=== PATIENT | male | born 1950 | race Caucasian/White ===

== ENCOUNTER 2020-10-07 13:13 | Inpatient (IN) | payer MEDICARE, OTHER ==
[2020-10-07] MEDS ORDERED: Sodium Chloride 0.9% 1,000 ML IV ONE ×2 (13:51→18:30)
--- NOTE | 2020-10-07 13:56 | EDM.PDOC ---
ED HPI GENERAL MEDICAL PROBLEM - General Chief Complaint: General Stated Complaint: NO APPETTIE/WEAKNESS/FALL Time Seen by Provider: 10/07/20 13:16 Source of Information: Reports: Patient History Limitations: Reports: No Limitations - History of Present Illness INITIAL COMMENTS - FREE TEXT/NARRATIVE: Patient is a 69-year-old male who presents today for weakness. Patient states for the past few days been more weak and tired you have difficulty getting himself dressed. He has a friend at the side of the bed who states the patient also has not been eating or drinking as much yesterday brought in food and made him eat a meal. Friend also reports that he came by today and patient was very shaky and cannot hold a glass of water he also notes that his house is very unkempt was not his baseline. Patient has had no fevers chills cough or other complaints. Patient did suffer a fall few days ago and has some bruising to his right hip patient is unsure if he hit his head or not. Bilat Hips Pain Score (Numeric/FACES): 5 - Related Data Allergies Allergy/AdvReac Type Severity Reaction Status Date / Time ammonia Allergy Anaphylactic Verified 03/13/16 10:51 Shock Antihistamines - Alkylamine Allergy Anaphylactic Verified 03/13/16 10:51 Shock Antihistamines - Ethanolamine Allergy Anaphylactic Verified 03/13/16 10:51 Shock Antihistamines - Allergy Anaphylactic Verified 03/13/16 10:51 Ethylenediamine Shock Antihistamines - Piperazine Allergy Anaphylactic Verified 03/13/16 10:51 Shock aspirin Allergy Bleeding Verified 03/13/16 10:51 caffeine Allergy Other Verified 03/13/16 10:51 clindamycin Allergy Redness Verified 03/13/16 10:51 cortisone Allergy Other Verified 03/13/16 10:51 diphenhydramine HCl Allergy Itching Verified 03/13/16 10:51 [From Benadryl] garlic Allergy Anaphylactic Verified 03/13/16 10:51 Shock latex Allergy Itching Verified 03/13/16 10:51 metoprolol Allergy Tachycardia Verified 03/13/16 10:51 NSAIDS (Non-Steroidal Allergy Bleeding Verified 03/13/16 10:51 Anti-Inflamma Penicillins Allergy Hives Verified 03/13/16 10:51 Home Meds: Home Meds Clindamycin HCl 150 mg PO TID 12/06/15 [History] Levothyroxine 25 mcg PO BEDTIME 12/06/15 [History] Montelukast [Singulair] 10 mg PO BEDTIME 12/06/15 [History] Simvastatin 20 mg PO BEDTIME 12/06/15 [History] Warfarin [Coumadin] 2.5 mg PO ASDIRECTED 12/06/15 [History] Warfarin [Coumadin] 5 mg PO ASDIRECTED 12/06/15 [History] Metoprolol Succinate [Toprol XL] 50 mg PO DAILY 30 Days tab.sr.24h 12/07/15 [Rx] Past Medical History HEENT History: Reports: Impaired Vision Other HEENT History: wears glasses Cardiovascular History: Reports: Afib, Hypertension, Other (See Below) Other Cardiovascular History: atrial flutter Respiratory History: Reports: Other (See Below) Other Respiratory History: allergy induced asthma Gastrointestinal History: Reports: GERD Musculoskeletal History: Reports: Back Pain, Chronic, Other (See Below) Other Musculoskeletal History: back pain/injury Psychiatric History: Reports: Dementia, Depression Endocrine/Metabolic History: Reports: Hypothyroidism Dermatologic History: Reports: Eczema, Other (See Below) Other Dermatologic History: hypersensitivity - Infectious Disease History Infectious Disease History: Reports: Influenza, Mumps - Past Surgical History Cardiovascular Surgical History: Reports: Cardiac Ablation GI Surgical History: Reports: None Musculoskeletal Surgical History: Reports: Other (See Below) Other Musculoskeletal Surgeries/Procedures:: cyst removal on his tail bone Social & Family History - Family History Family Medical History: No Pertinent Family History Cardiac: Reports: Bypass, Hypertension, Other (See Below) Other Cardiac Family History: heart attack OBGYN: Reports: Musculoskeletal: Reports: Osteoporosis Neurological: Reports: CVA, TIA Endocrine/Metabolic: Reports: Diabetes, type II Dermatologic: Reports: Eczema Oncologic: Reports: Lung - Caffeine Use Caffeine Use: Reports: None - Recreational Drug Use Recreational Drug Use: No ED ROS GENERAL - Review of Systems Review Of Systems: See Below Constitutional: Reports: No Symptoms HEENT: Reports: No Symptoms Respiratory: Reports: No Symptoms Cardiovascular: Reports: No Symptoms Endocrine: Reports: No Symptoms GI/Abdominal: Reports: No Symptoms : Reports: No Symptoms Musculoskeletal: Reports: No Symptoms Skin: Reports: No Symptoms Neurological: Reports: No Symptoms Psychiatric: Reports: No Symptoms Hematologic/Lymphatic: Reports: No Symptoms Immunologic: Reports: No Symptoms ED EXAM, GENERAL - Physical Exam Exam: See Below Exam Limited By: No Limitations General Appearance: Alert, Lethargic Eye Exam: Bilateral Eye: EOMI, PERRL Respiratory/Chest: No Respiratory Distress, Lungs Clear Cardiovascular: Normal Peripheral Pulses, Regular Rate, Rhythm GI/Abdominal: Normal Bowel Sounds, Soft, Non-Tender Extremities: Normal Inspection, Normal Range of Motion. No: Non-Tender Neurological: Alert, Oriented, CN II-XII Intact, Normal Cognition Course - Vital Signs Last Recorded V/S: Last Vital Signs Temp 98.6 F 10/07/20 13:23 Pulse 100 10/07/20 14:51 Resp 18 10/07/20 14:51 BP 130/80 10/07/20 14:51 Pulse Ox 93 L 10/07/20 14:51 - Orders/Labs/Meds Orders: Active Orders 24 hr Category Date Time Status Patient Status [ADT] Routine ADT 10/07/20 16:19 Ordered Labs: Laboratory Tests 10/07/20 10/07/20 10/07/20 Range/Units 14:08 14:13 14:13 WBC 3.94 L (4.0-11.0) K/uL RBC 3.17 L (4.50-5.90) M/uL Hgb 11.5 L (13.0-17.0) g/dL Hct 32.8 L (38.0-50.0) % MCV 103.5 H (80.0-98.0) fL MCH 36.3 H (27.0-32.0) pg MCHC 35.1 (31.0-37.0) g/dL RDW Std Deviation 51.1 (28.0-62.0) fl RDW Coeff of Dano 14 (11.0-15.0) % Plt Count 137 L (150-400) K/uL MPV 9.70 (7.40-12.00) fL Neut % (Auto) 88.1 H (48.0-80.0) % Lymph % (Auto) 10.9 L (16.0-40.0) % [place] % (Auto) 1.0 (0.0-15.0) % Eos % (Auto) 0.0 (0.0-7.0) % Baso % (Auto) 0.0 (0.0-1.5) % Neut # (Auto) 3.5 (1.4-5.7) K/uL Lymph # (Auto) 0.4 L (0.6-2.4) K/uL [place] # (Auto) 0.0 (0.0-0.8) K/uL Eos # (Auto) 0.0 (0.0-0.7) K/uL Baso # (Auto) 0.0 (0.0-0.1) K/uL Nucleated RBC % 0.0 /100WBC Nucleated RBCs # 0 K/uL INR 1.21 APTT 29.0 (18.6-31.3) SEC Lactate (0.20-2.00) mmol/L Sodium (136-148) mmol/L Potassium (3.5-5.1) mmol/L Chloride (98-107) mmol/L Carbon Dioxide (21.0-32.0) mmol/L BUN (7.0-18.0) mg/dL Creatinine (0.8-1.3) mg/dL Est Cr Clr Drug Dosing mL/min Estimated GFR (MDRD) ml/min Glucose (74-106) mg/dL Calcium (8.5-10.1) mg/dL Magnesium (1.8-2.4) mg/dL Total Bilirubin (0.2-1.0) mg/dL AST (15-37) IU/L ALT (14-63) IU/L Alkaline Phosphatase (46-116) U/L Creatine Kinase (26-308) U/L Total Protein (6.4-8.2) g/dL Albumin (3.4-5.0) g/dL Globulin (2.6-4.0) g/dL Albumin/Globulin Ratio (0.9-1.6) Lipase (73-393) U/L Urine Color DARK YELLOW Urine Appearance CLEAR Urine pH 6.0 (5.0-8.0) Ur Specific [place] 1.025 (1.001-1.035) Urine Protein 100 H (NEGATIVE) mg/dL Urine Glucose (UA) NEGATIVE (NEGATIVE) mg/dL Urine Ketones TRACE H (NEGATIVE) mg/dL Urine Occult Blood NEGATIVE (NEGATIVE) Urine Nitrite NEGATIVE (NEGATIVE) Urine Bilirubin SMALL H (NEGATIVE) Urine Urobilinogen 1.0 (<2.0) EU/dL Ur Leukocyte Esterase NEGATIVE (NEGATIVE) Urine RBC 0-2 (0-2/HPF) Urine WBC 1-3 (0-5/HPF) Ur Epithelial Cells FEW (NONE-FEW) Urine Bacteria FEW (NEGATIVE) Urine Mucus MODERATE (NONE-MOD) Influenza Type A RNA (NEGATIVE) Influenza Type B RNA (NEGATIVE) SARS-CoV-2 RNA (MARIO) (NEGATIVE) 10/07/20 10/07/20 10/07/20 Range/Units 14:13 14:13 15:10 WBC (4.0-11.0) K/uL RBC (4.50-5.90) M/uL Hgb (13.0-17.0) g/dL Hct (38.0-50.0) % MCV (80.0-98.0) fL MCH (27.0-32.0) pg MCHC (31.0-37.0) g/dL RDW Std Deviation (28.0-62.0) fl RDW Coeff of [place]ano (11.0-15.0) % Plt Count (150-400) K/uL MPV (7.40-12.00) fL Neut % (Auto) (48.0-80.0) % Lymph % (Auto) (16.0-40.0) % [place] % (Auto) (0.0-15.0) % Eos % (Auto) (0.0-7.0) % Baso % (Auto) (0.0-1.5) % Neut # (Auto) (1.4-5.7) K/uL Lymph # (Auto) (0.6-2.4) K/uL [place] # (Auto) (0.0-0.8) K/uL Eos # (Auto) (0.0-0.7) K/uL Baso # (Auto) (0.0-0.1) K/uL Nucleated RBC % /100WBC Nucleated RBCs # K/uL INR APTT (18.6-31.3) SEC Lactate 1.4 (0.20-2.00) mmol/L Sodium 134 L (136-148) mmol/L Potassium 4.2 (3.5-5.1) mmol/L Chloride 98 (98-107) mmol/L Carbon Dioxide 25.1 (21.0-32.0) mmol/L BUN 31 H (7.0-18.0) mg/dL Creatinine 1.7 H (0.8-1.3) mg/dL Est Cr Clr Drug Dosing 47.65 mL/min Estimated GFR (MDRD) 40.4 ml/min Glucose 124 H (74-106) mg/dL Calcium 9.0 (8.5-10.1) mg/dL Magnesium 2.0 (1.8-2.4) mg/dL Total Bilirubin 1.2 H (0.2-1.0) mg/dL AST 38 H (15-37) IU/L ALT 33 (14-63) IU/L Alkaline Phosphatase 53 (46-116) U/L Creatine Kinase 140 (26-308) U/L Total Protein 7.6 (6.4-8.2) g/dL Albumin 3.3 L (3.4-5.0) g/dL Globulin 4.3 H (2.6-4.0) g/dL Albumin/Globulin Ratio 0.8 L (0.9-1.6) Lipase 139 (73-393) U/L Urine Color Urine Appearance Urine pH (5.0-8.0) Ur Specific [place] (1.001-1.035) Urine Protein (NEGATIVE) mg/dL Urine Glucose (UA) (NEGATIVE) mg/dL Urine Ketones (NEGATIVE) mg/dL Urine Occult Blood (NEGATIVE) Urine Nitrite (NEGATIVE) Urine Bilirubin (NEGATIVE) Urine Urobilinogen (<2.0) EU/dL Ur Leukocyte Esterase (NEGATIVE) Urine RBC (0-2/HPF) Urine WBC (0-5/HPF) Ur Epithelial Cells (NONE-FEW) Urine Bacteria (NEGATIVE) Urine Mucus (NONE-MOD) Influenza Type A RNA NEGATIVE (NEGATIVE) Influenza Type B RNA NEGATIVE (NEGATIVE) SARS-CoV-2 RNA (MARIO) POSITIVE H (NEGATIVE) Meds: Medications Discontinued Medications Generic Name Dose Route Start Last Admin Trade Name Freq PRN Reason Stop Dose Admin Sodium Chloride 1,000 mls @ 999 mls/hr 10/07/20 13:51 10/07/20 14:12 Normal Saline IV 10/07/20 14:51 999 mls/hr .BOLUS ONE Administration Ondansetron HCl 4 mg 10/07/20 14:22 10/07/20 14:50 Zofran IVPUSH 10/07/20 14:23 4 mg ONETIME ONE Administration - Re-Assessments/Exams Free Text/Narrative Re-Assessment/Exam: 10/07/20 16:20 Patient is Covid positive. Patient still reports weakness and fatigue will be admitted for observation. Departure - Departure Time of Disposition: 16:20 Disposition: Admitted As Inpatient 68 Condition: Good Clinical Impression: COVID-19 - Discharge Information *PRESCRIPTION DRUG MONITORING PROGRAM REVIEWED*: Not Applicable *COPY OF PRESCRIPTION DRUG MONITORING REPORT IN PATIENT ERIKA: Not Applicable Referrals: Godwin Reyes MD [Primary Care Provider] - Forms: ED Department Discharge Sepsis Event Note (ED) - Evaluation Sepsis Screening Result: No Definite Risk - Focused Exam Vital Signs: Vital Signs Temp Pulse Resp BP Pulse Ox 10/07/20 14:51 100 18 130/80 93 L 10/07/20 13:23 98.6 F 101 H 18 99/60 95 - My Orders Last 24 Hours: My Active Orders 10/07/20 16:19 Patient Status [ADT] Routine - Assessment/Plan Last 24 Hours: My Active Orders 10/07/20 16:19 Patient Status [ADT] Routine Assessment:: Patient is a 69-year-old male presents today for weakness. Rule out any signs of infection and also any intracranial injuries. Will obtain labs UA and CT scan of head.
[2020-10-07] MEDS ORDERED: Ondansetron 4 MG/2 ML SDV IVPUSH ONE (14:22)
[2020-10-07 14:49] LABS: CARBON DIOXIDE,CO2 25.1 mmol/L (21.0-32.0); POTASSIUM,K 4.2 mmol/L (3.5-5.1)
--- NOTE | 2020-10-07 14:53 | CT ---
INDICATION: Trauma. Patient fell. COMPARISON: none TECHNIQUE: A CT volumetric acquisition was performed of the brain without IV contrast. FINDINGS: There is no evidence of a subdural or epidural hematoma. There is no evidence of subarachnoid hemorrhage or intraparenchymal bleeding. The CT images reveal a normal appearance of the cerebral ventricles and basal cisterns. There is no evidence of localized tissue infarction or mass effect. There is normal armando white matter differentiation. The mastoid air cells and middle ear cavities are clear. The calvarium appears intact. There is mild inflammation within the paranasal sinuses. IMPRESSION: No evidence of intracranial hemorrhage, infarct or mass effect. Please note that all CT scans at this facility use dose modulation, iterative reconstruction, and/or weight-based dosing when appropriate to reduce radiation dose to as low as reasonably achievable. Dictated by Andrei Escobar MD @ Oct 07 2020 2:45PM Signed by Dr. Andrei Escobar @ Oct 07 2020 2:52PM
--- NOTE | 2020-10-07 15:12 | CR ---
INDICATION: Weakness COMPARISON: none TECHNIQUE: Two view chest. FINDINGS: The lungs are clear. The heart, mediastinum and pulmonary vessels are of normal size. There is no evidence of pleural fluid. IMPRESSION: Negative chest. Dictated by Andrei Escobar MD @ Oct 07 2020 3:08PM Signed by Dr. Andrei Escobar @ Oct 07 2020 3:10PM
--- NOTE | 2020-10-07 15:14 | CR ---
INDICATION: Trauma. Patient fell COMPARISON: none TECHNIQUE: AP pelvis and two-view right hip. FINDINGS: The hips and SI joints are anatomically aligned. There is no evidence of fracture, erosion or intrinsic bone lesion. The soft tissues appear normal. IMPRESSION: No fracture identified. Dictated by Andrei Escobar MD @ Oct 07 2020 3:08PM Signed by Dr. Andrei Escobar @ Oct 07 2020 3:12PM
[2020-10-07 16:05] LABS: CORONAVIRUS COVID-19 NAA POSITIVE (NEGATIVE); INFLUENZA A NAA NEGATIVE (NEGATIVE); INFLUENZA B NAA NEGATIVE (NEGATIVE)
[2020-10-07] MEDS ORDERED: Ondansetron 4 MG Tab.DIS PO PRN (17:53)
[2020-10-07] MEDS ORDERED: Sodium Chloride 0.9% 1,000 ML IV SCH (18:00)
--- NOTE | 2020-10-07 18:23 | PCM.HP.2 ---
H&P History of Present Illness - General Date of Service: 10/07/20 Admit Problem/Dx: Admission Diagnosis/Problem Admission Diagnosis/Problem Weakness Source of Information: Patient, Family History Limitations: Reports: Other (Fatigued) - History of Present Illness Initial Comments - Free Text/Narative: Patient is a 69-year-old gentleman who comes in with weakness and difficulty with his ADLs such as getting dressed, eating, drinking. Was brought in by his nephew who is also his POA's. States that this is not patient's baseline. Patient was last seen October 03, 2020 to be his usual self. Nephew states that on October 05, 2020 they noted that he seemed more unkept and shaky and had not been eating very much. Patient states he has just been feeling weak with chills, with decreased appetite, noted some nausea today. Otherwise denies any fever, cough, shortness of breath, chest pain, sick contacts, recent travel, GI or symptoms. Does share that a few days ago he was feeling increased weakness and fell and bruised his hip. Does not recall any loss of con sciousness or hitting his head. ER course: CBC, CMP, INR, UA, CT head, chest x-ray, hip x-ray, IV bolus 1 L and Zofran for nausea. Bilat Hips Pain Score (Numeric/FACES): 5 - Related Data Allergies/Adverse Reactions: Allergies Allergy/AdvReac Type Severity Reaction Status Date / Time ammonia Allergy Anaphylactic Verified 10/07/20 17:44 Shock Antihistamines - Alkylamine Allergy Anaphylactic Verified 10/07/20 17:44 Shock Antihistamines - Ethanolamine Allergy Anaphylactic Verified 10/07/20 17:44 Shock Antihistamines - Allergy Anaphylactic Verified 10/07/20 17:44 Ethylenediamine Shock Antihistamines - Piperazine Allergy Anaphylactic Verified 10/07/20 17:44 Shock aspirin Allergy Bleeding Verified 10/07/20 17:44 caffeine Allergy Other Verified 10/07/20 17:44 clindamycin Allergy Redness Verified 10/07/20 17:44 cortisone Allergy Other Verified 10/07/20 17:44 diphenhydramine HCl Allergy Itching Verified 10/07/20 17:44 [From Benadryl] garlic Allergy Anaphylactic Verified 10/07/20 17:44 Shock latex Allergy Itching Verified 10/07/20 17:44 metoprolol Allergy Tachycardia Verified 10/07/20 17:44 NSAIDS (Non-Steroidal Allergy Bleeding Verified 10/07/20 17:44 Anti-Inflamma Penicillins Allergy Hives Verified 10/07/20 17:44 Home Medications: Home Meds Clindamycin HCl 150 mg PO TID 12/06/15 [History] Levothyroxine 25 mcg PO BEDTIME 12/06/15 [History] Montelukast [Singulair] 10 mg PO BEDTIME 12/06/15 [History] Simvastatin 20 mg PO BEDTIME 12/06/15 [History] Warfarin [Coumadin] 2.5 mg PO ASDIRECTED 12/06/15 [History] Warfarin [Coumadin] 5 mg PO ASDIRECTED 12/06/15 [History] Metoprolol Succinate [Toprol XL] 50 mg PO DAILY 30 Days tab.sr.24h 12/07/15 [Rx] Past Medical History HEENT History: Reports: Impaired Vision Other HEENT History: wears glasses Cardiovascular History: Reports: Afib, Hypertension, Other (See Below) Other Cardiovascular History: atrial flutter Respiratory History: Reports: Other (See Below) Other Respiratory History: allergy induced asthma Gastrointestinal History: Reports: GERD Musculoskeletal History: Reports: Back Pain, Chronic, Other (See Below) Other Musculoskeletal History: back pain/injury Psychiatric History: Reports: Dementia, Depression Endocrine/Metabolic History: Reports: Hypothyroidism Dermatologic History: Reports: Eczema, Other (See Below) Other Dermatologic History: hypersensitivity - Infectious Disease History Infectious Disease History: Reports: Influenza, Mumps - Past Surgical History Cardiovascular Surgical History: Reports: Cardiac Ablation GI Surgical History: Reports: None Musculoskeletal Surgical History: Reports: Other (See Below) Other Musculoskeletal Surgeries/Procedures:: cyst removal on his tail bone Social & Family History - Family History Family Medical History: No Pertinent Family History Cardiac: Reports: Bypass, Hypertension, Other (See Below) Other Cardiac Family History: heart attack OBGYN: Reports: Musculoskeletal: Reports: Osteoporosis Neurological: Reports: CVA, TIA Endocrine/Metabolic: Reports: Diabetes, type II Dermatologic: Reports: Eczema Oncologic: Reports: Lung - Tobacco Use Tobacco Use Status *Q: Never Tobacco User Second Hand Smoke Exposure: No - Caffeine Use Caffeine Use: Reports: None - Recreational Drug Use Recreational Drug Use: No H&P Review of Systems - Review of Systems: Review Of Systems: Comprehensive ROS is negative, except as noted in HPI. Exam - Exam Exam: See Below - Vital Signs Vital Signs: Last Vital Signs Temp 97.6 F 10/07/20 17:38 Pulse 92 10/07/20 17:38 Resp 16 10/07/20 17:38 BP 116/66 10/07/20 17:38 Pulse Ox 96 10/07/20 17:38 Weight: 176 lb 11.2 oz - Exam Quality Assessment: DVT Prophylaxis (On home dose of warfarin) General: Alert, Oriented (Oriented x3, confused about which hospital he was at), Cooperative HEENT: Conjunctiva Clear, EOMI, PERRLA Neck: Supple, Trachea Midline, +2 Carotid Pulse wo Bruit, Lymphadenopathy, JVD Lungs: Clear to Auscultation, Normal Respiratory Effort Cardiovascular: Regular Rate, Regular Rhythm GI/Abdominal Exam: Normal Bowel Sounds, Soft, Non-Tender, No Distention, No Mass Back Exam: Normal Inspection, Full Range of Motion Extremities: Normal Inspection, Normal Range of Motion, Non-Tender, No Pedal Edema, Normal Capillary Refill Peripheral Pulses: 2+: Radial (L), Radial (R), Dorsalis Pedis (L), Dorsalis Pedis (R) Skin: Warm, Dry, Intact Neurological: Cranial Nerves Intact, Reflexes Equal Bilateral Neuro Extensive - Mental Status: Alert, Disorientation to Place, Inattentive Neuro Extensive - Motor, Sensory, Reflexes: CN II-XII Intact, Normal Reflexes Psychiatric: Alert - Patient Data Lab Results Last 24 hrs: Laboratory Results - last 24 hr 10/07/20 10/07/20 10/07/20 Range/Units 14:08 14:13 14:13 WBC 3.94 L (4.0-11.0) K/uL RBC 3.17 L (4.50-5.90) M/uL Hgb 11.5 L (13.0-17.0) g/dL Hct 32.8 L (38.0-50.0) % MCV 103.5 H (80.0-98.0) fL MCH 36.3 H (27.0-32.0) pg MCHC 35.1 (31.0-37.0) g/dL RDW Std Deviation 51.1 (28.0-62.0) fl RDW Coeff of Dano 14 (11.0-15.0) % Plt Count 137 L (150-400) K/uL MPV 9.70 (7.40-12.00) fL Neut % (Auto) 88.1 H (48.0-80.0) % Lymph % (Auto) 10.9 L (16.0-40.0) % Graves % (Auto) 1.0 (0.0-15.0) % Eos % (Auto) 0.0 (0.0-7.0) % Baso % (Auto) 0.0 (0.0-1.5) % Neut # (Auto) 3.5 (1.4-5.7) K/uL Lymph # (Auto) 0.4 L (0.6-2.4) K/uL Graves # (Auto) 0.0 (0.0-0.8) K/uL Eos # (Auto) 0.0 (0.0-0.7) K/uL Baso # (Auto) 0.0 (0.0-0.1) K/uL Nucleated RBC % 0.0 /100WBC Nucleated RBCs # 0 K/uL INR 1.21 APTT 29.0 (18.6-31.3) SEC Lactate (0.20-2.00) mmol/L Sodium (136-148) mmol/L Potassium (3.5-5.1) mmol/L Chloride (98-107) mmol/L Carbon Dioxide (21.0-32.0) mmol/L BUN (7.0-18.0) mg/dL Creatinine (0.8-1.3) mg/dL Est Cr Clr Drug Dosing mL/min Estimated GFR (MDRD) ml/min Glucose (74-106) mg/dL Calcium (8.5-10.1) mg/dL Magnesium (1.8-2.4) mg/dL Total Bilirubin (0.2-1.0) mg/dL AST (15-37) IU/L ALT (14-63) IU/L Alkaline Phosphatase (46-116) U/L Creatine Kinase (26-308) U/L Total Protein (6.4-8.2) g/dL Albumin (3.4-5.0) g/dL Globulin (2.6-4.0) g/dL Albumin/Globulin Ratio (0.9-1.6) Lipase (73-393) U/L Urine Color DARK YELLOW Urine Appearance CLEAR Urine pH 6.0 (5.0-8.0) Ur Specific Deville 1.025 (1.001-1.035) Urine Protein 100 H (NEGATIVE) mg/dL Urine Glucose (UA) NEGATIVE (NEGATIVE) mg/dL Urine Ketones TRACE H (NEGATIVE) mg/dL Urine Occult Blood NEGATIVE (NEGATIVE) Urine Nitrite NEGATIVE (NEGATIVE) Urine Bilirubin SMALL H (NEGATIVE) Urine Urobilinogen 1.0 (<2.0) EU/dL Ur Leukocyte Esterase NEGATIVE (NEGATIVE) Urine RBC 0-2 (0-2/HPF) Urine WBC 1-3 (0-5/HPF) Ur Epithelial Cells FEW (NONE-FEW) Urine Bacteria FEW (NEGATIVE) Urine Mucus MODERATE (NONE-MOD) Influenza Type A RNA (NEGATIVE) Influenza Type B RNA (NEGATIVE) SARS-CoV-2 RNA (MARIO) (NEGATIVE) 10/07/20 10/07/20 10/07/20 Range/Units 14:13 14:13 15:10 WBC (4.0-11.0) K/uL RBC (4.50-5.90) M/uL Hgb (13.0-17.0) g/dL Hct (38.0-50.0) % MCV (80.0-98.0) fL MCH (27.0-32.0) pg MCHC (31.0-37.0) g/dL RDW Std Deviation (28.0-62.0) fl RDW Coeff of Dano (11.0-15.0) % Plt Count (150-400) K/uL MPV (7.40-12.00) fL Neut % (Auto) (48.0-80.0) % Lymph % (Auto) (16.0-40.0) % Graves % (Auto) (0.0-15.0) % Eos % (Auto) (0.0-7.0) % Baso % (Auto) (0.0-1.5) % Neut # (Auto) (1.4-5.7) K/uL Lymph # (Auto) (0.6-2.4) K/uL Graves # (Auto) (0.0-0.8) K/uL Eos # (Auto) (0.0-0.7) K/uL Baso # (Auto) (0.0-0.1) K/uL Nucleated RBC % /100WBC Nucleated RBCs # K/uL INR APTT (18.6-31.3) SEC Lactate 1.4 (0.20-2.00) mmol/L Sodium 134 L (136-148) mmol/L Potassium 4.2 (3.5-5.1) mmol/L Chloride 98 (98-107) mmol/L Carbon Dioxide 25.1 (21.0-32.0) mmol/L BUN 31 H (7.0-18.0) mg/dL Creatinine 1.7 H (0.8-1.3) mg/dL Est Cr Clr Drug Dosing 47.65 mL/min Estimated GFR (MDRD) 40.4 ml/min Glucose 124 H (74-106) mg/dL Calcium 9.0 (8.5-10.1) mg/dL Magnesium 2.0 (1.8-2.4) mg/dL Total Bilirubin 1.2 H (0.2-1.0) mg/dL AST 38 H (15-37) IU/L ALT 33 (14-63) IU/L Alkaline Phosphatase 53 (46-116) U/L Creatine Kinase 140 (26-308) U/L Total Protein 7.6 (6.4-8.2) g/dL Albumin 3.3 L (3.4-5.0) g/dL Globulin 4.3 H (2.6-4.0) g/dL Albumin/Globulin Ratio 0.8 L (0.9-1.6) Lipase 139 (73-393) U/L Urine Color Urine Appearance Urine pH (5.0-8.0) Ur Specific Deville (1.001-1.035) Urine Protein (NEGATIVE) mg/dL Urine Glucose (UA) (NEGATIVE) mg/dL Urine Ketones (NEGATIVE) mg/dL Urine Occult Blood (NEGATIVE) Urine Nitrite (NEGATIVE) Urine Bilirubin (NEGATIVE) Urine Urobilinogen (<2.0) EU/dL Ur Leukocyte Esterase (NEGATIVE) Urine RBC (0-2/HPF) Urine WBC (0-5/HPF) Ur Epithelial Cells (NONE-FEW) Urine Bacteria (NEGATIVE) Urine Mucus (NONE-MOD) Influenza Type A RNA NEGATIVE (NEGATIVE) Influenza Type B RNA NEGATIVE (NEGATIVE) SARS-CoV-2 RNA (MARIO) POSITIVE H (NEGATIVE) Result Diagrams: 10/07/20 14:13 10/07/20 14:13 Sepsis Event Note - Evaluation Sepsis Screening Result: No Definite Risk - Focused Exam Vital Signs: Vital Signs Temp Pulse Resp BP Pulse Ox 10/07/20 17:38 97.6 F 92 16 116/66 96 10/07/20 17:00 94 18 114/78 93 L 10/07/20 16:30 98 16 126/71 92 L 10/07/20 16:00 97 18 128/71 93 L 10/07/20 14:51 100 18 130/80 93 L 10/07/20 13:23 98.6 F 101 H 18 99/60 95 - Problem List (1) COVID-19 SNOMED Code(s): 171855375 ICD Code: U07.1 - COVID-19 Status: Acute Current Visit: Yes (2) Atrial fibrillation with RVR SNOMED Code(s): 834436374449170 ICD Code: I48.91 - UNSPECIFIED ATRIAL FIBRILLATION Status: Acute Priority: High Current Visit: No Problem List Initiated/Reviewed/Updated: Yes Orders Last 24hrs: Active Orders 24 hr Category Date Time Status Patient Status [ADT] Routine ADT 10/07/20 16:40 Active Antiembolic Devices [RC] PER UNIT ROUTINE Care 10/07/20 17:54 Active Oxygen Therapy [RC] PRN Care 10/07/20 17:53 Active Telemetry Monitoring [Cardiac Monitoring] [RC] . Care 10/07/20 18:10 Active DIRECTED Up With Assistance [RC] ASDIRECTED Care 10/07/20 17:53 Active VTE/DVT Education [RC] PER UNIT ROUTINE Care 10/07/20 17:53 Active Vital Signs [RC] Q4H Care 10/07/20 17:53 Active PT Evaluation and Treatment [CONS] Routine Cons 10/07/20 17:53 Active Heart Healthy Diet [DIET] Diet 10/07/20 Dinner Active CBC WITH AUTO DIFF [HEME] AM Lab 10/08/20 05:11 Ordered CBC WITH AUTO DIFF [HEME] AM Lab 10/09/20 05:11 Ordered CBC WITH AUTO DIFF [HEME] AM Lab 10/10/20 05:11 Ordered CBC WITH AUTO DIFF [HEME] AM Lab 10/11/20 05:11 Ordered CBC WITH AUTO DIFF [HEME] AM Lab 10/12/20 05:11 Ordered COMPREHENSIVE METABOLIC PN,CMP [CHEM] AM Lab 10/08/20 05:11 Ordered COMPREHENSIVE METABOLIC PN,CMP [CHEM] AM Lab 10/09/20 05:11 Ordered COMPREHENSIVE METABOLIC PN,CMP [CHEM] AM Lab 10/10/20 05:11 Ordered COMPREHENSIVE METABOLIC PN,CMP [CHEM] AM Lab 10/11/20 05:11 Ordered COMPREHENSIVE METABOLIC PN,CMP [CHEM] AM Lab 10/12/20 05:11 Ordered INR,PT,PROTHROMBIN TIME [COAG] AM Lab 10/08/20 05:11 Ordered INR,PT,PROTHROMBIN TIME [COAG] AM Lab 10/09/20 05:11 Ordered INR,PT,PROTHROMBIN TIME [COAG] AM Lab 10/10/20 05:11 Ordered INR,PT,PROTHROMBIN TIME [COAG] AM Lab 10/11/20 05:11 Ordered INR,PT,PROTHROMBIN TIME [COAG] AM Lab 10/12/20 05:11 Ordered Levothyroxine Med 10/07/20 21:00 Pending 25 mcg PO BEDTIME Metoprolol Succinate [Toprol XL] Med 10/08/20 09:00 Pending 50 mg PO DAILY Montelukast [Singulair] Med 10/07/20 21:00 Pending 10 mg PO BEDTIME Ondansetron [Zofran ODT] Med 10/07/20 17:53 Active 4 mg PO Q4H PRN Pantoprazole [ProTONIX IV] 40 mg Med 10/08/20 09:00 Active Sodium Chloride 0.9% [Normal Saline] 10 ml IV DAILY Simvastatin [Zocor] Med 10/07/20 21:00 Pending 20 mg PO BEDTIME Sodium Chloride 0.9% [Normal Saline] 1,000 ml Med 10/07/20 18:30 Active IV ASDIRECTED Warfarin Dosing [Coumadin Ask] Med 10/07/20 18:03 Pending 1 each PO DAILY ONE Warfarin [Coumadin] Med 10/07/20 18:15 Pending 2.5 mg PO ASDIRECTED Warfarin [Coumadin] Med 10/07/20 18:15 Pending 5 mg PO ASDIRECTED Sequential Compression Device [OM.PC] Per Unit Routine Oth 10/07/20 17:54 Ordered Resuscitation Status Routine Resus Stat 10/07/20 17:53 Ordered Medication Orders Sodium Chloride (Normal Saline) 1,000 mls @ 125 mls/hr IV ASDIRECTED ONE Stop: 10/08/20 02:29 Pantoprazole Sodium 40 mg/ (Sodium Chloride) 10 mls @ 300 mls/hr IV DAILY GINGER Levothyroxine Sodium (Levothyroxine) 25 mcg PO BEDTIME GINGER Metoprolol Succinate (Toprol Xl) 50 mg PO DAILY GINGER Montelukast Sodium (Singulair) 10 mg PO BEDTIME GINGER Ondansetron HCl (Zofran Odt) 4 mg PO Q4H PRN PRN Reason: nausea, able to take PO Simvastatin (Zocor) 20 mg PO BEDTIME GINGER Warfarin Sodium (Coumadin Ask) 1 each PO DAILY ONE Stop: 10/07/20 18:04 Warfarin Sodium (Coumadin) 2.5 mg PO ASDIRECTED GINGER Warfarin Sodium (Coumadin) 5 mg PO ASDIRECTED GINGER Assessment/Plan Comment:: 69-year-old gentleman with for newfound weakness and difficulty performing ADLs with history of Lewy body dementia. Covid positive without respiratory symptoms. 1. Malnutrition/weakness: Urine with protein and ketones, decreased appetite, some nausea treat with Zofran 4 mg as needed, was given 1 L bolus in the ED, provide normal saline 1 L at 125 cc/h. Heart healthy diet, CT scan was negative, consider advanced dementia possible outpatient follow-up with Dr. Thakkar and will likely need SNF referral. 2. Covid positive: No respiratory or GI symptoms, airborne precautions, continue to monitor closely, DVT prophylaxis mentioned below, will to use SCDs 3. A. fib history: Ask pharmacy to dose, daily PT/INR, goal of therapeutic range 2-3, currently patient is subtherapeutic 1.0, as patient may have missed doses in the last 2 days. In the interim to also use SCDs. We will continue to monitor on telemetry 4. Possible macrocytic anemia: Hemoglobin 11.5, hematocrit 32.8, MCV 104, monitor daily CBC, consider iron studies, no source of bleed noted. GI prophylaxis 40 IV pantoprazole daily, SCDs and Coumadin for DVT prophylaxis, Zofran for nausea, heart healthy diet
[2020-10-07] MEDS: Montelukast 10 MG Tab PO SCH (20:39)
[2020-10-07] MEDS: Simvastatin 20 MG Tab PO SCH (20:39)
[2020-10-07] MEDS ORDERED: Diltiazem 25 MG/5 ML SDV IVPUSH ONE ×2 (21:31→22:50)
[2020-10-07] MEDS: Levothyroxine 25 MCG Tab PO SCH (22:11)
[2020-10-07] MEDS ORDERED: Diltiazem 25 MG/5 ML SDV IVPUSH PRN (22:23)
[2020-10-07] MEDS ORDERED: Digoxin 500 MCG/2 ML Amp IVPUSH ONE (22:50)
[2020-10-07] MEDS ORDERED: LORazepam 2 MG/ML SDV IVPUSH ONE (23:19)
[2020-10-07] MEDS: Acetaminophen 325 MG Tab PO PRN (23:39)
--- NOTE | 2020-10-08 02:32 | PN ---
KRISHAN Physician - Brief Progress EwnoYMBRMLEJH37/05/2021 01:38[facility] Charli Em, [place] - [facility] MWN ICUALLEN MONSE RamirezAbby, COVID+Date of Service 10/08/2020 01:38HPI/ Events of Note Case discussed with RN. 69 year old M admitted with covid, transferred to ICU for cande b RVR. Now on cardizem IVP/digoxin per primary service. 100-110s 106/64 92% 102.3Recs include: hemodynamic monitoring, cardizem/dig per primary service, on coumadin AC, consider cardio eval and e cho when available, supplemental O2 PRN, GI and DVT prophylaxis, low threshold for abx, check culture s, trend LA, COVID treatment protocol per primary service, increase fluids to 150/hr, replace lytes a s needed, trend Cr, glycemic monitoring, pain control, neuro checks.Interventions Minor-Communication with other healthcare providers and/or familyElectronically Signed by: ALEKSANDAR BAPTISTE () on 10/08 02:31
[2020-10-08] MEDS ORDERED: LORazepam 2 MG/ML SDV IVPUSH ONE (03:22)
--- NOTE | 2020-10-08 04:32 | PN ---
KRISHAN Physician - Brief Progress [id number]/05/2021 03:23[facility] rhina Black, [place] [facility] [place] ([place]) - [place] [place] COVID+Date of Service 10/08/2020 03:23HPI/ Events of Note Discussed with RN: Akash quiros.Plan: trial of ativan.Interventions Minor-Communication with other healthcare providers and/or familyElectronically Signed by: ALEKSANDAR BAPTISTE () on 2020 03:24
[2020-10-08 05:53] LABS: CARBON DIOXIDE,CO2 25.6 mmol/L (21.0-32.0); POTASSIUM,K 3.9 mmol/L (3.5-5.1)
[2020-10-08] MEDS ORDERED: Warfarin 5 MG Tab PO SCH ×3 (09:00→14:00)
[2020-10-08] MEDS: Metoprolol Succinate 25 MG Tab.ER PO SCH (10:31)
[2020-10-08] MEDS: Pantoprazole 40 MG in Sodium Chloride 0.9% 10 ML IV SCH (10:31)
[2020-10-08] MEDS: Sodium Chloride 0.9% 1,000 ML IV SCH ×2 (10:36→19:49)
[2020-10-08] MEDS: Acetaminophen 325 MG Tab PO PRN ×2 (10:39→20:23)
[2020-10-08] MEDS: Levofloxacin/Dextrose 5%-Water 750 MG in Premix Bag 1 BAG IV SCH (10:41)
--- NOTE | 2020-10-08 15:20 | CT ---
Examination: CTA chest - pulmonary embolism protocol Indication: Tachycardia and hypoxia Technique: Contiguous axial CT images of the chest were acquired after the uneventful administration of IV contrast. Coronal and sagittal reformations generated and reviewed. 3D MIP images generated and reviewed. Comparison: Chest radiograph from 1 day prior Findings: No central pulmonary embolism. Evaluation of distal segmental and subsegmental vessels is limited in the lower lungs due to respiratory motion artifact. Normal caliber main pulmonary artery. Normal heart size. Coronary artery calcifications. No pericardial effusion. Normal course and caliber of thoracic aorta. No enlarged mediastinal, axillary, or supraclavicular lymphadenopathy by CT size criteria. Normal esophagus. Visualized portions of thyroid unremarkable. Extensive bilateral ground-glass and consolidative opacities. These are most significant in the dependent portions of the lower lobes bilaterally but are noted in bilateral upper lobes and in the right middle lobe as well. No pleural effusion or pneumothorax. Central airways are patent. No discrete pulmonary nodules though the pulmonary opacities and respiratory motion artifact slightly degrades evaluation. Limited arterial phase images of upper abdomen are unremarkable. No acute or aggressive appearing osseous lesions. Impression: 1. No pulmonary embolism. Evaluation of distal segmental and subsegmental vessels in lower lungs limited by respiratory motion artifact. 2. Bilateral ground-glass and consolidative opacities predominantly in the dependent portions of the lower lobes bilaterally. This could be due to multifocal pneumonia or aspiration. Please note that all CT scans at this facility use dose modulation, iterative reconstruction, and/or weight-based dosing when appropriate to reduce radiation dose to as low as reasonably achievable. Dictated by Hany Lizarraga MD @ Oct 08 2020 3:09PM Signed by Dr. Hany Lizarraga @ Oct 08 2020 3:18PM
[2020-10-08] MEDS ORDERED: Iopamidol 755 MG/ML 500 ML Multipack Bottle IVPUSH STA (15:32)
--- NOTE | 2020-10-08 16:53 | PCM.PN ---
- General Info Date of Service: 10/08/20 Subjective Update: 69-year-old male with history of Lewy body dementia recently was diagnosed with Covid respiratory symptoms but have not found to have significant decline with failure to thrive. Overnight became febrile requiring Tylenol and had episodes of A. fib with RVR therefore was given 2 times Cardizem IV push. She remains on room air resting comfortably this morning, was alert and oriented x2, unable to identify which month. However overnight patient was quite agitated getting undressed pulling his IV and telemetry. This morning patient was seen and examined at bedside appears afebrile but mildly tachycardic and tachypneic. Satting 92% on room air. Patient did not appear short of breath, in any acute distress or have any leg swelling or pain. Functional Status: Reports: Tolerating Diet - Review of Systems General: Reports: No Symptoms HEENT: Reports: No Symptoms Pulmonary: Reports: No Symptoms Cardiovascular: Reports: No Symptoms Gastrointestinal: Reports: No Symptoms Genitourinary: Reports: No Symptoms Musculoskeletal: Reports: No Symptoms Skin: Reports: No Symptoms Neurological: Reports: No Symptoms Psychiatric: Reports: Confusion (Unable to determine date or time of day) - Patient Data Vitals - Most Recent: Last Vital Signs Temp 98.3 F 10/08/20 16:00 Pulse 118 H 10/08/20 10:31 Resp 25 H 10/08/20 16:00 BP 110/60 10/08/20 16:00 Pulse Ox 97 10/08/20 16:00 Weight - Most Recent: 180 lb 9.466 oz I&O - Last 24 Hours: Intake & Output 10/08/20 10/08/20 10/08/20 06:59 14:59 22:59 Intake Total 350 160 Balance 350 160 Lab Results Last 24 Hours: Laboratory Results - last 24 hr 10/07/20 10/08/20 10/08/20 Range/Units 14:13 02:07 04:36 WBC 3.38 L (4.0-11.0) K/uL RBC 2.65 L (4.50-5.90) M/uL Hgb 10.0 L (13.0-17.0) g/dL Hct 28.1 L (38.0-50.0) % MCV 106.0 H (80.0-98.0) fL MCH 37.7 H (27.0-32.0) pg MCHC 35.6 (31.0-37.0) g/dL RDW Std Deviation 51.7 (28.0-62.0) fl RDW Coeff of Dano 14 (11.0-15.0) % Plt Count 119 L (150-400) K/uL MPV 10.00 (7.40-12.00) fL Neut % (Auto) 85.5 H (48.0-80.0) % Lymph % (Auto) 14.2 L (16.0-40.0) % Summers % (Auto) 0.3 (0.0-15.0) % Eos % (Auto) 0.0 (0.0-7.0) % Baso % (Auto) 0.0 (0.0-1.5) % Neut # (Auto) 2.9 (1.4-5.7) K/uL Lymph # (Auto) 0.5 L (0.6-2.4) K/uL Summers # (Auto) 0.0 (0.0-0.8) K/uL Eos # (Auto) 0.0 (0.0-0.7) K/uL Baso # (Auto) 0.0 (0.0-0.1) K/uL Nucleated RBC % 0.0 /100WBC Nucleated RBCs # 0 K/uL INR Lactate 0.9 (0.20-2.00) mmol/L Sodium (136-148) mmol/L Potassium (3.5-5.1) mmol/L Chloride (98-107) mmol/L Carbon Dioxide (21.0-32.0) mmol/L BUN (7.0-18.0) mg/dL Creatinine (0.8-1.3) mg/dL Est Cr Clr Drug Dosing mL/min Estimated GFR (MDRD) ml/min Glucose (74-106) mg/dL Calcium (8.5-10.1) mg/dL Total Bilirubin (0.2-1.0) mg/dL AST (15-37) IU/L ALT (14-63) IU/L Alkaline Phosphatase (46-116) U/L Total Protein (6.4-8.2) g/dL Albumin (3.4-5.0) g/dL Globulin (2.6-4.0) g/dL Albumin/Globulin Ratio (0.9-1.6) TSH 3rd Generation 1.63 (0.36-3.74) uIU/mL 10/08/20 10/08/20 Range/Units 04:36 04:36 WBC (4.0-11.0) K/uL RBC (4.50-5.90) M/uL Hgb (13.0-17.0) g/dL Hct (38.0-50.0) % MCV (80.0-98.0) fL MCH (27.0-32.0) pg MCHC (31.0-37.0) g/dL RDW Std Deviation (28.0-62.0) fl RDW Coeff of Dano (11.0-15.0) % Plt Count (150-400) K/uL MPV (7.40-12.00) fL Neut % (Auto) (48.0-80.0) % Lymph % (Auto) (16.0-40.0) % Summers % (Auto) (0.0-15.0) % Eos % (Auto) (0.0-7.0) % Baso % (Auto) (0.0-1.5) % Neut # (Auto) (1.4-5.7) K/uL Lymph # (Auto) (0.6-2.4) K/uL Summers # (Auto) (0.0-0.8) K/uL Eos # (Auto) (0.0-0.7) K/uL Baso # (Auto) (0.0-0.1) K/uL Nucleated RBC % /100WBC Nucleated RBCs # K/uL INR 1.30 Lactate (0.20-2.00) mmol/L Sodium 135 L (136-148) mmol/L Potassium 3.9 (3.5-5.1) mmol/L Chloride 100 (98-107) mmol/L Carbon Dioxide 25.6 (21.0-32.0) mmol/L BUN 25 H (7.0-18.0) mg/dL Creatinine 1.3 (0.8-1.3) mg/dL Est Cr Clr Drug Dosing 62.32 mL/min Estimated GFR (MDRD) 55.1 ml/min Glucose 108 H (74-106) mg/dL Calcium 8.4 L (8.5-10.1) mg/dL Total Bilirubin 1.2 H (0.2-1.0) mg/dL AST 34 (15-37) IU/L ALT 33 (14-63) IU/L Alkaline Phosphatase 43 L (46-116) U/L Total Protein 6.4 (6.4-8.2) g/dL Albumin 2.7 L (3.4-5.0) g/dL Globulin 3.7 (2.6-4.0) g/dL Albumin/Globulin Ratio 0.7 L (0.9-1.6) TSH 3rd Generation (0.36-3.74) uIU/mL Med Orders - Current: Current Medications Acetaminophen (Tylenol) 650 mg PO Q6H PRN PRN Reason: fever/pain Last Admin: 10/08/20 10:39 Dose: 650 mg Documented by: Diltiazem HCl (Diltiazem) 10 mg IVPUSH Q3H PRN PRN Reason: HR above 110 Pantoprazole Sodium 40 mg/ (Sodium Chloride) 10 mls @ 300 mls/hr IV DAILY [facility] Last Admin: 10/08/20 10:31 Dose: 300 mls/hr Documented by: Sodium Chloride (Normal Saline) 1,000 mls @ 150 mls/hr IV ASDIRECTED [facility] TO [facility] Last Admin: 10/08/20 10:36 Dose: 150 mls/hr Documented by: Levofloxacin/Dextrose 750 mg/ (Premix) 150 mls @ 100 mls/hr IV Q24H [facility] Last Admin: 10/08/20 10:41 Dose: 100 mls/hr Documented by: Levothyroxine Sodium (Levothyroxine) 25 mcg PO BEDTIME [facility] Last Admin: 10/07/20 22:11 Dose: 25 mcg Documented by: Metoprolol Succinate (Toprol Xl) 50 mg PO DAILY [facility] Last Admin: 10/08/20 10:31 Dose: 50 mg Documented by: Montelukast Sodium (Singulair) 10 mg PO BEDTIME [facility] Last Admin: 10/07/20 20:39 Dose: 10 mg Documented by: Ondansetron HCl (Zofran Odt) 4 mg PO Q4H PRN PRN Reason: nausea, able to take PO Simvastatin (Zocor) 20 mg PO BEDTIME [facility] Last Admin: 10/07/20 20:39 Dose: 20 mg Documented by: Warfarin Sodium (Coumadin Ask) 1 each PO DAILY@1400 [facility] Last Admin: 10/08/20 16:30 Dose: Not Given Documented by: Discontinued Medications Digoxin (Lanoxin) 250 mcg IVPUSH ONETIME ONE Stop: 10/07/20 22:51 Last Admin: 10/08/20 00:31 Dose: 250 mcg Documented by: Diltiazem HCl (Diltiazem) 10 mg IVPUSH ONETIME ONE Stop: 10/07/20 21:32 Last Admin: 10/07/20 22:10 Dose: 10 mg Documented by: Diltiazem HCl (Diltiazem) 10 mg IVPUSH ONETIME ONE Stop: 10/07/20 22:51 Last Admin: 10/07/20 23:12 Dose: 10 mg Documented by: Sodium Chloride (Normal Saline) 1,000 mls @ 999 mls/hr IV .BOLUS ONE Stop: 10/07/20 14:51 Last Admin: 10/07/20 14:12 Dose: 999 mls/hr Documented by: Sodium Chloride (Normal Saline) 1,000 mls @ 125 mls/hr IV ASDIRECTED [facility]ING[facility] Sodium Chloride (Normal Saline) 1,000 mls @ 150 mls/hr IV ASDIRECTED ONE Stop: 10/08/20 01:09 Last Admin: 10/07/20 18:43 Dose: 125 mls/hr Documented by: Iopamidol (Isovue Multipack-370 (76%)) 80 ml IVPUSH ONETIME STA Stop: 10/08/20 15:33 Last Admin: 10/08/20 15:33 Dose: 80 ml Documented by: Lorazepam (Ativan) 1 mg IVPUSH ONETIME ONE Stop: 10/07/20 23:20 Last Admin: 10/07/20 23:38 Dose: 1 mg Documented by: Lorazepam (Ativan) 0.5 mg IVPUSH ONETIME ONE Stop: 10/08/20 03:23 Last Admin: 10/08/20 16:27 Dose: Not Given Documented by: Ondansetron HCl (Zofran) 4 mg IVPUSH ONETIME ONE Stop: 10/07/20 14:23 Last Admin: 10/07/20 14:50 Dose: 4 mg Documented by: Warfarin Sodium (Coumadin) 5 mg PO [facility] Warfarin Sodium (Coumadin) 5 mg PO 10/08/20@0930 [facility] Stop: 10/08/20 09:31 Last Admin: 10/08/20 10:40 Dose: 5 mg Documented by: - Exam Quality Assessment: DVT Prophylaxis (Home dose of warfarin ) General: Alert, No Acute Distress HEENT: Pupils Equal, Pupils Reactive, EOMI, Mucous Membr. Moist/[place] Neck: Supple. No: Lymphadenopathy Lungs: Clear to Auscultation, Normal Respiratory Effort Cardiovascular: Irregular Rhythm (Remains in A. fib), Tachycardia GI/Abdominal Exam: Normal Bowel Sounds, Soft, Non-Tender, No Distention, Pelvis Stable Extremities: Normal Inspection, Normal Range of Motion, Non-Tender, No Pedal Edema, Normal Capillary Refill Peripheral Pulses: 2+: Radial (L), Radial (R), Dorsalis Pedis (L), Dorsalis Pedis (R) Skin: Warm, Dry, Intact Neurological: No New Focal Deficit Psy/Mental Status: Alert, Other (Per POA not his baseline) Sepsis Event Note - Evaluation Sepsis Screening Result: Sepsis Risk - Focused Exam Vital Signs: Vital Signs Temp Temp Pulse Pulse Resp BP BP 10/08/20 16:00 98.3 F 25 H 110/60 10/08/20 15:00 23 H 113/62 10/08/20 14:00 15 123/62 10/08/20 13:00 19 114/54 L 10/08/20 12:00 99.3 F 22 H 107/50 L 10/08/20 11:00 26 H 140/56 L 10/08/20 10:39 104.6 F H 10/08/20 10:31 118 H 108/57 L 10/08/20 10:00 104.6 F H 37 H 108/57 L 10/08/20 09:00 29 H 116/70 10/08/20 08:00 98.6 F 33 H 111/74 10/08/20 07:00 98.6 F 103 H 29 H 111/74 10/08/20 06:00 98.6 F 111 H 25 H 112/50 L 10/08/20 05:00 98.8 F 99 28 H 111/65 Pulse Ox 10/08/20 16:00 97 10/08/20 15:00 98 10/08/20 14:00 96 10/08/20 13:00 94 L 10/08/20 12:00 88 L 10/08/20 11:00 92 L 10/08/20 10:39 10/08/20 10:31 10/08/20 10:00 90 L 10/08/20 09:00 10/08/20 08:00 92 L 10/08/20 07:00 92 L 10/08/20 06:00 98 10/08/20 05:00 94 L - Problem List & Annotations (1) COVID-19 SNOMED Code(s): 914563437 Code(s): U07.1 - COVID-19 Status: Acute Current Visit: Yes (2) Atrial fibrillation with RVR SNOMED Code(s): 642924212460632 Code(s): I48.91 - UNSPECIFIED ATRIAL FIBRILLATION Status: Acute Priority: High Current Visit: No - Problem List Review Problem List Initiated/Reviewed/Updated: Yes - My Orders Last 24 Hours: My Active Orders 10/07/20 Dinner Heart Healthy Diet [DIET] 10/07/20 17:53 Oxygen Therapy [RC] PRN Up With Assistance [RC] ASDIRECTED VTE/DVT Education [RC] PER UNIT ROUTINE Vital Signs [RC] Q1H PT Evaluation and Treatment [CONS] Routine Ondansetron [Zofran ODT] 4 mg PO Q4H PRN Resuscitation Status Routine 10/07/20 17:54 Antiembolic Devices [RC] Q12H Sequential Compression Device [OM.PC] Per Unit Routine 10/07/20 18:10 Telemetry Monitoring [Cardiac Monitoring] [RC] Q8H 10/07/20 21:00 Levothyroxine 25 mcg PO BEDTIME Montelukast [Singulair] 10 mg PO BEDTIME Simvastatin [Zocor] 20 mg PO BEDTIME 10/08/20 09:00 Metoprolol Succinate [Toprol XL] 50 mg PO DAILY Pantoprazole [ProTONIX IV] 40 mg Sodium Chloride 0.9% [Normal Saline] 10 ml IV DAILY 10/08/20 14:00 Warfarin Dosing [Coumadin Ask] 1 each PO DAILY@1400 10/09/20 05:11 CBC WITH AUTO DIFF [HEME] AM COMPREHENSIVE METABOLIC PN,CMP [CHEM] AM INR,PT,PROTHROMBIN TIME [COAG] AM 10/10/20 05:11 CBC WITH AUTO DIFF [HEME] AM COMPREHENSIVE METABOLIC PN,CMP [CHEM] AM INR,PT,PROTHROMBIN TIME [COAG] AM 10/11/20 05:11 CBC WITH AUTO DIFF [HEME] AM COMPREHENSIVE METABOLIC PN,CMP [CHEM] AM INR,PT,PROTHROMBIN TIME [COAG] AM 10/12/20 05:11 CBC WITH AUTO DIFF [HEME] AM COMPREHENSIVE METABOLIC PN,CMP [CHEM] AM INR,PT,PROTHROMBIN TIME [COAG] AM - Plan Plan:: 69-year-old gentleman Covid positive without respiratory symptoms was admitted with pneumonia body dementia with significant decline and failure to thrive over the last 5 days. 1. A. fib with RVR: Resolved Was given two IV pushes of Cardizem, converted to A. fib, patient appears stable and asymptomatic, continue to monitor on telemetry, Cardizem as needed, remains on anticoagulation.. Tachypneic and tachycardic, rule out PE, obtain CTA, Continue daily INRs, pharmacy asked for Coumadin dosing, INR today was subtherapeutic 1.3, pharmacy will continue to increase dose with a goal of 2-3. 2. Failure to thrive: Restlessness, anxious, eICU recommendation to try Ativan, neurochecks every 4 hours, social work consult for possible dispo planning to SNF 3. Covid positive: Denies shortness of breath, increased respiratory rate 29, continue to monitor, setting 92% on room air. Low threshold antibiotics therefore started on Levaquin. Will provide supplemental O2 as needed if saturations less than 88%, Tylenol for fevers. CTA pending 4. GABBY: Improved BUN 25 creatinine 1.3, avoid nephrotoxic agents, renally dose antibiotics, continue to hydrate p.o. GI prophylaxis 40 IV pantoprazole daily, SCDs and Coumadin for DVT prophylaxis, Zofran for nausea, heart healthy diet
[2020-10-08] MEDS ORDERED: REMDESIVIR 200 MG in Sodium Chloride 0.9% 250 ML IV ONE (18:29)
[2020-10-08] MEDS: Dexamethasone 4 MG Tab PO SCH (19:00)
[2020-10-08] MEDS: Simvastatin 20 MG Tab PO SCH (20:23)
[2020-10-08] MEDS: Montelukast 10 MG Tab PO SCH (20:23)
[2020-10-08] MEDS: Levothyroxine 25 MCG Tab PO SCH (20:23)
[2020-10-09] MEDS: Sodium Chloride 0.9% 1,000 ML IV SCH ×3 (04:00→17:30)
[2020-10-09 06:05] LABS: BLOOD UREA NITROGEN,BUN 19 mg/dL (7.0-18.0); CARBON DIOXIDE,CO2 23.7 mmol/L (21.0-32.0); CHLORIDE,CL 101 mmol/L (98-107); GLUCOSE RANDOM 127 mg/dL (74-106); POTASSIUM,K 3.9 mmol/L (3.5-5.1); SODIUM,NA 136 mmol/L (136-148)
[2020-10-09] MEDS: Dexamethasone 4 MG Tab PO SCH (10:38)
[2020-10-09] MEDS: Pantoprazole 40 MG in Sodium Chloride 0.9% 10 ML IV SCH (10:38)
[2020-10-09] MEDS: Metoprolol Succinate 25 MG Tab.ER PO SCH (10:39)
[2020-10-09] MEDS: Levofloxacin/Dextrose 5%-Water 750 MG in Premix Bag 1 BAG IV SCH (10:41)
[2020-10-09] MEDS: Acetaminophen 325 MG Tab PO PRN (12:37)
[2020-10-09] MEDS ORDERED: Warfarin 2.5 MG Tab PO SCH (14:00)
--- NOTE | 2020-10-09 14:00 | PN ---
[facility] Physician - Brief Progress [id number]/06/2021 13:42[facility] Charli lantigua, SERJIO - EVESN (CYNDEE) - MONSE DELGADO, MAUREEN+Date of Service 10/09/2020 13:42HPI/ Events of Note Brief eICU NoteEMR reviewed.Patient seen on camera: older male sitting up in bed on RA in NAD36.3 101 109/64 20 92%Chest CTA neg for PE. Bilateral GG opacities more so in dependent areas .Recommend:Consider aspiration, bedside swallow eval if not already done.Consider IS.Please contact u s if we may be of assistance.Interventions Major-Other: COVID
--- NOTE | 2020-10-09 14:49 | PCM.PN ---
- General Info Date of Service: 10/09/20 Admission Dx/Problem (Free Text): Admission Diagnosis/Problem Admission Diagnosis/Problem Weakness Subjective Update: 69-year-old male with history of Lewy body dementia recently was diagnosed with Covid respiratory symptoms but have not found to have significant decline with failure to thrive. He remains on room air resting comfortably this morning, was alert and oriented x2, unable to identify which month. Patient did not appear short of breath, in any acute distress or have any leg swelling or pain. Patient is lucid, expressed his desire to be DNR/DNI which i discussed with the nephew as well who is in agreement. Not keen on going to [place]. - Review of Systems General: Reports: Weakness, Fatigue. Denies: Fever Pulmonary: Denies: Shortness of Breath Cardiovascular: Denies: Chest Pain, Palpitations Gastrointestinal: Denies: Abdominal Pain, Constipation, Decreased Appetite Genitourinary: Denies: Dysuria, Frequency, Burning Musculoskeletal: Denies: Neck Pain, Shoulder Pain, Arm Pain Skin: Denies: Cyanosis, Jaundice, Mottled - Patient Data Vitals - Most Recent: Last Vital Signs Temp 36.3 C 10/09/20 09:00 Pulse 91 10/09/20 10:39 Resp 20 10/09/20 09:00 BP 109/64 10/09/20 10:39 Pulse Ox 92 L 10/09/20 09:00 Weight - Most Recent: 80.018 kg I&O - Last 24 Hours: Intake & Output 10/08/20 10/09/20 10/09/20 22:59 06:59 14:59 Intake Total 2384 420 Balance 2384 420 Lab Results Last 24 Hours: Laboratory Results - last 24 hr 10/09/20 10/09/20 10/09/20 Range/Units 05:32 05:32 05:32 WBC 2.46 L (4.0-11.0) K/uL RBC 2.74 L (4.50-5.90) M/uL Hgb 9.8 L (13.0-17.0) g/dL Hct 28.2 L (38.0-50.0) % MCV 102.9 H (80.0-98.0) fL MCH 35.8 H (27.0-32.0) pg MCHC 34.8 (31.0-37.0) g/dL RDW Std Deviation 49.5 (28.0-62.0) fl RDW Coeff of Dano 13 (11.0-15.0) % Plt Count 128 L (150-400) K/uL MPV 9.70 (7.40-12.00) fL Add Manual Diff YES Neutrophils % (Manual) 69 (48.0-80.0) % Band Neutrophils % 22 % Lymphocytes % (Manual) 8 L (16.0-40.0) % Monocytes % (Manual) 1 (0.0-15.0) % Nucleated RBC % 0.0 /100WBC Absolute Seg Neuts 1.7 (1.4-5.7) Band Neutrophils # 0.5 Lymphocytes # (Manual) 0.2 L (0.6-2.4) Monocytes # (Manual) 0.0 (0.0-0.8) Nucleated RBCs # 0 K/uL INR 2.29 Sodium 136 (136-148) mmol/L Potassium 3.9 (3.5-5.1) mmol/L Chloride 101 (98-107) mmol/L Carbon Dioxide 23.7 (21.0-32.0) mmol/L BUN 19 H (7.0-18.0) mg/dL Creatinine 1.1 (0.8-1.3) mg/dL Est Cr Clr Drug Dosing 73.65 mL/min Estimated GFR (MDRD) > 60.0 ml/min Glucose 127 H (74-106) mg/dL Calcium 8.3 L (8.5-10.1) mg/dL Total Bilirubin 0.9 (0.2-1.0) mg/dL AST 36 (15-37) IU/L ALT 28 (14-63) IU/L Alkaline Phosphatase 41 L (46-116) U/L Total Protein 6.1 L (6.4-8.2) g/dL Albumin 2.2 L (3.4-5.0) g/dL Globulin 3.9 (2.6-4.0) g/dL Albumin/Globulin Ratio 0.6 L (0.9-1.6) Yony Results Last 24 Hours: Microbiology 10/07/20 14:08 Urine Culture - Final Urine, Voided MIXED SIDDHARTHA 1,000-10,000 CFU/ML 10/08/20 02:12 Aerobic Blood Culture - Preliminary Blood - Venous - Lab Draw NO GROWTH AFTER 1 DAY Anaerobic Blood Culture - Preliminary NO GROWTH AFTER 1 DAY 10/08/20 02:07 Aerobic Blood Culture - Preliminary Blood - Venous NO GROWTH AFTER 1 DAY Anaerobic Blood Culture - Preliminary NO GROWTH AFTER 1 DAY Med Orders - Current: Current Medications Acetaminophen (Tylenol) 650 mg PO Q6H PRN PRN Reason: fever/pain Last Admin: 10/09/20 12:37 Dose: 650 mg Documented by: Atenolol (Tenormin) 50 mg PO DAILY [facility] Dexamethasone (Dexamethasone) 6 mg PO DAILY [facility] Stop: 10/18/20 18:31 Last Admin: 10/09/20 10:38 Dose: 6 mg Documented by: Diltiazem HCl (Diltiazem) 10 mg IVPUSH Q3H PRN PRN Reason: HR above 110 Last Admin: 10/08/20 20:33 Dose: 10 mg Documented by: Pantoprazole Sodium 40 mg/ (Sodium Chloride) 10 mls @ 300 mls/hr IV DAILY [facility] Last Admin: 10/09/20 10:38 Dose: 300 mls/hr Documented by: Sodium Chloride (Normal Saline) 1,000 mls @ 150 mls/hr IV ASDIRECTED [facility] Last Admin: 10/09/20 10:42 Dose: 150 mls/hr Documented by: Levofloxacin/Dextrose 750 mg/ (Premix) 150 mls @ 100 mls/hr IV Q24H [facility] Last Admin: 10/09/20 10:41 Dose: 100 mls/hr Documented by: Remdesivir 100 mg/ Sodium (Chloride) 100 mls @ 100 mls/hr IV Q24H [facility] Stop: 10/12/20 19:29 Levothyroxine Sodium (Levothyroxine) 25 mcg PO BEDTIME [facility] Last Admin: 10/08/20 20:23 Dose: 25 mcg Documented by: Metoprolol Succinate (Toprol Xl) 50 mg PO DAILY [facility] Last Admin: 10/09/20 10:39 Dose: 50 mg Documented by: Montelukast Sodium (Singulair) 10 mg PO BEDTIME [facility] Last Admin: 10/08/20 20:23 Dose: 10 mg Documented by: Ondansetron HCl (Zofran Odt) 4 mg PO Q4H PRN PRN Reason: nausea, able to take PO Rivastigmine 3 Mg 1 each PO BID [facility] Simvastatin (Zocor) 20 mg PO BEDTIME [facility] Last Admin: 10/08/20 20:23 Dose: 20 mg Documented by: Warfarin Sodium (Coumadin Ask) 1 each PO DAILY@1400 [facility] Last Admin: 10/08/20 16:30 Dose: Not Given Documented by: Warfarin Sodium (Coumadin) 1 mg PO 10/09/20@1400 [facility] Stop: 10/09/20 16:00 Discontinued Medications Digoxin (Lanoxin) 250 mcg IVPUSH ONETIME ONE Stop: 10/07/20 22:51 Last Admin: 10/08/20 00:31 Dose: 250 mcg Documented by: Diltiazem HCl (Diltiazem) 10 mg IVPUSH ONETIME ONE Stop: 10/07/20 21:32 Last Admin: 10/07/20 22:10 Dose: 10 mg Documented by: Diltiazem HCl (Diltiazem) 10 mg IVPUSH ONETIME ONE Stop: 10/07/20 22:51 Last Admin: 10/07/20 23:12 Dose: 10 mg Documented by: Sodium Chloride (Normal Saline) 1,000 mls @ 999 mls/hr IV .BOLUS ONE Stop: 10/07/20 14:51 Last Admin: 10/07/20 14:12 Dose: 999 mls/hr Documented by: Sodium Chloride (Normal Saline) 1,000 mls @ 125 mls/hr IV ASDIRECTED [facility] Sodium Chloride (Normal Saline) 1,000 mls @ 150 mls/hr IV ASDIRECTED ONE Stop: 10/08/20 01:09 Last Admin: 10/07/20 18:43 Dose: 125 mls/hr Documented by: Remdesivir 200 mg/ Sodium (Chloride) 250 mls @ 250 mls/hr IV ONETIME ONE Stop: 10/08/20 18:30 Last Admin: 10/08/20 20:50 Dose: 250 mls/hr Documented by: Iopamidol (Isovue Multipack-370 (76%)) 80 ml IVPUSH ONETIME STA Stop: 10/08/20 15:33 Last Admin: 10/08/20 15:33 Dose: 80 ml Documented by: Lorazepam (Ativan) 1 mg IVPUSH ONETIME ONE Stop: 10/07/20 23:20 Last Admin: 10/07/20 23:38 Dose: 1 mg Documented by: Lorazepam (Ativan) 0.5 mg IVPUSH ONETIME ONE Stop: 10/08/20 03:23 Last Admin: 10/08/20 16:27 Dose: Not Given Documented by: Ondansetron HCl (Zofran) 4 mg IVPUSH ONETIME ONE Stop: 10/07/20 14:23 Last Admin: 10/07/20 14:50 Dose: 4 mg Documented by: Warfarin Sodium (Coumadin) 5 mg PO 10/08/20@0930 [facility] Stop: 10/08/20 09:31 Last Admin: 10/08/20 10:40 Dose: 5 mg Documented by: - Exam Quality Assessment: Supplemental Oxygen General: Alert, Oriented Lungs: Clear to Auscultation, Normal Respiratory Effort Cardiovascular: Regular Rate, Regular Rhythm GI/Abdominal Exam: Normal Bowel Sounds, Soft, Non-Tender Back Exam: Normal Inspection, Full Range of Motion Extremities: Normal Inspection, Normal Range of Motion Sepsis Event Note - Evaluation Sepsis Screening Result: Sepsis Risk - Focused Exam Vital Signs: Vital Signs Temp Pulse Resp BP BP Pulse Ox 10/09/20 10:39 91 109/64 10/09/20 09:00 36.3 C 20 117/55 L 92 L 10/09/20 08:00 22 H 114/57 L 92 L 10/09/20 07:00 36.8 C 28 H 104/56 L 94 L 10/09/20 06:00 36.8 C 22 H 114/60 93 L 10/09/20 05:00 36.6 C 24 H 119/58 L 92 L 10/09/20 04:00 36.6 C 24 H 116/66 93 L 10/09/20 03:00 32 H 110/64 92 L - Problem List Review Problem List Initiated/Reviewed/Updated: Yes - My Orders Last 24 Hours: My Active Orders 10/09/20 13:48 Resuscitation Status Routine 10/09/20 13:49 atenoloL [Tenormin] 50 mg PO DAILY 10/09/20 14:00 Patient's Own Medication [Ptom] 1 each PO BID 10/09/20 14:40 Consult to Speech Language Pathology [[employer]ING [employer]ING [employer]ER Evaluation and Treatment] [CONS] Routine 10/09/20 14:43 IS (RT) [RT Incentive Spirometry] [RC] Q2HWA 10/10/20 05:11 MAGNESIUM [CHEM] AM PHOSPHORUS [CHEM] AM 10/11/20 05:11 MAGNESIUM [CHEM] AM PHOSPHORUS [CHEM] AM 10/12/20 05:11 MAGNESIUM [CHEM] AM PHOSPHORUS [CHEM] AM - Plan Plan:: 69-year-old gentleman Covid positive without respiratory symptoms was admitted with pneumonia body dementia with significant decline and failure to thrive over the last 5 days. 1. A. fib with RVR: Resolved Was given two IV pushes of Cardizem, converted to A. fib, patient appears stable and asymptomatic, continue to monitor on telemetry, Cardizem as needed, remains on anticoagulation.. CTA noted Continue daily INRs, pharmacy asked for Coumadin dosing, INR today was subtherapeutic 1.3, pharmacy will continue to increase dose with a goal of 2-3. 2. Failure to thrive: is eating better, PT consulted, will monitor for improvement, may need SNF although patient not keen 3. Covid positive: Denies shortness of breath, increased respiratory rate 29, continue to monitor, setting 92% on room air. cont Levaquin for PNA, cont remdesivir, cont dexamethasone. Will provide supplemental O2 as needed if saturations less than 88%, Tylenol for fevers. 4. GABBY: Improved BUN 25 creatinine 1.3, avoid nephrotoxic agents, renally dose antibiotics, continue to hydrate p.o. GI prophylaxis 40 IV pantoprazole daily, SCDs and Coumadin for DVT prophylaxis, Zofran for nausea, heart healthy diet
[2020-10-09] MEDS: Atenolol 50 MG Tab PO SCH (15:26)
[2020-10-09] MEDS: RIVASTIGMINE 3 MG PO SCH ×2 (15:46→20:45)
[2020-10-09] MEDS ORDERED: REMDESIVIR 100 MG in Sodium Chloride 0.9% 100 ML IV SCH (18:30)
[2020-10-09] MEDS: Simvastatin 20 MG Tab PO SCH (20:26)
[2020-10-09] MEDS: Levothyroxine 25 MCG Tab PO SCH (20:26)
[2020-10-09] MEDS: REMDESIVIR 100 MG in Sodium Chloride 0.9% 100 ML IV SCH (20:27)
[2020-10-09] MEDS: Montelukast 10 MG Tab PO SCH (20:27)
[2020-10-10] MEDS: Sodium Chloride 0.9% 1,000 ML IV SCH ×2 (01:21→21:02)
[2020-10-10 05:34] LABS: BLOOD UREA NITROGEN,BUN 24 mg/dL (7.0-18.0); CARBON DIOXIDE,CO2 21.8 mmol/L (21.0-32.0); CHLORIDE,CL 102 mmol/L (98-107); GLUCOSE RANDOM 131 mg/dL (74-106); POTASSIUM,K 3.5 mmol/L (3.5-5.1); SODIUM,NA 137 mmol/L (136-148)
--- NOTE | 2020-10-10 05:47 | PN ---
[facility] Physician - Brief Progress [id number]/07/2021 05:46[facility] Charli lantigua, SERJIO - [place] (CYNDEE) - MONSE DELGADO COVID+Date of Service 10/10/2020 05:46HPI/ Events of Note Phosphorous and magnesium replacement ordered IVInterventions Major-Hypoxemia - evalua tion and management, Respiratory failure - evaluation and managementIntermediate-Electrolyte abnormal ity - evaluation and management
[2020-10-10] MEDS ORDERED: Magnesium Sulfate/Water 2 GM/50 ML BAG IV ONE (06:02)
[2020-10-10] MEDS ORDERED: Potassium Phosphates 30 MMOLE in Sodium Chloride 0.9% 500 ML IV ONE ×2 (07:00→08:00)
[2020-10-10] MEDS: Dexamethasone 4 MG Tab PO SCH (08:24)
[2020-10-10] MEDS: Pantoprazole 40 MG in Sodium Chloride 0.9% 10 ML IV SCH (08:25)
[2020-10-10] MEDS: Atenolol 50 MG Tab PO SCH (08:25)
[2020-10-10] MEDS: RIVASTIGMINE 3 MG PO SCH ×2 (11:33→22:17)
[2020-10-10] MEDS: Levofloxacin/Dextrose 5%-Water 750 MG in Premix Bag 1 BAG IV SCH ×2 (12:47→12:57)
[2020-10-10] MEDS: Diltiazem 120 MG Cap.CD PO SCH (13:15)
[2020-10-10] MEDS: Acetaminophen 325 MG Tab PO PRN (13:16)
--- NOTE | 2020-10-10 13:28 | PCM.PN ---
- General Info Date of Service: 10/10/20 Admission Dx/Problem (Free Text): Admission Diagnosis/Problem Admission Diagnosis/Problem Weakness Subjective Update: 69-year-old male with history of Lewy body dementia recently was diagnosed with Covid respiratory symptoms but have not found to have significant decline with failure to thrive. He remains on room air resting comfortably this morning, was alert and oriented x2, unable to identify which month. Patient did not appear short of breath, in any acute distress or have any leg swelling or pain. - Review of Systems General: Reports: Weakness, Malaise. Denies: Fever, Fatigue Pulmonary: Denies: Shortness of Breath, Pleuritic Chest Pain Cardiovascular: Denies: Chest Pain, Palpitations Gastrointestinal: Denies: Abdominal Pain, Constipation, Decreased Appetite Genitourinary: Denies: Dysuria, Frequency, Burning Musculoskeletal: Denies: Neck Pain, Shoulder Pain, Arm Pain, Hand Pain Skin: Denies: Cyanosis, Jaundice, Mottled Neurological: Reports: Confusion, Tremors, Difficulty Walking. Denies: Dizziness, Headache, Numbness, Paresthesia - Patient Data Vitals - Most Recent: Last Vital Signs Temp 36.5 C 10/10/20 04:00 Pulse 95 10/10/20 08:25 Resp 22 H 10/10/20 04:00 BP 127/77 10/10/20 08:25 Pulse Ox 94 L 10/10/20 04:00 Weight - Most Recent: 79.787 kg I&O - Last 24 Hours: Intake & Output 10/09/20 10/10/20 10/10/20 22:59 06:59 14:59 Intake Total 2700 2840 Output Total 800 1400 Balance 1900 1440 Lab Results Last 24 Hours: Laboratory Results - last 24 hr 10/10/20 10/10/20 10/10/20 Range/Units 05:03 05:03 05:03 WBC 4.32 (4.0-11.0) K/uL RBC 3.02 L (4.50-5.90) M/uL Hgb 10.8 L (13.0-17.0) g/dL Hct 30.4 L (38.0-50.0) % MCV 100.7 H (80.0-98.0) fL MCH 35.8 H (27.0-32.0) pg MCHC 35.5 (31.0-37.0) g/dL RDW Std Deviation 48.9 (28.0-62.0) fl RDW Coeff of Dano 13 (11.0-15.0) % Plt Count 189 (150-400) K/uL MPV 10.00 (7.40-12.00) fL Add Manual Diff YES Neutrophils % (Manual) 74 (48.0-80.0) % Band Neutrophils % 18 % Lymphocytes % (Manual) 6 L (16.0-40.0) % Monocytes % (Manual) 2 (0.0-15.0) % Nucleated RBC % 0.0 /100WBC Absolute Seg Neuts 3.2 (1.4-5.7) Band Neutrophils # 0.8 Lymphocytes # (Manual) 0.3 L (0.6-2.4) Monocytes # (Manual) 0.1 (0.0-0.8) Nucleated RBCs # 0 K/uL INR 2.16 Sodium 137 (136-148) mmol/L Potassium 3.5 (3.5-5.1) mmol/L Chloride 102 (98-107) mmol/L Carbon Dioxide 21.8 (21.0-32.0) mmol/L BUN 24 H (7.0-18.0) mg/dL Creatinine 1.2 (0.8-1.3) mg/dL Est Cr Clr Drug Dosing 67.51 mL/min Estimated GFR (MDRD) > 60.0 ml/min Glucose 131 H (74-106) mg/dL Calcium 8.2 L (8.5-10.1) mg/dL Phosphorus 2.0 L (2.6-4.7) mg/dL Magnesium 1.7 L (1.8-2.4) mg/dL Total Bilirubin 0.6 (0.2-1.0) mg/dL AST 47 H (15-37) IU/L ALT 31 (14-63) IU/L Alkaline Phosphatase 44 L (46-116) U/L Total Protein 6.1 L (6.4-8.2) g/dL Albumin 2.1 L (3.4-5.0) g/dL Globulin 4.0 (2.6-4.0) g/dL Albumin/Globulin Ratio 0.5 L (0.9-1.6) Yony Results Last 24 Hours: Microbiology 10/08/20 02:12 Aerobic Blood Culture - Preliminary Blood - Venous - Lab Draw NO GROWTH AFTER 2 DAYS Anaerobic Blood Culture - Preliminary NO GROWTH AFTER 2 DAYS 10/08/20 02:07 Aerobic Blood Culture - Preliminary Blood - Venous NO GROWTH AFTER 2 DAYS Anaerobic Blood Culture - Preliminary NO GROWTH AFTER 2 DAYS 10/07/20 14:08 Urine Culture - Final Urine, Voided MIXED SIDDHARTHA 1,000-10,000 CFU/ML Med Orders - Current: Current Medications Acetaminophen (Tylenol) 650 mg PO Q6H PRN PRN Reason: fever/pain Last Admin: 10/09/20 12:37 Dose: 650 mg Documented by: Atenolol (Tenormin) 50 mg PO DAILY [facility] Last Admin: 10/10/20 08:25 Dose: 50 mg Documented by: Dexamethasone (Dexamethasone) 6 mg PO DAILY [facility] Stop: 10/18/20 18:31 Last Admin: 10/10/20 08:24 Dose: 6 mg Documented by: Diltiazem HCl (Diltiazem) 10 mg IVPUSH Q3H PRN PRN Reason: HR above 110 Last Admin: 10/08/20 20:33 Dose: 10 mg Documented by: Diltiazem HCl (Cardizem Cd) 120 mg PO DAILY [facility] Pantoprazole Sodium 40 mg/ (Sodium Chloride) 10 mls @ 300 mls/hr IV DAILY [facility] Last Admin: 10/10/20 08:25 Dose: 300 mls/hr Documented by: Sodium Chloride (Normal Saline) 1,000 mls @ 150 mls/hr IV ASDIRECTED [facility] Last Admin: 10/10/20 01:21 Dose: 150 mls/hr Documented by: Remdesivir 100 mg/ Sodium (Chloride) 100 mls @ 100 mls/hr IV Q24H [facility] Stop: 10/12/20 21:59 Last Admin: 10/09/20 20:27 Dose: 100 mls/hr Documented by: Levofloxacin/Dextrose 750 mg/ (Premix) 150 mls @ 100 mls/hr IV Q24H [facility] Last Admin: 10/10/20 12:47 Dose: 100 mls/hr Documented by: Levothyroxine Sodium (Levothyroxine) 25 mcg PO BEDTIME [facility] Last Admin: 10/09/20 20:26 Dose: 25 mcg Documented by: Montelukast Sodium (Singulair) 10 mg PO BEDTIME [facility] Last Admin: 10/09/20 20:27 Dose: 10 mg Documented by: Ondansetron HCl (Zofran Odt) 4 mg PO Q4H PRN PRN Reason: nausea, able to take PO Rivastigmine 3 Mg 1 each PO BID [facility] Last Admin: 10/10/20 11:33 Dose: 1 each Documented by: Simvastatin (Zocor) 20 mg PO BEDTIME [facility] Last Admin: 10/09/20 20:26 Dose: 20 mg Documented by: Warfarin Sodium (Coumadin Ask) 1 each PO DAILY@1400 [facility] Last Admin: 10/09/20 15:28 Dose: Not Given Documented by: Warfarin Sodium (Coumadin) 2.5 mg PO 10/10/20@1400 [facility] Stop: 10/10/20 15:00 Discontinued Medications Digoxin (Lanoxin) 250 mcg IVPUSH ONETIME ONE Stop: 10/07/20 22:51 Last Admin: 10/08/20 00:31 Dose: 250 mcg Documented by: Diltiazem HCl (Diltiazem) 10 mg IVPUSH ONETIME ONE Stop: 10/07/20 21:32 Last Admin: 10/07/20 22:10 Dose: 10 mg Documented by: Diltiazem HCl (Diltiazem) 10 mg IVPUSH ONETIME ONE Stop: 10/07/20 22:51 Last Admin: 10/07/20 23:12 Dose: 10 mg Documented by: Sodium Chloride (Normal Saline) 1,000 mls @ 999 mls/hr IV .BOLUS ONE Stop: 10/07/20 14:51 Last Admin: 10/07/20 14:12 Dose: 999 mls/hr Documented by: Sodium Chloride (Normal Saline) 1,000 mls @ 125 mls/hr IV ASDIRECTED [facility] Sodium Chloride (Normal Saline) 1,000 mls @ 150 mls/hr IV ASDIRECTED ONE Stop: 10/08/20 01:09 Last Admin: 10/07/20 18:43 Dose: 125 mls/hr Documented by: Levofloxacin/Dextrose 750 mg/ (Premix) 150 mls @ 100 mls/hr IV Q24H [facility] Last Admin: 10/10/20 12:57 Dose: Not Given Documented by: Remdesivir 200 mg/ Sodium (Chloride) 250 mls @ 250 mls/hr IV ONETIME ONE Stop: 10/08/20 18:30 Last Admin: 10/08/20 20:50 Dose: 250 mls/hr Documented by: Remdesivir 100 mg/ Sodium (Chloride) 100 mls @ 100 mls/hr IV Q24H [facility] Stop: 10/12/20 19:29 Magnesium Sulfate (Magnesium Sulfate In Water Premix) 2 gm in 50 mls @ 50 mls/hr IV ONETIME ONE Stop: 10/10/20 07:01 Last Admin: 10/10/20 06:37 Dose: 50 mls/hr Documented by: Potassium Phosphate 30 mmole/ (Sodium Chloride) 510 mls @ 127.5 mls/hr IV ONETIME ONE Stop: 10/10/20 11:59 Last Admin: 10/10/20 08:06 Dose: 127.5 mls/hr Documented by: Iopamidol (Isovue Multipack-370 (76%)) 80 ml IVPUSH ONETIME STA Stop: 10/08/20 15:33 Last Admin: 10/08/20 15:33 Dose: 80 ml Documented by: Lorazepam (Ativan) 1 mg IVPUSH ONETIME ONE Stop: 10/07/20 23:20 Last Admin: 10/07/20 23:38 Dose: 1 mg Documented by: Lorazepam (Ativan) 0.5 mg IVPUSH ONETIME ONE Stop: 10/08/20 03:23 Last Admin: 10/08/20 16:27 Dose: Not Given Documented by: Metoprolol Succinate (Toprol Xl) 50 mg PO DAILY [facility] Last Admin: 10/09/20 10:39 Dose: 50 mg Documented by: Ondansetron HCl (Zofran) 4 mg IVPUSH ONETIME ONE Stop: 10/07/20 14:23 Last Admin: 10/07/20 14:50 Dose: 4 mg Documented by: Warfarin Sodium (Coumadin) 5 mg PO 10/08/20@0930 [facility] Stop: 10/08/20 09:31 Last Admin: 10/08/20 10:40 Dose: 5 mg Documented by: Warfarin Sodium (Coumadin) 1 mg PO 10/09/20@1400 [facility] Stop: 10/09/20 16:00 Last Admin: 10/09/20 15:26 Dose: 1 mg Documented by: - Exam Quality Assessment: No: Supplemental Oxygen General: Alert, Oriented Lungs: Clear to Auscultation, Normal Respiratory Effort Cardiovascular: Regular Rate, Regular Rhythm, No Murmurs GI/Abdominal Exam: Normal Bowel Sounds, Soft, Non-Tender Back Exam: Normal Inspection Extremities: Normal Inspection Sepsis Event Note - Evaluation Sepsis Screening Result: Sepsis Risk - Focused Exam Vital Signs: Vital Signs Temp Pulse Resp BP BP Pulse Ox 10/10/20 08:25 95 127/77 10/10/20 04:00 36.5 C 22 H 119/75 94 L - Problem List & Annotations (1) Lewy body dementia SNOMED Code(s): 049884891 Code(s): G31.83 - DEMENTIA WITH LEWY BODIES; F02.80 - DEMENTIA IN OTH DISEASES CLASSD ELSWHR W/O BEHAVRL DISTURB Status: Acute Current Visit: Yes (2) COVID-19 SNOMED Code(s): 772925631 Code(s): U07.1 - COVID-19 Status: Acute Current Visit: Yes (3) Atrial fibrillation with RVR SNOMED Code(s): 286259707803806 Code(s): I48.91 - UNSPECIFIED ATRIAL FIBRILLATION Status: Acute Priority: High Current Visit: No (4) Anticoagulant long-term use SNOMED Code(s): 479484488 Code(s): Z79.01 - PRISON (CURRENT) USE OF ANTICOAGULANTS Status: Chronic Current Visit: No (5) Fibrillation, atrial SNOMED Code(s): 47863914 Code(s): I48.91 - UNSPECIFIED ATRIAL FIBRILLATION Status: Chronic Priority: High Current Visit: No Qualifiers: Atrial fibrillation type: chronic (6) Hypercholesteremia SNOMED Code(s): 70748885 Code(s): E78.0 - PURE HYPERCHOLESTEROLEMIA * DO NOT USE * Status: Chronic Current Visit: No (7) Hypothyroid SNOMED Code(s): 15132210 Code(s): E03.9 - HYPOTHYROIDISM, UNSPECIFIED Status: Chronic Current Visit: No Qualifiers: Hypothyroidism type: unspecified Qualified Code(s): E03.9 - Hypothyroidism, unspecified - Problem List Review Problem List Initiated/Reviewed/Updated: Yes - My Orders Last 24 Hours: My Active Orders 10/09/20 13:48 Resuscitation Status Routine 10/09/20 13:49 atenoloL [Tenormin] 50 mg PO DAILY 10/09/20 14:00 Patient's Own Medication [Ptom] 1 each PO BID 10/09/20 14:40 Consult to Speech Language Pathology [MANAGER FUND Evaluation and Treatment] [CONS] Routine 10/09/20 14:43 IS (RT) [RT Incentive Spirometry] [RC] Q2HWA 10/10/20 12:45 Diltiazem [Cardizem CD] 120 mg PO DAILY 10/11/20 05:11 MAGNESIUM [CHEM] AM PHOSPHORUS [CHEM] AM 10/12/20 05:11 MAGNESIUM [CHEM] AM PHOSPHORUS [CHEM] AM - Plan Plan:: 69-year-old gentleman Covid positive without respiratory symptoms was admitted with pneumonia body dementia with significant decline and failure to thrive over the last 5 days. 1. A. fib with RVR: Resolved patient appears stable and asymptomatic, continue to monitor on telemetry, Cardizem as needed, remains on anticoagulation., start PO Cardizem, stop metoprolol as patient is on atenolol CTA noted Continue daily INRs, pharmacy asked for Coumadin dosing, INR today was subtherapeutic 1.3, pharmacy will continue to increase dose with a goal of 2-3. 2. Failure to thrive: is eating better, PT consulted, will monitor for improvement, may need SNF 3. Covid positive: Denies shortness of breath, increased respiratory rate 29, continue to monitor, setting 92- 93% on room air. cont Levaquin for PNA, cont remdesivir, cont dexamethasone. oxygen as needed to keep o2>92 %, Tylenol for fevers. 4. GABBY: resolved, avoid nephrotoxic agents, renally dose antibiotics, continue to hydrate p.o. 5. Hypophosphatemia, Hypomagnesemia: repleted, recheck in AM GI prophylaxis 40 IV pantoprazole daily, SCDs and Coumadin for DVT prophylaxis, Zofran for nausea, heart healthy diet
[2020-10-10] MEDS ORDERED: Warfarin 2.5 MG Tab PO SCH (14:00)
[2020-10-10] MEDS: REMDESIVIR 100 MG in Sodium Chloride 0.9% 100 ML IV SCH (20:57)
[2020-10-10] MEDS: Simvastatin 20 MG Tab PO SCH (20:58)
[2020-10-10] MEDS: Montelukast 10 MG Tab PO SCH (20:58)
[2020-10-10] MEDS: LORazepam 2 MG/ML SDV IVPUSH PRN (20:58)
[2020-10-10] MEDS: Levothyroxine 25 MCG Tab PO SCH (20:58)
[2020-10-10] MEDS ORDERED: Haloperidol Lactate 5 MG/ML SDV IM ONE (21:43)
[2020-10-10] MEDS ORDERED: LORazepam 2 MG/ML SDV IVPUSH ONE (21:44)
[2020-10-11] MEDS: Sodium Chloride 0.9% 1,000 ML IV SCH ×3 (03:57→21:01)
[2020-10-11 06:15] LABS: BLOOD UREA NITROGEN,BUN 22 mg/dL (7.0-18.0); CARBON DIOXIDE,CO2 20.6 mmol/L (21.0-32.0); CHLORIDE,CL 106 mmol/L (98-107); GLUCOSE RANDOM 133 mg/dL (74-106); POTASSIUM,K 3.8 mmol/L (3.5-5.1); SODIUM,NA 138 mmol/L (136-148)
[2020-10-11] MEDS ORDERED: Magnesium Sulfate/Water 2 GM/50 ML BAG IV ONE (08:13)
[2020-10-11] MEDS: Pantoprazole 40 MG in Sodium Chloride 0.9% 10 ML IV SCH (09:18)
[2020-10-11] MEDS: Atenolol 50 MG Tab PO SCH (10:24)
[2020-10-11] MEDS: Diltiazem 120 MG Cap.CD PO SCH (10:24)
[2020-10-11] MEDS: Dexamethasone 4 MG Tab PO SCH (10:24)
[2020-10-11] MEDS: RIVASTIGMINE 3 MG PO SCH ×2 (10:31→21:18)
--- NOTE | 2020-10-11 11:53 | PCM.PN ---
- General Info Date of Service: 10/11/20 Admission Dx/Problem (Free Text): Admission Diagnosis/Problem Admission Diagnosis/Problem Weakness Subjective Update: 69-year-old male with history of Lewy body dementia recently was diagnosed with Covid respiratory symptoms but have not found to have significant decline with failure to thrive. This AM patient was in mild distress, looked tremulous, didnt answer many questions. sating 92% on RA. Overnight was anxious so had to give some Ativan and Haldol - Review of Systems General: Reports: Weakness, Fatigue. Denies: Fever Cardiovascular: Denies: Chest Pain, Palpitations Gastrointestinal: Denies: Abdominal Pain, Constipation Genitourinary: Denies: Dysuria, Frequency Musculoskeletal: Denies: Neck Pain, Shoulder Pain, Arm Pain Skin: Denies: Cyanosis Neurological: Reports: Confusion, Tremors, Trouble Speaking, Difficulty Walking, Weakness Psychiatric: Reports: Mood Lability, Anxiety - Patient Data Vitals - Most Recent: Last Vital Signs Temp 36.8 C 10/11/20 10:21 Pulse 100 10/11/20 10:24 Resp 20 10/11/20 10:21 BP 136/85 10/11/20 10:24 Pulse Ox 88 L 10/11/20 10:21 Weight - Most Recent: 79.787 kg I&O - Last 24 Hours: Intake & Output 10/10/20 10/11/20 10/11/20 22:59 06:59 14:59 Intake Total 3585 2525 Output Total 300 Balance 3285 2525 Lab Results Last 24 Hours: Laboratory Results - last 24 hr 10/11/20 10/11/20 10/11/20 Range/Units 05:45 05:45 05:45 WBC 4.92 (4.0-11.0) K/uL RBC 2.76 L (4.50-5.90) M/uL Hgb 10.0 L (13.0-17.0) g/dL Hct 27.9 L (38.0-50.0) % MCV 101.1 H (80.0-98.0) fL MCH 36.2 H (27.0-32.0) pg MCHC 35.8 (31.0-37.0) g/dL RDW Std Deviation 49.3 (28.0-62.0) fl RDW Coeff of Dano 14 (11.0-15.0) % Plt Count 212 (150-400) K/uL MPV 10.00 (7.40-12.00) fL Neut % (Auto) 93.3 H (48.0-80.0) % Lymph % (Auto) 6.3 L (16.0-40.0) % [place] % (Auto) 0.2 (0.0-15.0) % Eos % (Auto) 0.0 (0.0-7.0) % Baso % (Auto) 0.2 (0.0-1.5) % Neut # (Auto) 4.6 (1.4-5.7) K/uL Lymph # (Auto) 0.3 L (0.6-2.4) K/uL [place] # (Auto) 0.0 (0.0-0.8) K/uL Eos # (Auto) 0.0 (0.0-0.7) K/uL Baso # (Auto) 0.0 (0.0-0.1) K/uL Nucleated RBC % 0.0 /100WBC Nucleated RBCs # 0 K/uL INR 3.29 Sodium 138 (136-148) mmol/L Potassium 3.8 (3.5-5.1) mmol/L Chloride 106 (98-107) mmol/L Carbon Dioxide 20.6 L (21.0-32.0) mmol/L BUN 22 H (7.0-18.0) mg/dL Creatinine 1.0 (0.8-1.3) mg/dL Est Cr Clr Drug Dosing 80.90 mL/min Estimated GFR (MDRD) > 60.0 ml/min Glucose 133 H (74-106) mg/dL Calcium 8.0 L (8.5-10.1) mg/dL Phosphorus 2.3 L (2.6-4.7) mg/dL Magnesium 1.7 L (1.8-2.4) mg/dL Total Bilirubin 0.5 (0.2-1.0) mg/dL AST 58 H (15-37) IU/L ALT 39 (14-63) IU/L Alkaline Phosphatase 41 L (46-116) U/L Total Protein 5.9 L (6.4-8.2) g/dL Albumin 2.2 L (3.4-5.0) g/dL Globulin 3.7 (2.6-4.0) g/dL Albumin/Globulin Ratio 0.6 L (0.9-1.6) Yony Results Last 24 Hours: Microbiology 10/08/20 02:12 Aerobic Blood Culture - Preliminary Blood - Venous - Lab Draw NO GROWTH AFTER 3 DAYS Anaerobic Blood Culture - Preliminary NO GROWTH AFTER 3 DAYS 10/08/20 02:07 Aerobic Blood Culture - Preliminary Blood - Venous NO GROWTH AFTER 3 DAYS Anaerobic Blood Culture - Preliminary NO GROWTH AFTER 3 DAYS Med Orders - Current: Current Medications Acetaminophen (Tylenol) 650 mg PO Q6H PRN PRN Reason: fever/pain Last Admin: 10/10/20 13:16 Dose: 650 mg Documented by: Atenolol (Tenormin) 50 mg PO DAILY [facility] Last Admin: 10/11/20 10:24 Dose: 50 mg Documented by: Dexamethasone (Dexamethasone) 6 mg PO DAILY [facility] Stop: 10/18/20 18:31 Last Admin: 10/11/20 10:24 Dose: 6 mg Documented by: Diltiazem HCl (Diltiazem) 10 mg IVPUSH Q3H PRN PRN Reason: HR above 110 Last Admin: 10/08/20 20:33 Dose: 10 mg Documented by: Diltiazem HCl (Cardizem Cd) 120 mg PO DAILY [facility] Last Admin: 10/11/20 10:24 Dose: 120 mg Documented by: Pantoprazole Sodium 40 mg/ (Sodium Chloride) 10 mls @ 300 mls/hr IV DAILY [facility] Last Admin: 10/11/20 09:18 Dose: 300 mls/hr Documented by: Remdesivir 100 mg/ Sodium (Chloride) 100 mls @ 100 mls/hr IV Q24H [facility] Stop: 10/12/20 21:59 Last Admin: 10/10/20 20:57 Dose: 100 mls/hr Documented by: Levofloxacin/Dextrose 750 mg/ (Premix) 150 mls @ 100 mls/hr IV Q24H [facility] Last Admin: 10/10/20 12:47 Dose: 100 mls/hr Documented by: Sodium Chloride (Normal Saline) 1,000 mls @ 100 mls/hr IV Q10H [facility] Levothyroxine Sodium (Levothyroxine) 25 mcg PO BEDTIME [facility] Last Admin: 10/10/20 20:58 Dose: 25 mcg Documented by: Lorazepam (Ativan) 2 mg IVPUSH Q6H PRN PRN Reason: Agitation Last Admin: 10/10/20 20:58 Dose: 2 mg Documented by: Montelukast Sodium (Singulair) 10 mg PO BEDTIME [facility] Last Admin: 10/10/20 20:58 Dose: 10 mg Documented by: Ondansetron HCl (Zofran Odt) 4 mg PO Q4H PRN PRN Reason: nausea, able to take PO Rivastigmine 3 Mg 1 each PO BID [facility] Last Admin: 10/11/20 10:31 Dose: 1 each Documented by: Quetiapine Fumarate (Seroquel) 25 mg PO BEDTIME [facility] Simvastatin (Zocor) 20 mg PO BEDTIME [facility] Last Admin: 10/10/20 20:58 Dose: 20 mg Documented by: Sodium Phosphate (Neutra-Phos) 250 mg PO QID [facility] Warfarin Sodium (Coumadin Ask) 1 each PO DAILY@1400 [facility] Last Admin: 10/10/20 13:24 Dose: Not Given Documented by: Warfarin Sodium (Coumadin) 1 mg PO 10/11/20@1400 [facility] Stop: 10/11/20 16:00 Discontinued Medications Digoxin (Lanoxin) 250 mcg IVPUSH ONETIME ONE Stop: 10/07/20 22:51 Last Admin: 10/08/20 00:31 Dose: 250 mcg Documented by: Diltiazem HCl (Diltiazem) 10 mg IVPUSH ONETIME ONE Stop: 10/07/20 21:32 Last Admin: 10/07/20 22:10 Dose: 10 mg Documented by: Diltiazem HCl (Diltiazem) 10 mg IVPUSH ONETIME ONE Stop: 10/07/20 22:51 Last Admin: 10/07/20 23:12 Dose: 10 mg Documented by: Haloperidol Lactate (Haldol) 2 mg IM ONETIME ONE Stop: 10/10/20 21:44 Last Admin: 10/10/20 22:16 Dose: 2 mg Documented by: Sodium Chloride (Normal Saline) 1,000 mls @ 999 mls/hr IV .BOLUS ONE Stop: 10/07/20 14:51 Last Admin: 10/07/20 14:12 Dose: 999 mls/hr Documented by: Sodium Chloride (Normal Saline) 1,000 mls @ 125 mls/hr IV ASDIRECTED [facility] Sodium Chloride (Normal Saline) 1,000 mls @ 150 mls/hr IV ASDIRECTED ONE Stop: 10/08/20 01:09 Last Admin: 10/07/20 18:43 Dose: 125 mls/hr Documented by: Sodium Chloride (Normal Saline) 1,000 mls @ 150 mls/hr IV ASDIRECTED [facility] Last Admin: 10/11/20 03:57 Dose: 150 mls/hr Documented by: Levofloxacin/Dextrose 750 mg/ (Premix) 150 mls @ 100 mls/hr IV Q24H [facility] Last Admin: 10/10/20 12:57 Dose: Not Given Documented by: Remdesivir 200 mg/ Sodium (Chloride) 250 mls @ 250 mls/hr IV ONETIME ONE Stop: 10/08/20 18:30 Last Admin: 10/08/20 20:50 Dose: 250 mls/hr Documented by: Remdesivir 100 mg/ Sodium (Chloride) 100 mls @ 100 mls/hr IV Q24H [facility] Stop: 10/12/20 19:29 Magnesium Sulfate (Magnesium Sulfate In Water Premix) 2 gm in 50 mls @ 50 mls/hr IV ONETIME ONE Stop: 10/10/20 07:01 Last Admin: 10/10/20 06:37 Dose: 50 mls/hr Documented by: Potassium Phosphate 30 mmole/ (Sodium Chloride) 510 mls @ 127.5 mls/hr IV ONETIME ONE Stop: 10/10/20 11:59 Last Admin: 10/10/20 08:06 Dose: 127.5 mls/hr Documented by: Magnesium Sulfate (Magnesium Sulfate In Water Premix) 2 gm in 50 mls @ 50 mls/hr IV ONETIME ONE Stop: 10/11/20 09:12 Last Admin: 10/11/20 09:16 Dose: 50 mls/hr Documented by: Iopamidol (Isovue Multipack-370 (76%)) 80 ml IVPUSH ONETIME STA Stop: 10/08/20 15:33 Last Admin: 10/08/20 15:33 Dose: 80 ml Documented by: Lorazepam (Ativan) 1 mg IVPUSH ONETIME ONE Stop: 10/07/20 23:20 Last Admin: 10/07/20 23:38 Dose: 1 mg Documented by: Lorazepam (Ativan) 0.5 mg IVPUSH ONETIME ONE Stop: 10/08/20 03:23 Last Admin: 10/08/20 16:27 Dose: Not Given Documented by: Lorazepam (Ativan) 1 mg IVPUSH ONETIME ONE Stop: 10/10/20 21:45 Last Admin: 10/10/20 22:16 Dose: 1 mg Documented by: Metoprolol Succinate (Toprol Xl) 50 mg PO DAILY [facility] Last Admin: 10/09/20 10:39 Dose: 50 mg Documented by: Ondansetron HCl (Zofran) 4 mg IVPUSH ONETIME ONE Stop: 10/07/20 14:23 Last Admin: 10/07/20 14:50 Dose: 4 mg Documented by: Warfarin Sodium (Coumadin) 5 mg PO 10/08/20@0930 [facility] Stop: 10/08/20 09:31 Last Admin: 10/08/20 10:40 Dose: 5 mg Documented by: Warfarin Sodium (Coumadin) 1 mg PO 10/09/20@1400 [facility] Stop: 10/09/20 16:00 Last Admin: 10/09/20 15:26 Dose: 1 mg Documented by: Warfarin Sodium (Coumadin) 2.5 mg PO 10/10/20@1400 [facility] Stop: 10/10/20 15:00 Last Admin: 10/10/20 13:22 Dose: 2.5 mg Documented by: - Exam General: Mild Distress. No: Alert, Oriented, Sedated, Lethargic, Obtunded Neck: Supple Lungs: Clear to Auscultation. No: Crackles, Rales Cardiovascular: Regular Rate, Regular Rhythm GI/Abdominal Exam: Normal Bowel Sounds, Soft Extremities: Normal Range of Motion Neurological: Reflexes Equal Bilateral, Sensation Intact. No: Normal Gait, Normal Speech Psy/Mental Status: Anxious. No: Alert, Normal Affect, Normal Mood, Withdrawal Symptoms Sepsis Event Note - Evaluation Sepsis Screening Result: Sepsis Risk - Focused Exam Vital Signs: Vital Signs Temp Pulse Pulse Resp BP BP Pulse Ox 10/11/20 10:24 100 136/85 10/11/20 10:21 36.8 C 100 20 136/85 88 L 10/11/20 03:54 36.7 C 94 20 117/81 91 L 10/11/20 00:42 36.4 C 22 H 140/79 92 L - Problem List & Annotations (1) Lewy body dementia SNOMED Code(s): 764123750 Code(s): G31.83 - DEMENTIA WITH LEWY BODIES; F02.80 - DEMENTIA IN OTH DISEASES CLASSD ELSWHR W/O BEHAVRL DISTURB Status: Acute Current Visit: Yes (2) COVID-19 SNOMED Code(s): 240604195 Code(s): U07.1 - COVID-19 Status: Acute Current Visit: Yes (3) Atrial fibrillation with RVR SNOMED Code(s): 809236901286293 Code(s): I48.91 - UNSPECIFIED ATRIAL FIBRILLATION Status: Acute Priority: High Current Visit: No (4) Anticoagulant long-term use SNOMED Code(s): 278671204 Code(s): Z79.01 - JAIL (CURRENT) USE OF ANTICOAGULANTS Status: Chronic Current Visit: No (5) Fibrillation, atrial SNOMED Code(s): 00608154 Code(s): I48.91 - UNSPECIFIED ATRIAL FIBRILLATION Status: Chronic Priority: High Current Visit: No Qualifiers: Atrial fibrillation type: chronic (6) Hypercholesteremia SNOMED Code(s): 41421201 Code(s): E78.0 - PURE HYPERCHOLESTEROLEMIA * DO NOT USE * Status: Chronic Current Visit: No (7) Hypothyroid SNOMED Code(s): 06233508 Code(s): E03.9 - HYPOTHYROIDISM, UNSPECIFIED Status: Chronic Current Visit: No Qualifiers: Hypothyroidism type: unspecified Qualified Code(s): E03.9 - Hypothyroidism, unspecified - Problem List Review Problem List Initiated/Reviewed/Updated: Yes - My Orders Last 24 Hours: My Active Orders 10/10/20 12:45 Diltiazem [Cardizem CD] 120 mg PO DAILY 10/10/20 20:08 Discontinue Telemetry Monitoring [Cardiac Monitoring Discontinue] [RC] Click to Edit 10/10/20 20:09 LORazepam [Ativan] 2 mg IVPUSH Q6H PRN 10/11/20 14:00 Warfarin [Coumadin] 1 mg PO 10/11/20@1400 10/11/20 21:00 QUEtiapine [SEROqueL] 25 mg PO BEDTIME 10/12/20 05:11 MAGNESIUM [CHEM] AM PHOSPHORUS [CHEM] AM - Plan Plan:: 69-year-old gentleman Covid positive without respiratory symptoms was admitted with pneumonia body dementia with significant decline and failure to thrive over the last 5 days. 1. A. fib with RVR: Resolved patient appears stable and asymptomatic, continue to monitor on telemetry, Cardizem as needed, remains on anticoagulation., start PO Cardizem, stop metoprolol as patient is on atenolol CTA noted Continue daily INRs, pharmacy asked for Coumadin dosing, INR today was subtherapeutic 1.3, pharmacy will continue to increase dose with a goal of 2-3. 2. Failure to thrive: is eating better, PT consulted, will monitor for improvement, may need SNF 3. Covid positive: satting 92- 93% on room air. cont Levaquin for PNA, cont remdesivir, cont dexamethasone. oxygen as needed to keep o2>92 %, Tylenol for fevers. 4. GABBY: resolved, avoid nephrotoxic agents, renally dose antibiotics, continue to hydrate p.o cont fluids as PO intake has been limited 5. Hypophosphatemia, Hypomagnesemia: repleted, recheck in AM GI prophylaxis 40 IV pantoprazole daily, SCDs and Coumadin for DVT prophylaxis, Zofran for nausea, heart healthy diet
[2020-10-11] MEDS: Levofloxacin/Dextrose 5%-Water 750 MG in Premix Bag 1 BAG IV SCH (13:32)
[2020-10-11] MEDS: Phosphorus #1 250 MG Tab PO SCH ×4 (13:41→23:49)
[2020-10-11] MEDS ORDERED: Warfarin 5 MG Tab PO SCH (14:00)
[2020-10-11] MEDS: LORazepam 2 MG/ML SDV IVPUSH PRN (14:28)
[2020-10-11] MEDS ORDERED: Ketorolac 30 MG/ML SDV IVPUSH ONE (18:19)
[2020-10-11] MEDS: REMDESIVIR 100 MG in Sodium Chloride 0.9% 100 ML IV SCH (20:59)
[2020-10-11] MEDS ORDERED: QUEtiapine 25 MG Tab PO SCH (21:00)
[2020-10-11] MEDS: Simvastatin 20 MG Tab PO SCH (22:28)
[2020-10-11] MEDS: Melatonin 3 MG Tab PO SCH (22:28)
[2020-10-11] MEDS: Levothyroxine 25 MCG Tab PO SCH (22:28)
[2020-10-11] MEDS: Montelukast 10 MG Tab PO SCH (22:28)
[2020-10-11] MEDS: Carbidopa/Levodopa 25-100 MG Tab PO SCH (22:29)
[2020-10-12] MEDS: Carbidopa/Levodopa 25-100 MG Tab PO SCH ×3 (06:31→21:52)
[2020-10-12] MEDS: Phosphorus #1 250 MG Tab PO SCH ×3 (06:31→18:00)
[2020-10-12 07:00] LABS: BLOOD UREA NITROGEN,BUN 23 mg/dL (7.0-18.0); CARBON DIOXIDE,CO2 20.7 mmol/L (21.0-32.0); CHLORIDE,CL 108 mmol/L (98-107); GLUCOSE RANDOM 123 mg/dL (74-106); POTASSIUM,K 4.1 mmol/L (3.5-5.1); SODIUM,NA 141 mmol/L (136-148)
[2020-10-12] MEDS: Sodium Chloride 0.9% 1,000 ML IV SCH ×3 (07:16→19:04)
[2020-10-12] MEDS: Pantoprazole 40 MG in Sodium Chloride 0.9% 10 ML IV SCH (09:02)
[2020-10-12] MEDS: Dexamethasone 4 MG Tab PO SCH (09:13)
[2020-10-12] MEDS: Atenolol 50 MG Tab PO SCH (09:14)
[2020-10-12] MEDS: Diltiazem 120 MG Cap.CD PO SCH (09:14)
[2020-10-12] MEDS: RIVASTIGMINE 3 MG PO SCH ×3 (09:15→21:52)
[2020-10-12] MEDS: Levofloxacin/Dextrose 5%-Water 750 MG in Premix Bag 1 BAG IV SCH (11:18)
--- NOTE | 2020-10-12 13:37 | PCM.PN ---
- General Info Date of Service: 10/12/20 Admission Dx/Problem (Free Text): Admission Diagnosis/Problem Admission Diagnosis/Problem Weakness Subjective Update: 69-year-old male with history of Lewy body dementia recently was diagnosed with Covid respiratory symptoms but have not found to have significant decline with failure to thrive. This AM patient was sleeping, didnt answer many questions. on 2L NC nowl Functional Status: Reports: Urinating. Denies: Tolerating Diet, Ambulating - Review of Systems Systems Review Comment:: unable to obtain as patient is unwilling to answer, wants to sleep - Patient Data Vitals - Most Recent: Last Vital Signs Temp 36.2 C 10/12/20 11:18 Pulse 88 10/12/20 11:18 Resp 20 10/12/20 11:18 BP 131/74 10/12/20 11:18 Pulse Ox 96 10/12/20 11:18 Weight - Most Recent: 79.787 kg I&O - Last 24 Hours: Intake & Output 10/11/20 10/12/20 10/12/20 22:59 06:59 14:59 Intake Total 1576 1157 Output Total 670 340 Balance 906 817 Lab Results Last 24 Hours: Laboratory Results - last 24 hr 10/11/20 10/11/20 10/12/20 Range/Units 21:46 21:49 05:50 WBC 3.47 L (4.0-11.0) K/uL RBC 2.81 L (4.50-5.90) M/uL Hgb 9.8 L (13.0-17.0) g/dL Hct 28.0 L (38.0-50.0) % MCV 99.6 H (80.0-98.0) fL MCH 34.9 H (27.0-32.0) pg MCHC 35.0 (31.0-37.0) g/dL RDW Std Deviation 49.6 (28.0-62.0) fl RDW Coeff of Dano 14 (11.0-15.0) % Plt Count 226 (150-400) K/uL MPV 10.10 (7.40-12.00) fL Neut % (Auto) 91.6 H (48.0-80.0) % Lymph % (Auto) 8.1 L (16.0-40.0) % Redwood % (Auto) 0.3 (0.0-15.0) % Eos % (Auto) 0.0 (0.0-7.0) % Baso % (Auto) 0.0 (0.0-1.5) % Neut # (Auto) 3.2 (1.4-5.7) K/uL Lymph # (Auto) 0.3 L (0.6-2.4) K/uL Redwood # (Auto) 0.0 (0.0-0.8) K/uL Eos # (Auto) 0.0 (0.0-0.7) K/uL Baso # (Auto) 0.0 (0.0-0.1) K/uL Nucleated RBC % 0.0 /100WBC Nucleated RBCs # 0 K/uL INR ABG pH 7.472 H (7.35-7.45) ABG pCO2 28 L (35-45) mmHG ABG pO2 92 (75-100) mmHG ABG HCO3 21 L (22-26) mEq/L ABG Total CO2 18.9 ABG Base Excess -2.2 L (-2.0-2.0) Lactate 1.3 (0.20-2.00) mmol/L Sodium (136-148) mmol/L Potassium (3.5-5.1) mmol/L Chloride (98-107) mmol/L Carbon Dioxide (21.0-32.0) mmol/L BUN (7.0-18.0) mg/dL Creatinine (0.8-1.3) mg/dL Est Cr Clr Drug Dosing mL/min Estimated GFR (MDRD) ml/min Glucose (74-106) mg/dL Calcium (8.5-10.1) mg/dL Phosphorus (2.6-4.7) mg/dL Magnesium (1.8-2.4) mg/dL Total Bilirubin (0.2-1.0) mg/dL AST (15-37) IU/L ALT (14-63) IU/L Alkaline Phosphatase (46-116) U/L Total Protein (6.4-8.2) g/dL Albumin (3.4-5.0) g/dL Globulin (2.6-4.0) g/dL Albumin/Globulin Ratio (0.9-1.6) 10/12/20 10/12/20 Range/Units 05:50 05:50 WBC (4.0-11.0) K/uL RBC (4.50-5.90) M/uL Hgb (13.0-17.0) g/dL Hct (38.0-50.0) % MCV (80.0-98.0) fL MCH (27.0-32.0) pg MCHC (31.0-37.0) g/dL RDW Std Deviation (28.0-62.0) fl RDW Coeff of Dano (11.0-15.0) % Plt Count (150-400) K/uL MPV (7.40-12.00) fL Neut % (Auto) (48.0-80.0) % Lymph % (Auto) (16.0-40.0) % Redwood % (Auto) (0.0-15.0) % Eos % (Auto) (0.0-7.0) % Baso % (Auto) (0.0-1.5) % Neut # (Auto) (1.4-5.7) K/uL Lymph # (Auto) (0.6-2.4) K/uL Redwood # (Auto) (0.0-0.8) K/uL Eos # (Auto) (0.0-0.7) K/uL Baso # (Auto) (0.0-0.1) K/uL Nucleated RBC % /100WBC Nucleated RBCs # K/uL INR 6.42 ABG pH (7.35-7.45) ABG pCO2 (35-45) mmHG ABG pO2 (75-100) mmHG ABG HCO3 (22-26) mEq/L ABG Total CO2 ABG Base Excess (-2.0-2.0) Lactate (0.20-2.00) mmol/L Sodium 141 (136-148) mmol/L Potassium 4.1 (3.5-5.1) mmol/L Chloride 108 H (98-107) mmol/L Carbon Dioxide 20.7 L (21.0-32.0) mmol/L BUN 23 H (7.0-18.0) mg/dL Creatinine 1.0 (0.8-1.3) mg/dL Est Cr Clr Drug Dosing 80.90 mL/min Estimated GFR (MDRD) > 60.0 ml/min Glucose 123 H (74-106) mg/dL Calcium 8.2 L (8.5-10.1) mg/dL Phosphorus 3.1 (2.6-4.7) mg/dL Magnesium 2.0 (1.8-2.4) mg/dL Total Bilirubin 0.5 (0.2-1.0) mg/dL AST 43 H (15-37) IU/L ALT 35 (14-63) IU/L Alkaline Phosphatase 43 L (46-116) U/L Total Protein 5.7 L (6.4-8.2) g/dL Albumin 2.1 L (3.4-5.0) g/dL Globulin 3.6 (2.6-4.0) g/dL Albumin/Globulin Ratio 0.6 L (0.9-1.6) Yony Results Last 24 Hours: Microbiology 10/08/20 02:12 Aerobic Blood Culture - Preliminary Blood - Venous - Lab Draw NO GROWTH AFTER 4 DAYS Anaerobic Blood Culture - Preliminary NO GROWTH AFTER 4 DAYS 10/08/20 02:07 Aerobic Blood Culture - Preliminary Blood - Venous NO GROWTH AFTER 4 DAYS Anaerobic Blood Culture - Preliminary NO GROWTH AFTER 4 DAYS Med Orders - Current: Current Medications Acetaminophen (Tylenol) 650 mg PO Q6H PRN PRN Reason: fever/pain Last Admin: 10/10/20 13:16 Dose: 650 mg Documented by: Atenolol (Tenormin) 50 mg PO DAILY [facility] Last Admin: 10/12/20 09:14 Dose: Not Given Documented by: Carbidopa/Levodopa (Sinemet 25-100 Mg) 1 tab PO TID [facility] Last Admin: 10/12/20 06:31 Dose: Not Given Documented by: Dexamethasone (Decadron) 6 mg IVPUSH DAILY [facility] Stop: 10/19/20 23:55 Diltiazem HCl (Diltiazem) 10 mg IVPUSH Q3H PRN PRN Reason: HR above 110 Last Admin: 10/08/20 20:33 Dose: 10 mg Documented by: Diltiazem HCl (Cardizem Cd) 120 mg PO DAILY [facility] Last Admin: 10/12/20 09:14 Dose: Not Given Documented by: Pantoprazole Sodium 40 mg/ (Sodium Chloride) 10 mls @ 300 mls/hr IV DAILY [facility] Last Admin: 10/12/20 09:02 Dose: 300 mls/hr Documented by: Remdesivir 100 mg/ Sodium (Chloride) 100 mls @ 100 mls/hr IV Q24H [facility] Stop: 10/12/20 21:59 Last Admin: 10/11/20 20:59 Dose: 100 mls/hr Documented by: Levofloxacin/Dextrose 750 mg/ (Premix) 150 mls @ 100 mls/hr IV Q24H [facility] Last Admin: 10/12/20 11:18 Dose: 100 mls/hr Documented by: Sodium Chloride (Normal Saline) 1,000 mls @ 100 mls/hr IV Q10H [facility] Last Admin: 10/12/20 07:16 Dose: 100 mls/hr Documented by: Ketorolac Tromethamine (Toradol) 15 mg IVPUSH ONETIME ONE Stop: 10/12/20 15:01 Levothyroxine Sodium (Levothyroxine) 25 mcg PO BEDTIME [facility] Last Admin: 10/11/20 22:28 Dose: Not Given Documented by: Melatonin (Melatonin) 6 mg PO BEDTIME [facility] Last Admin: 10/11/20 22:28 Dose: Not Given Documented by: Montelukast Sodium (Singulair) 10 mg PO BEDTIME [facility] Last Admin: 10/11/20 22:28 Dose: Not Given Documented by: Ondansetron HCl (Zofran Odt) 4 mg PO Q4H PRN PRN Reason: nausea, able to take PO Rivastigmine 3 Mg 1 each PO BID [facility] Last Admin: 10/12/20 09:15 Dose: Not Given Documented by: Simvastatin (Zocor) 20 mg PO BEDTIME [facility] Last Admin: 10/11/20 22:28 Dose: Not Given Documented by: Sodium Phosphate (Neutra-Phos) 250 mg PO QID [facility] Last Admin: 10/12/20 11:50 Dose: Not Given Documented by: Warfarin Sodium (Coumadin Ask) 1 each PO DAILY@1400 [facility] Last Admin: 10/11/20 17:56 Dose: Not Given Documented by: Discontinued Medications Dexamethasone (Dexamethasone) 6 mg PO DAILY [facility] Stop: 10/18/20 18:31 Last Admin: 10/12/20 09:13 Dose: Not Given Documented by: Digoxin (Lanoxin) 250 mcg IVPUSH ONETIME ONE Stop: 10/07/20 22:51 Last Admin: 10/08/20 00:31 Dose: 250 mcg Documented by: Diltiazem HCl (Diltiazem) 10 mg IVPUSH ONETIME ONE Stop: 10/07/20 21:32 Last Admin: 10/07/20 22:10 Dose: 10 mg Documented by: Diltiazem HCl (Diltiazem) 10 mg IVPUSH ONETIME ONE Stop: 10/07/20 22:51 Last Admin: 10/07/20 23:12 Dose: 10 mg Documented by: Haloperidol Lactate (Haldol) 2 mg IM ONETIME ONE Stop: 10/10/20 21:44 Last Admin: 10/10/20 22:16 Dose: 2 mg Documented by: Sodium Chloride (Normal Saline) 1,000 mls @ 999 mls/hr IV .BOLUS ONE Stop: 10/07/20 14:51 Last Admin: 10/07/20 14:12 Dose: 999 mls/hr Documented by: Sodium Chloride (Normal Saline) 1,000 mls @ 125 mls/hr IV ASDIRECTED [facility] Sodium Chloride (Normal Saline) 1,000 mls @ 150 mls/hr IV ASDIRECTED ONE Stop: 10/08/20 01:09 Last Admin: 10/07/20 18:43 Dose: 125 mls/hr Documented by: Sodium Chloride (Normal Saline) 1,000 mls @ 150 mls/hr IV ASDIRECTED [facility] Last Admin: 10/11/20 03:57 Dose: 150 mls/hr Documented by: Levofloxacin/Dextrose 750 mg/ (Premix) 150 mls @ 100 mls/hr IV Q24H [facility] Last Admin: 10/10/20 12:57 Dose: Not Given Documented by: Remdesivir 200 mg/ Sodium (Chloride) 250 mls @ 250 mls/hr IV ONETIME ONE Stop: 10/08/20 18:30 Last Admin: 10/08/20 20:50 Dose: 250 mls/hr Documented by: Remdesivir 100 mg/ Sodium (Chloride) 100 mls @ 100 mls/hr IV Q24H [facility] Stop: 10/12/20 19:29 Magnesium Sulfate (Magnesium Sulfate In Water Premix) 2 gm in 50 mls @ 50 mls/hr IV ONETIME ONE Stop: 10/10/20 07:01 Last Admin: 10/10/20 06:37 Dose: 50 mls/hr Documented by: Potassium Phosphate 30 mmole/ (Sodium Chloride) 510 mls @ 127.5 mls/hr IV ONETIME ONE Stop: 10/10/20 11:59 Last Admin: 10/10/20 08:06 Dose: 127.5 mls/hr Documented by: Magnesium Sulfate (Magnesium Sulfate In Water Premix) 2 gm in 50 mls @ 50 mls/hr IV ONETIME ONE Stop: 10/11/20 09:12 Last Admin: 10/11/20 09:16 Dose: 50 mls/hr Documented by: Iopamidol (Isovue Multipack-370 (76%)) 80 ml IVPUSH ONETIME STA Stop: 10/08/20 15:33 Last Admin: 10/08/20 15:33 Dose: 80 ml Documented by: Ketorolac Tromethamine (Toradol) 30 mg IVPUSH ONETIME ONE Stop: 10/11/20 18:20 Last Admin: 10/11/20 18:47 Dose: 30 mg Documented by: Lorazepam (Ativan) 1 mg IVPUSH ONETIME ONE Stop: 10/07/20 23:20 Last Admin: 10/07/20 23:38 Dose: 1 mg Documented by: Lorazepam (Ativan) 0.5 mg IVPUSH ONETIME ONE Stop: 10/08/20 03:23 Last Admin: 10/08/20 16:27 Dose: Not Given Documented by: Lorazepam (Ativan) 2 mg IVPUSH Q6H PRN PRN Reason: Agitation Last Admin: 10/11/20 14:28 Dose: 2 mg Documented by: Lorazepam (Ativan) 1 mg IVPUSH ONETIME ONE Stop: 10/10/20 21:45 Last Admin: 10/10/20 22:16 Dose: 1 mg Documented by: Metoprolol Succinate (Toprol Xl) 50 mg PO DAILY [facility] Last Admin: 10/09/20 10:39 Dose: 50 mg Documented by: Ondansetron HCl (Zofran) 4 mg IVPUSH ONETIME ONE Stop: 10/07/20 14:23 Last Admin: 10/07/20 14:50 Dose: 4 mg Documented by: Quetiapine Fumarate (Seroquel) 25 mg PO BEDTIME [facility] Warfarin Sodium (Coumadin) 5 mg PO 10/08/20@0930 [facility] Stop: 10/08/20 09:31 Last Admin: 10/08/20 10:40 Dose: 5 mg Documented by: Warfarin Sodium (Coumadin) 1 mg PO 10/09/20@1400 [facility] Stop: 10/09/20 16:00 Last Admin: 10/09/20 15:26 Dose: 1 mg Documented by: Warfarin Sodium (Coumadin) 2.5 mg PO 10/10/20@1400 [facility] Stop: 10/10/20 15:00 Last Admin: 10/10/20 13:22 Dose: 2.5 mg Documented by: Warfarin Sodium (Coumadin) 1 mg PO 10/11/20@1400 [facility] Stop: 10/11/20 16:00 Last Admin: 10/11/20 17:55 Dose: 1 mg Documented by: - Exam Quality Assessment: Supplemental Oxygen General: No Acute Distress Neck: Supple, Trachea Midline Lungs: Normal Respiratory Effort, Crackles Cardiovascular: Regular Rate, Regular Rhythm GI/Abdominal Exam: Normal Bowel Sounds, Soft, Non-Tender Extremities: Normal Inspection, Normal Range of Motion Sepsis Event Note - Evaluation Sepsis Screening Result: Severe Sepsis Risk - Focused Exam Vital Signs: Vital Signs Temp Pulse Pulse Resp BP Pulse Ox 10/12/20 11:18 36.2 C 88 20 131/74 96 10/12/20 09:14 92 10/12/20 07:22 36.2 C 87 22 H 146/68 H 93 L 10/12/20 04:48 91 L 10/12/20 03:16 36.3 C 80 20 126/78 94 L - Problem List & Annotations (1) Lewy body dementia SNOMED Code(s): 854802984 Code(s): G31.83 - DEMENTIA WITH LEWY BODIES; F02.80 - DEMENTIA IN OTH DISEASES CLASSD ELSWHR W/O BEHAVRL DISTURB Status: Acute Current Visit: Yes (2) COVID-19 SNOMED Code(s): 719665968 Code(s): U07.1 - COVID-19 Status: Acute Current Visit: Yes (3) Atrial fibrillation with RVR SNOMED Code(s): 216852278518317 Code(s): I48.91 - UNSPECIFIED ATRIAL FIBRILLATION Status: Acute Priority: High Current Visit: No (4) Anticoagulant long-term use SNOMED Code(s): 284278368 Code(s): Z79.01 - [employer] (CURRENT) USE OF ANTICOAGULANTS Status: Chronic Current Visit: No (5) Fibrillation, atrial SNOMED Code(s): 26754586 Code(s): I48.91 - UNSPECIFIED ATRIAL FIBRILLATION Status: Chronic Priority: High Current Visit: No Qualifiers: Atrial fibrillation type: chronic (6) Hypercholesteremia SNOMED Code(s): 10438285 Code(s): E78.0 - PURE HYPERCHOLESTEROLEMIA * DO NOT USE * Status: Chronic Current Visit: No (7) Hypothyroid SNOMED Code(s): 42948647 Code(s): E03.9 - HYPOTHYROIDISM, UNSPECIFIED Status: Chronic Current Visit: No Qualifiers: Hypothyroidism type: unspecified Qualified Code(s): E03.9 - Hypothyroidism, unspecified - Problem List Review Problem List Initiated/Reviewed/Updated: Yes - My Orders Last 24 Hours: My Active Orders 10/11/20 21:00 Melatonin 6 mg PO BEDTIME 10/11/20 22:00 Carbidopa/Levodopa [Sinemet 25-100 mg] 1 tab PO TID 10/12/20 13:28 UA RFX YONY AND CULT IF INDIC [URIN] Routine 10/12/20 13:30 dexAMETHasone [Decadron] 6 mg IVPUSH DAILY 10/12/20 15:00 Ketorolac [Toradol] 15 mg IVPUSH ONETIME ONE 10/13/20 05:11 CBC WITH AUTO DIFF [HEME] AM CMP [COMPREHENSIVE METABOLIC PN,CMP] [CHEM] AM MAGNESIUM [CHEM] AM PHOSPHORUS [CHEM] AM 10/14/20 05:11 CBC WITH AUTO DIFF [HEME] AM CMP [COMPREHENSIVE METABOLIC PN,CMP] [CHEM] AM MAGNESIUM [CHEM] AM PHOSPHORUS [CHEM] AM - Plan Plan:: 69-year-old gentleman Covid positive without respiratory symptoms was admitted with pneumonia body dementia with significant decline and failure to thrive over the last 5 days. 1. A. fib with RVR: Resolved remains on anticoagulation., start PO Cardizem, stop metoprolol as patient is on atenolol CTA noted Continue daily INRs, supra-therapeutic today, pharmacy asked for Coumadin dosing, hold todays dose 2. Failure to thrive: PO intake of food and meds limited, cont IV fluids for now 3. Covid positive: satting 92- 93% on2Lts. cont Levaquin for PNA, cont remdesivir, cont dexamethasone. oxygen as needed to keep o2>92 %, Tylenol for fevers. 4. GABBY: resolved, avoid nephrotoxic agents, renally dose antibiotics, continue to hydrate p.o cont fluids as PO intake has been limited GI prophylaxis 40 IV pantoprazole daily, SCDs and Coumadin for DVT prophylaxis, Zofran for nausea, heart healthy diet
[2020-10-12] MEDS: Dexamethasone 10 MG/ML SDV IVPUSH SCH (14:15)
[2020-10-12] MEDS ORDERED: Ketorolac 15 MG/ML SDV IVPUSH ONE (15:00)
[2020-10-12] MEDS: REMDESIVIR 100 MG in Sodium Chloride 0.9% 100 ML IV SCH (20:29)
[2020-10-12] MEDS: Levothyroxine 25 MCG Tab PO SCH (21:51)
[2020-10-12] MEDS: Melatonin 3 MG Tab PO SCH (21:52)
[2020-10-12] MEDS: Simvastatin 20 MG Tab PO SCH (21:52)
[2020-10-12] MEDS: Montelukast 10 MG Tab PO SCH (21:52)
[2020-10-13] MEDS: Phosphorus #1 250 MG Tab PO SCH ×5 (00:32→23:34)
[2020-10-13] MEDS: Sodium Chloride 0.9% 1,000 ML IV SCH ×2 (05:58→12:53)
[2020-10-13] MEDS: Carbidopa/Levodopa 25-100 MG Tab PO SCH ×3 (06:02→21:06)
[2020-10-13 07:03] LABS: BLOOD UREA NITROGEN,BUN 25 mg/dL (7.0-18.0); CARBON DIOXIDE,CO2 21.2 mmol/L (21.0-32.0); CHLORIDE,CL 110 mmol/L (98-107); GLUCOSE RANDOM 120 mg/dL (74-106); POTASSIUM,K 3.7 mmol/L (3.5-5.1); SODIUM,NA 144 mmol/L (136-148)
[2020-10-13] MEDS: Diltiazem 120 MG Cap.CD PO SCH (09:26)
[2020-10-13] MEDS: RIVASTIGMINE 3 MG PO SCH ×2 (09:26→20:43)
[2020-10-13] MEDS: Atenolol 50 MG Tab PO SCH (09:27)
[2020-10-13] MEDS: Pantoprazole 40 MG in Sodium Chloride 0.9% 10 ML IV SCH (09:28)
[2020-10-13] MEDS ORDERED: Magnesium Sulfate/Water 2 GM/50 ML BAG IV ONE (11:18)
--- NOTE | 2020-10-13 11:19 | PCM.PN ---
- General Info Date of Service: 10/13/20 Admission Dx/Problem (Free Text): Admission Diagnosis/Problem Admission Diagnosis/Problem Weakness Subjective Update: 69-year-old male with history of Lewy body dementia recently was diagnosed with Covid respiratory symptoms but have not found to have significant decline with failure to thrive. This AM patient was sleeping, didnt answer many questions. on 2L NC nowl, nurse was able to administer some PO meds Functional Status: Reports: Urinating (unable to answer questions). Denies: Tolerating Diet, Ambulating - Patient Data Vitals - Most Recent: Last Vital Signs Temp 36.5 C 10/13/20 09:24 Pulse 96 10/13/20 09:27 Resp 20 10/13/20 09:24 BP 150/85 H 10/13/20 09:27 Pulse Ox 93 L 10/13/20 09:24 Weight - Most Recent: 79.787 kg I&O - Last 24 Hours: Intake & Output 10/12/20 10/13/20 10/13/20 22:59 06:59 14:59 Intake Total 1234 970 Output Total 280 Balance 954 970 Lab Results Last 24 Hours: Laboratory Results - last 24 hr 10/13/20 10/13/20 10/13/20 Range/Units 06:15 06:15 06:15 WBC 2.55 L (4.0-11.0) K/uL RBC 2.55 L (4.50-5.90) M/uL Hgb 9.0 L (13.0-17.0) g/dL Hct 25.8 L (38.0-50.0) % MCV 101.2 H (80.0-98.0) fL MCH 35.3 H (27.0-32.0) pg MCHC 34.9 (31.0-37.0) g/dL RDW Std Deviation 51.2 (28.0-62.0) fl RDW Coeff of [place] 14 (11.0-15.0) % Plt Count 246 (150-400) K/uL MPV 9.40 (7.40-12.00) fL Neut % (Auto) 91.0 H (48.0-80.0) % Lymph % (Auto) 9.0 L (16.0-40.0) % [place] % (Auto) 0.0 (0.0-15.0) % Eos % (Auto) 0.0 (0.0-7.0) % Baso % (Auto) 0.0 (0.0-1.5) % Neut # (Auto) 2.3 (1.4-5.7) K/uL Lymph # (Auto) 0.2 L (0.6-2.4) K/uL [place] # (Auto) 0.0 (0.0-0.8) K/uL Eos # (Auto) 0.0 (0.0-0.7) K/uL Baso # (Auto) 0.0 (0.0-0.1) K/uL Nucleated RBC % 0.0 /100WBC Nucleated RBCs # 0 K/uL INR 7.93 H* Sodium 144 (136-148) mmol/L Potassium 3.7 (3.5-5.1) mmol/L Chloride 110 H (98-107) mmol/L Carbon Dioxide 21.2 (21.0-32.0) mmol/L BUN 25 H (7.0-18.0) mg/dL Creatinine 0.9 (0.8-1.3) mg/dL Est Cr Clr Drug Dosing 89.88 mL/min Estimated GFR (MDRD) > 60.0 ml/min Glucose 120 H (74-106) mg/dL Calcium 7.9 L (8.5-10.1) mg/dL Phosphorus 3.2 (2.6-4.7) mg/dL Magnesium 1.6 L (1.8-2.4) mg/dL Total Bilirubin 0.6 (0.2-1.0) mg/dL AST 41 H (15-37) IU/L ALT 33 (14-63) IU/L Alkaline Phosphatase 42 L (46-116) U/L Total Protein 5.3 L (6.4-8.2) g/dL Albumin 2.1 L (3.4-5.0) g/dL Globulin 3.2 (2.6-4.0) g/dL Albumin/Globulin Ratio 0.7 L (0.9-1.6) Yony Results Last 24 Hours: Microbiology 10/08/20 02:12 Aerobic Blood Culture - Final Blood - Venous - Lab Draw NO GROWTH AFTER 5 DAYS Anaerobic Blood Culture - Final NO GROWTH AFTER 5 DAYS 10/08/20 02:07 Aerobic Blood Culture - Final Blood - Venous NO GROWTH AFTER 5 DAYS Anaerobic Blood Culture - Final NO GROWTH AFTER 5 DAYS Med Orders - Current: Current Medications Acetaminophen (Tylenol) 650 mg PO Q6H PRN PRN Reason: fever/pain Last Admin: 10/10/20 13:16 Dose: 650 mg Documented by: Atenolol (Tenormin) 50 mg PO DAILY [facility] Last Admin: 10/13/20 09:27 Dose: 50 mg Documented by: Carbidopa/Levodopa (Sinemet 25-100 Mg) 1 tab PO TID [facility] Last Admin: 10/13/20 06:02 Dose: Not Given Documented by: Dexamethasone (Decadron) 6 mg IVPUSH Q24H [facility] Last Admin: 10/12/20 14:15 Dose: 6 mg Documented by: Diltiazem HCl (Diltiazem) 10 mg IVPUSH Q3H PRN PRN Reason: HR above 110 Last Admin: 10/08/20 20:33 Dose: 10 mg Documented by: Diltiazem HCl (Cardizem Cd) 120 mg PO DAILY [facility] Last Admin: 10/13/20 09:26 Dose: 120 mg Documented by: Pantoprazole Sodium 40 mg/ (Sodium Chloride) 10 mls @ 300 mls/hr IV DAILY [facility] Last Admin: 10/13/20 09:28 Dose: 300 mls/hr Documented by: Levofloxacin/Dextrose 750 mg/ (Premix) 150 mls @ 100 mls/hr IV Q24H [facility] Last Admin: 10/12/20 11:18 Dose: 100 mls/hr Documented by: Sodium Chloride (Normal Saline) 1,000 mls @ 100 mls/hr IV Q10H [facility] Last Admin: 10/13/20 05:58 Dose: 100 mls/hr Documented by: Magnesium Sulfate (Magnesium Sulfate In Water Premix) 2 gm in 50 mls @ 50 mls/hr IV ONETIME ONE Stop: 10/13/20 12:17 Levothyroxine Sodium (Levothyroxine) 25 mcg PO BEDTIME [facility] Last Admin: 10/12/20 21:51 Dose: Not Given Documented by: Melatonin (Melatonin) 6 mg PO BEDTIME [facility] Last Admin: 10/12/20 21:52 Dose: Not Given Documented by: Montelukast Sodium (Singulair) 10 mg PO BEDTIME [facility] Last Admin: 10/12/20 21:52 Dose: Not Given Documented by: Ondansetron HCl (Zofran Odt) 4 mg PO Q4H PRN PRN Reason: nausea, able to take PO Rivastigmine 3 Mg 1 each PO BID [facility] Last Admin: 10/13/20 09:26 Dose: 1 each Documented by: Simvastatin (Zocor) 20 mg PO BEDTIME [facility] Last Admin: 10/12/20 21:52 Dose: Not Given Documented by: Sodium Phosphate (Neutra-Phos) 250 mg PO QID [facility] Last Admin: 10/13/20 06:02 Dose: Not Given Documented by: Warfarin Sodium (Coumadin Ask) 1 each PO DAILY@1400 [facility] Last Admin: 10/12/20 13:49 Dose: Not Given Documented by: Discontinued Medications Dexamethasone (Dexamethasone) 6 mg PO DAILY [facility] Stop: 10/18/20 18:31 Last Admin: 10/12/20 09:13 Dose: Not Given Documented by: Digoxin (Lanoxin) 250 mcg IVPUSH ONETIME ONE Stop: 10/07/20 22:51 Last Admin: 10/08/20 00:31 Dose: 250 mcg Documented by: Diltiazem HCl (Diltiazem) 10 mg IVPUSH ONETIME ONE Stop: 10/07/20 21:32 Last Admin: 10/07/20 22:10 Dose: 10 mg Documented by: Diltiazem HCl (Diltiazem) 10 mg IVPUSH ONETIME ONE Stop: 10/07/20 22:51 Last Admin: 10/07/20 23:12 Dose: 10 mg Documented by: Haloperidol Lactate (Haldol) 2 mg IM ONETIME ONE Stop: 10/10/20 21:44 Last Admin: 10/10/20 22:16 Dose: 2 mg Documented by: Sodium Chloride (Normal Saline) 1,000 mls @ 999 mls/hr IV .BOLUS ONE Stop: 10/07/20 14:51 Last Admin: 10/07/20 14:12 Dose: 999 mls/hr Documented by: Sodium Chloride (Normal Saline) 1,000 mls @ 125 mls/hr IV ASDIRECTED [facility] Sodium Chloride (Normal Saline) 1,000 mls @ 150 mls/hr IV ASDIRECTED ONE Stop: 10/08/20 01:09 Last Admin: 10/07/20 18:43 Dose: 125 mls/hr Documented by: Sodium Chloride (Normal Saline) 1,000 mls @ 150 mls/hr IV ASDIRECTED [facility] Last Admin: 10/11/20 03:57 Dose: 150 mls/hr Documented by: Levofloxacin/Dextrose 750 mg/ (Premix) 150 mls @ 100 mls/hr IV Q24H [facility] Last Admin: 10/10/20 12:57 Dose: Not Given Documented by: Remdesivir 200 mg/ Sodium (Chloride) 250 mls @ 250 mls/hr IV ONETIME ONE Stop: 10/08/20 18:30 Last Admin: 10/08/20 20:50 Dose: 250 mls/hr Documented by: Remdesivir 100 mg/ Sodium (Chloride) 100 mls @ 100 mls/hr IV Q24H [facility] Stop: 10/12/20 19:29 Remdesivir 100 mg/ Sodium (Chloride) 100 mls @ 100 mls/hr IV Q24H [facility] Stop: 10/12/20 21:59 Last Admin: 10/12/20 20:29 Dose: 100 mls/hr Documented by: Magnesium Sulfate (Magnesium Sulfate In Water Premix) 2 gm in 50 mls @ 50 mls/hr IV ONETIME ONE Stop: 10/10/20 07:01 Last Admin: 10/10/20 06:37 Dose: 50 mls/hr Documented by: Potassium Phosphate 30 mmole/ (Sodium Chloride) 510 mls @ 127.5 mls/hr IV ONETIME ONE Stop: 10/10/20 11:59 Last Admin: 10/10/20 08:06 Dose: 127.5 mls/hr Documented by: Magnesium Sulfate (Magnesium Sulfate In Water Premix) 2 gm in 50 mls @ 50 mls/hr IV ONETIME ONE Stop: 10/11/20 09:12 Last Admin: 10/11/20 09:16 Dose: 50 mls/hr Documented by: Iopamidol (Isovue Multipack-370 (76%)) 80 ml IVPUSH ONETIME STA Stop: 10/08/20 15:33 Last Admin: 10/08/20 15:33 Dose: 80 ml Documented by: Ketorolac Tromethamine (Toradol) 30 mg IVPUSH ONETIME ONE Stop: 10/11/20 18:20 Last Admin: 10/11/20 18:47 Dose: 30 mg Documented by: Ketorolac Tromethamine (Toradol) 15 mg IVPUSH ONETIME ONE Stop: 10/12/20 15:01 Last Admin: 10/12/20 14:10 Dose: 15 mg Documented by: Lorazepam (Ativan) 1 mg IVPUSH ONETIME ONE Stop: 10/07/20 23:20 Last Admin: 10/07/20 23:38 Dose: 1 mg Documented by: Lorazepam (Ativan) 0.5 mg IVPUSH ONETIME ONE Stop: 10/08/20 03:23 Last Admin: 10/08/20 16:27 Dose: Not Given Documented by: Lorazepam (Ativan) 2 mg IVPUSH Q6H PRN PRN Reason: Agitation Last Admin: 10/11/20 14:28 Dose: 2 mg Documented by: Lorazepam (Ativan) 1 mg IVPUSH ONETIME ONE Stop: 10/10/20 21:45 Last Admin: 10/10/20 22:16 Dose: 1 mg Documented by: Metoprolol Succinate (Toprol Xl) 50 mg PO DAILY [facility] Last Admin: 10/09/20 10:39 Dose: 50 mg Documented by: Ondansetron HCl (Zofran) 4 mg IVPUSH ONETIME ONE Stop: 10/07/20 14:23 Last Admin: 10/07/20 14:50 Dose: 4 mg Documented by: Quetiapine Fumarate (Seroquel) 25 mg PO BEDTIME [facility] Warfarin Sodium (Coumadin) 5 mg PO 10/08/20@0930 [facility] Stop: 10/08/20 09:31 Last Admin: 10/08/20 10:40 Dose: 5 mg Documented by: Warfarin Sodium (Coumadin) 1 mg PO 10/09/20@1400 [facility] Stop: 10/09/20 16:00 Last Admin: 10/09/20 15:26 Dose: 1 mg Documented by: Warfarin Sodium (Coumadin) 2.5 mg PO 10/10/20@1400 [facility] Stop: 10/10/20 15:00 Last Admin: 10/10/20 13:22 Dose: 2.5 mg Documented by: Warfarin Sodium (Coumadin) 1 mg PO 10/11/20@1400 [facility] Stop: 10/11/20 16:00 Last Admin: 10/11/20 17:55 Dose: 1 mg Documented by: - Exam Quality Assessment: Supplemental Oxygen General: Mild Distress. No: Alert, Oriented Lungs: Decreased Breath Sounds, Crackles. No: Clear to Auscultation Cardiovascular: Regular Rate, Regular Rhythm GI/Abdominal Exam: Normal Bowel Sounds, Soft, Non-Tender Sepsis Event Note - Evaluation Sepsis Screening Result: Severe Sepsis Risk - Focused Exam Vital Signs: Vital Signs Temp Pulse Pulse Resp BP BP Pulse Ox 10/13/20 09:27 96 150/85 H 10/13/20 09:26 96 150/85 H 10/13/20 09:24 36.5 C 106 H 20 150/85 H 93 L 10/13/20 03:30 36.6 C 105 H 20 126/76 97 10/12/20 23:33 36.7 C 96 18 136/73 95 - Problem List & Annotations (1) Lewy body dementia SNOMED Code(s): 001743900 Code(s): G31.83 - DEMENTIA WITH LEWY BODIES; F02.80 - DEMENTIA IN OTH DISEASES CLASSD ELSWHR W/O BEHAVRL DISTURB Status: Acute Current Visit: Yes (2) COVID-19 SNOMED Code(s): 906428293 Code(s): U07.1 - COVID-19 Status: Acute Current Visit: Yes (3) Atrial fibrillation with RVR SNOMED Code(s): 797395766021403 Code(s): I48.91 - UNSPECIFIED ATRIAL FIBRILLATION Status: Acute Priority: High Current Visit: No (4) Anticoagulant long-term use SNOMED Code(s): 332098385 Code(s): Z79.01 - GROUP HOME (CURRENT) USE OF ANTICOAGULANTS Status: Chronic Current Visit: No (5) Fibrillation, atrial SNOMED Code(s): 08655280 Code(s): I48.91 - UNSPECIFIED ATRIAL FIBRILLATION Status: Chronic Priority: High Current Visit: No Qualifiers: Atrial fibrillation type: chronic (6) Hypercholesteremia SNOMED Code(s): 09251528 Code(s): E78.0 - PURE HYPERCHOLESTEROLEMIA * DO NOT USE * Status: Chronic Current Visit: No (7) Hypothyroid SNOMED Code(s): 40912430 Code(s): E03.9 - HYPOTHYROIDISM, UNSPECIFIED Status: Chronic Current Visit: No Qualifiers: Hypothyroidism type: unspecified Qualified Code(s): E03.9 - Hypothyroidism, unspecified (8) Supratherapeutic INR SNOMED Code(s): 392561120 Code(s): R79.1 - ABNORMAL COAGULATION PROFILE Status: Acute Current Visit: Yes - Problem List Review Problem List Initiated/Reviewed/Updated: Yes - My Orders Last 24 Hours: My Active Orders 10/12/20 13:28 UA RFX YONY AND CULT IF INDIC [URIN] Routine 10/12/20 13:30 dexAMETHasone [Decadron] 6 mg IVPUSH Q24H 10/13/20 11:18 Magnesium Sulfate 2 GM in Water @ 50 MLS/HR(50ml) Magnesium Sulfate/Water [Magnesium Sulfate in Water Premix] 2 gm in 50 ml IV ONETIME 10/14/20 05:11 CBC WITH AUTO DIFF [HEME] AM CMP [COMPREHENSIVE METABOLIC PN,CMP] [CHEM] AM MAGNESIUM [CHEM] AM PHOSPHORUS [CHEM] AM - Plan Plan:: 69-year-old gentleman Covid positive without respiratory symptoms was admitted with pneumonia body dementia with significant decline and failure to thrive over the last 5 days. 1. A. fib with RVR: Resolved remains on anticoagulation., start PO Cardizem, stop metoprolol as patient is on atenolol CTA noted Continue daily INRs, supra-therapeutic today, pharmacy asked for Coumadin dosing, hold todays dose 2. Failure to thrive: PO intake of food and meds limited, cont IV fluids for now, no bowel movement since , will obtain Xray abdomen, CXR chest 3. Covid positive: Satting 92- 93% on2Lts. cont Levaquin for PNA, cont Remdesivir, cont dexamethasone. Oxygen as needed to keep o2>92 %, Tylenol for fevers. 4. GABBY: resolved, avoid nephrotoxic agents, renally dose antibiotics, continue to hydrate p.o cont fluids as PO intake has been limited 5. Supra-therapeutic INR: hold coumadin, no active bleeding, PO vit K GI prophylaxis 40 IV pantoprazole daily, SCDs and Coumadin for DVT prophylaxis, Zofran for nausea, heart healthy diet
[2020-10-13] MEDS: Levofloxacin/Dextrose 5%-Water 750 MG in Premix Bag 1 BAG IV SCH (12:41)
[2020-10-13] MEDS: Dexamethasone 10 MG/ML SDV IVPUSH SCH (13:19)
[2020-10-13] MEDS ORDERED: Warfarin 5 MG Tab PO SCH (14:00)
--- NOTE | 2020-10-13 15:29 | CR ---
INDICATION: Abdominal distention. COMPARISON: None. TECHNIQUE: Two supine views of the abdomen. IMPRESSION: Nonobstructive bowel gas pattern. Subcutaneous edema. Lung opacities better seen on chest x-ray. Degenerative changes in the spine. Dictated by Shaquille Wells MD @ Oct 13 2020 3:24PM Signed by Dr. Shaquille Wells @ Oct 13 2020 3:28PM
--- NOTE | 2020-10-13 15:33 | CR ---
INDICATION: Hypoxia. COVID positive. COMPARISON: 10/07/2020. TECHNIQUE: Chest single view. FINDINGS: Cardiac silhouette is top-normal in size, similar to prior. Atherosclerotic aorta is again noted. Extensive bilateral airspace opacities. No pleural effusion or pneumothorax. Degenerative changes in the spine and shoulders. IMPRESSION: Bilateral airspace opacities which could be due to infection such as COVID-19. Dictated by Shaquille Wells MD @ Oct 13 2020 3:24PM Signed by Dr. Shaquille Wells @ Oct 13 2020 3:31PM
[2020-10-13] MEDS: Levothyroxine 25 MCG Tab PO SCH (20:41)
[2020-10-13] MEDS: Melatonin 3 MG Tab PO SCH (20:42)
[2020-10-13] MEDS: Montelukast 10 MG Tab PO SCH (20:42)
[2020-10-13] MEDS: Simvastatin 20 MG Tab PO SCH (20:43)
[2020-10-14] MEDS: Carbidopa/Levodopa 25-100 MG Tab PO SCH ×4 (05:26→22:05)
[2020-10-14] MEDS: Phosphorus #1 250 MG Tab PO SCH ×4 (05:26→17:39)
[2020-10-14 06:50] LABS: BLOOD UREA NITROGEN,BUN 21 mg/dL (7.0-18.0); CARBON DIOXIDE,CO2 23.3 mmol/L (21.0-32.0); CHLORIDE,CL 107 mmol/L (98-107); GLUCOSE RANDOM 125 mg/dL (74-106); POTASSIUM,K 3.6 mmol/L (3.5-5.1); SODIUM,NA 142 mmol/L (136-148)
[2020-10-14] MEDS ORDERED: Magnesium Sulfate/Water 2 GM/50 ML BAG IV ONE (08:16)
--- NOTE | 2020-10-14 08:20 | PCM.PN ---
- General Info Date of Service: 10/14/20 Admission Dx/Problem (Free Text): Admission Diagnosis/Problem Admission Diagnosis/Problem Weakness Subjective Update: John Paul is alert this morning. Did did tell me he was sleeping and wanted left alone. Denies any pain. He has been refusing eating and drinking to nursing along with not taking his pills. Unable to obtain review of systems - Patient Data Vitals - Most Recent: Last Vital Signs Temp 97.1 F 10/14/20 03:28 Pulse 79 10/14/20 03:28 Resp 18 10/14/20 03:28 BP 143/75 H 10/14/20 03:28 Pulse Ox 95 10/14/20 03:28 Weight - Most Recent: 79.787 kg I&O - Last 24 Hours: Intake & Output 10/13/20 10/14/20 10/14/20 22:59 06:59 14:59 Intake Total 50 270 Output Total 320 405 Balance -270 -135 Lab Results Last 24 Hours: Laboratory Results - last 24 hr 10/13/20 10/13/20 10/14/20 Range/Units 06:15 16:55 06:00 WBC (4.0-11.0) K/uL RBC (4.50-5.90) M/uL Hgb (13.0-17.0) g/dL Hct (38.0-50.0) % MCV (80.0-98.0) fL MCH (27.0-32.0) pg MCHC (31.0-37.0) g/dL RDW Std Deviation (28.0-62.0) fl RDW Coeff of Dano (11.0-15.0) % Plt Count (150-400) K/uL MPV (7.40-12.00) fL Neut % (Auto) (48.0-80.0) % Lymph % (Auto) (16.0-40.0) % Wise % (Auto) (0.0-15.0) % Eos % (Auto) (0.0-7.0) % Baso % (Auto) (0.0-1.5) % Neut # (Auto) (1.4-5.7) K/uL Lymph # (Auto) (0.6-2.4) K/uL Wise # (Auto) (0.0-0.8) K/uL Eos # (Auto) (0.0-0.7) K/uL Baso # (Auto) (0.0-0.1) K/uL Nucleated RBC % /100WBC Nucleated RBCs # K/uL INR 2.19 Sodium (136-148) mmol/L Potassium (3.5-5.1) mmol/L Chloride (98-107) mmol/L Carbon Dioxide (21.0-32.0) mmol/L BUN (7.0-18.0) mg/dL Creatinine (0.8-1.3) mg/dL Est Cr Clr Drug Dosing mL/min Estimated GFR (MDRD) ml/min Glucose (74-106) mg/dL Calcium (8.5-10.1) mg/dL Phosphorus (2.6-4.7) mg/dL Magnesium (1.8-2.4) mg/dL Total Bilirubin (0.2-1.0) mg/dL AST (15-37) IU/L ALT (14-63) IU/L Alkaline Phosphatase (46-116) U/L Total Protein (6.4-8.2) g/dL Albumin (3.4-5.0) g/dL Globulin (2.6-4.0) g/dL Albumin/Globulin Ratio (0.9-1.6) Lipase 125 (73-393) U/L Urine Color YELLOW Urine Appearance CLEAR Urine pH 6.0 (5.0-8.0) Ur Specific [place] >= 1.030 (1.001-1.035) Urine Protein NEGATIVE (NEGATIVE) mg/dL Urine Glucose (UA) NEGATIVE (NEGATIVE) mg/dL Urine Ketones 15 H (NEGATIVE) mg/dL Urine Occult Blood LARGE H (NEGATIVE) Urine Nitrite NEGATIVE (NEGATIVE) Urine Bilirubin NEGATIVE (NEGATIVE) Urine Urobilinogen 0.2 (<2.0) EU/dL Ur Leukocyte Esterase NEGATIVE (NEGATIVE) Urine RBC 13-15 (0-2/HPF) Urine WBC 0-1 (0-5/HPF) Ur Epithelial Cells RARE (NONE-FEW) Urine Bacteria RARE (NEGATIVE) 10/14/20 10/14/20 Range/Units 06:00 06:00 WBC 3.22 L (4.0-11.0) K/uL RBC 2.70 L (4.50-5.90) M/uL Hgb 9.6 L (13.0-17.0) g/dL Hct 27.2 L (38.0-50.0) % MCV 100.7 H (80.0-98.0) fL MCH 35.6 H (27.0-32.0) pg MCHC 35.3 (31.0-37.0) g/dL RDW Std Deviation 50.5 (28.0-62.0) fl RDW Coeff of [place] 14 (11.0-15.0) % Plt Count 285 (150-400) K/uL MPV 9.40 (7.40-12.00) fL Neut % (Auto) 91.6 H (48.0-80.0) % Lymph % (Auto) 8.1 L (16.0-40.0) % Wise % (Auto) 0.3 (0.0-15.0) % Eos % (Auto) 0.0 (0.0-7.0) % Baso % (Auto) 0.0 (0.0-1.5) % Neut # (Auto) 3.0 (1.4-5.7) K/uL Lymph # (Auto) 0.3 L (0.6-2.4) K/uL Wise # (Auto) 0.0 (0.0-0.8) K/uL Eos # (Auto) 0.0 (0.0-0.7) K/uL Baso # (Auto) 0.0 (0.0-0.1) K/uL Nucleated RBC % 0.0 /100WBC Nucleated RBCs # 0 K/uL INR Sodium 142 (136-148) mmol/L Potassium 3.6 (3.5-5.1) mmol/L Chloride 107 (98-107) mmol/L Carbon Dioxide 23.3 (21.0-32.0) mmol/L BUN 21 H (7.0-18.0) mg/dL Creatinine 0.9 (0.8-1.3) mg/dL Est Cr Clr Drug Dosing 89.88 mL/min Estimated GFR (MDRD) > 60.0 ml/min Glucose 125 H (74-106) mg/dL Calcium 8.0 L (8.5-10.1) mg/dL Phosphorus 3.2 (2.6-4.7) mg/dL Magnesium 1.7 L (1.8-2.4) mg/dL Total Bilirubin 0.9 (0.2-1.0) mg/dL AST 43 H (15-37) IU/L ALT 17 (14-63) IU/L Alkaline Phosphatase 46 (46-116) U/L Total Protein 5.6 L (6.4-8.2) g/dL Albumin 2.2 L (3.4-5.0) g/dL Globulin 3.4 (2.6-4.0) g/dL Albumin/Globulin Ratio 0.7 L (0.9-1.6) Lipase (73-393) U/L Urine Color Urine Appearance Urine pH (5.0-8.0) Ur Specific [place] (1.001-1.035) Urine Protein (NEGATIVE) mg/dL Urine Glucose (UA) (NEGATIVE) mg/dL Urine Ketones (NEGATIVE) mg/dL Urine Occult Blood (NEGATIVE) Urine Nitrite (NEGATIVE) Urine Bilirubin (NEGATIVE) Urine Urobilinogen (<2.0) EU/dL Ur Leukocyte Esterase (NEGATIVE) Urine RBC (0-2/HPF) Urine WBC (0-5/HPF) Ur Epithelial Cells (NONE-FEW) Urine Bacteria (NEGATIVE) Med Orders - Current: Current Medications Acetaminophen (Tylenol) 650 mg PO Q6H PRN PRN Reason: fever/pain Last Admin: 10/10/20 13:16 Dose: 650 mg Documented by: Atenolol (Tenormin) 50 mg PO DAILY [facility] Last Admin: 10/13/20 09:27 Dose: 50 mg Documented by: Carbidopa/Levodopa (Sinemet 25-100 Mg) 1 tab PO TID [facility] Last Admin: 10/14/20 05:26 Dose: 1 tab Documented by: Dexamethasone (Decadron) 6 mg IVPUSH Q24H [facility] Last Admin: 10/13/20 13:19 Dose: 6 mg Documented by: Diltiazem HCl (Diltiazem) 10 mg IVPUSH Q3H PRN PRN Reason: HR above 110 Last Admin: 10/08/20 20:33 Dose: 10 mg Documented by: Diltiazem HCl (Cardizem Cd) 120 mg PO DAILY [facility] Last Admin: 10/13/20 09:26 Dose: 120 mg Documented by: Pantoprazole Sodium 40 mg/ (Sodium Chloride) 10 mls @ 300 mls/hr IV DAILY [facility] Last Admin: 10/13/20 09:28 Dose: 300 mls/hr Documented by: Levofloxacin/Dextrose 750 mg/ (Premix) 150 mls @ 100 mls/hr IV Q24H [facility] Last Admin: 10/13/20 12:41 Dose: 100 mls/hr Documented by: Magnesium Sulfate (Magnesium Sulfate In Water Premix) 2 gm in 50 mls @ 50 mls/hr IV ONETIME ONE Stop: 10/14/20 09:15 Levothyroxine Sodium (Levothyroxine) 25 mcg PO BEDTIME [facility] Last Admin: 10/13/20 20:41 Dose: 25 mcg Documented by: Melatonin (Melatonin) 6 mg PO BEDTIME [facility] Last Admin: 10/13/20 20:42 Dose: 6 mg Documented by: Montelukast Sodium (Singulair) 10 mg PO BEDTIME [facility] Last Admin: 10/13/20 20:42 Dose: 10 mg Documented by: Ondansetron HCl (Zofran Odt) 4 mg PO Q4H PRN PRN Reason: nausea, able to take PO Rivastigmine 3 Mg 1 each PO BID [facility] Last Admin: 10/13/20 20:43 Dose: 1 each Documented by: Simvastatin (Zocor) 20 mg PO BEDTIME [facility] Last Admin: 10/13/20 20:43 Dose: 20 mg Documented by: Sodium Phosphate (Neutra-Phos) 250 mg PO QID [facility] Last Admin: 10/14/20 05:26 Dose: 250 mg Documented by: Warfarin Sodium (Coumadin Ask) 1 each PO DAILY@1400 [facility] Last Admin: 10/13/20 13:00 Dose: Not Given Documented by: Discontinued Medications Dexamethasone (Dexamethasone) 6 mg PO DAILY [facility] Stop: 10/18/20 18:31 Last Admin: 10/12/20 09:13 Dose: Not Given Documented by: Digoxin (Lanoxin) 250 mcg IVPUSH ONETIME ONE Stop: 10/07/20 22:51 Last Admin: 10/08/20 00:31 Dose: 250 mcg Documented by: Diltiazem HCl (Diltiazem) 10 mg IVPUSH ONETIME ONE Stop: 10/07/20 21:32 Last Admin: 10/07/20 22:10 Dose: 10 mg Documented by: Diltiazem HCl (Diltiazem) 10 mg IVPUSH ONETIME ONE Stop: 10/07/20 22:51 Last Admin: 10/07/20 23:12 Dose: 10 mg Documented by: Haloperidol Lactate (Haldol) 2 mg IM ONETIME ONE Stop: 10/10/20 21:44 Last Admin: 10/10/20 22:16 Dose: 2 mg Documented by: Sodium Chloride (Normal Saline) 1,000 mls @ 999 mls/hr IV .BOLUS ONE Stop: 10/07/20 14:51 Last Admin: 10/07/20 14:12 Dose: 999 mls/hr Documented by: Sodium Chloride (Normal Saline) 1,000 mls @ 125 mls/hr IV ASDIRECTED [facility] Sodium Chloride (Normal Saline) 1,000 mls @ 150 mls/hr IV ASDIRECTED ONE Stop: 10/08/20 01:09 Last Admin: 10/07/20 18:43 Dose: 125 mls/hr Documented by: Sodium Chloride (Normal Saline) 1,000 mls @ 150 mls/hr IV ASDIRECTED [facility] Last Admin: 10/11/20 03:57 Dose: 150 mls/hr Documented by: Levofloxacin/Dextrose 750 mg/ (Premix) 150 mls @ 100 mls/hr IV Q24H [facility] Last Admin: 10/10/20 12:57 Dose: Not Given Documented by: Remdesivir 200 mg/ Sodium (Chloride) 250 mls @ 250 mls/hr IV ONETIME ONE Stop: 10/08/20 18:30 Last Admin: 10/08/20 20:50 Dose: 250 mls/hr Documented by: Remdesivir 100 mg/ Sodium (Chloride) 100 mls @ 100 mls/hr IV Q24H [facility] Stop: 10/12/20 19:29 Remdesivir 100 mg/ Sodium (Chloride) 100 mls @ 100 mls/hr IV Q24H [facility] Stop: 10/12/20 21:59 Last Admin: 10/12/20 20:29 Dose: 100 mls/hr Documented by: Magnesium Sulfate (Magnesium Sulfate In Water Premix) 2 gm in 50 mls @ 50 mls/hr IV ONETIME ONE Stop: 10/10/20 07:01 Last Admin: 10/10/20 06:37 Dose: 50 mls/hr Documented by: Potassium Phosphate 30 mmole/ (Sodium Chloride) 510 mls @ 127.5 mls/hr IV ONETIME ONE Stop: 10/10/20 11:59 Last Admin: 10/10/20 08:06 Dose: 127.5 mls/hr Documented by: Magnesium Sulfate (Magnesium Sulfate In Water Premix) 2 gm in 50 mls @ 50 mls/hr IV ONETIME ONE Stop: 10/11/20 09:12 Last Admin: 10/11/20 09:16 Dose: 50 mls/hr Documented by: Sodium Chloride (Normal Saline) 1,000 mls @ 100 mls/hr IV Q10H [facility] Last Admin: 10/13/20 12:53 Dose: 100 mls/hr Documented by: Magnesium Sulfate (Magnesium Sulfate In Water Premix) 2 gm in 50 mls @ 50 mls/hr IV ONETIME ONE Stop: 10/13/20 12:17 Last Admin: 10/13/20 11:34 Dose: 50 mls/hr Documented by: Iopamidol (Isovue Multipack-370 (76%)) 80 ml IVPUSH ONETIME STA Stop: 10/08/20 15:33 Last Admin: 10/08/20 15:33 Dose: 80 ml Documented by: Ketorolac Tromethamine (Toradol) 30 mg IVPUSH ONETIME ONE Stop: 10/11/20 18:20 Last Admin: 10/11/20 18:47 Dose: 30 mg Documented by: Ketorolac Tromethamine (Toradol) 15 mg IVPUSH ONETIME ONE Stop: 10/12/20 15:01 Last Admin: 10/12/20 14:10 Dose: 15 mg Documented by: Lorazepam (Ativan) 1 mg IVPUSH ONETIME ONE Stop: 10/07/20 23:20 Last Admin: 10/07/20 23:38 Dose: 1 mg Documented by: Lorazepam (Ativan) 0.5 mg IVPUSH ONETIME ONE Stop: 10/08/20 03:23 Last Admin: 10/08/20 16:27 Dose: Not Given Documented by: Lorazepam (Ativan) 2 mg IVPUSH Q6H PRN PRN Reason: Agitation Last Admin: 10/11/20 14:28 Dose: 2 mg Documented by: Lorazepam (Ativan) 1 mg IVPUSH ONETIME ONE Stop: 10/10/20 21:45 Last Admin: 10/10/20 22:16 Dose: 1 mg Documented by: Metoprolol Succinate (Toprol Xl) 50 mg PO DAILY [facility] Last Admin: 10/09/20 10:39 Dose: 50 mg Documented by: Ondansetron HCl (Zofran) 4 mg IVPUSH ONETIME ONE Stop: 10/07/20 14:23 Last Admin: 10/07/20 14:50 Dose: 4 mg Documented by: Phytonadione (Aquamephyton) 5 mg PO ONETIME ONE Stop: 10/13/20 13:53 Last Admin: 10/13/20 14:24 Dose: 5 mg Documented by: Quetiapine Fumarate (Seroquel) 25 mg PO BEDTIME [facility] Warfarin Sodium (Coumadin) 5 mg PO 10/08/20@0930 [facility] Stop: 10/08/20 09:31 Last Admin: 10/08/20 10:40 Dose: 5 mg Documented by: Warfarin Sodium (Coumadin) 1 mg PO 10/09/20@1400 [facility] Stop: 10/09/20 16:00 Last Admin: 10/09/20 15:26 Dose: 1 mg Documented by: Warfarin Sodium (Coumadin) 2.5 mg PO 10/10/20@1400 [facility] Stop: 10/10/20 15:00 Last Admin: 10/10/20 13:22 Dose: 2.5 mg Documented by: Warfarin Sodium (Coumadin) 1 mg PO 10/11/20@1400 [facility] Stop: 10/11/20 16:00 Last Admin: 10/11/20 17:55 Dose: 1 mg Documented by: - Exam Quality Assessment: Supplemental Oxygen, DVT Prophylaxis General: Alert, No Acute Distress. No: Cooperative Lungs: Decreased Breath Sounds, Crackles (Bibasilar) Cardiovascular: Regular Rate, Regular Rhythm GI/Abdominal Exam: Normal Bowel Sounds, Soft, Non-Tender Back Exam: Normal Inspection, Full Range of Motion Extremities: Normal Inspection, Normal Range of Motion, Non-Tender, Other (As some generalized puffiness noted to legs and hands.) Neurological: No New Focal Deficit Psy/Mental Status: Alert, Normal Affect, Normal Mood Sepsis Event Note - Evaluation Sepsis Screening Result: Severe Sepsis Risk - Focused Exam Vital Signs: Vital Signs Temp Pulse Resp BP Pulse Ox 10/14/20 03:28 97.1 F 79 18 143/75 H 95 10/13/20 23:13 97.8 F 85 18 149/82 H 97 - Problem List & Annotations (1) COVID-19 SNOMED Code(s): 008635441 Code(s): U07.1 - COVID-19 Status: Acute Current Visit: Yes (2) Lewy body dementia SNOMED Code(s): 945768090 Code(s): G31.83 - DEMENTIA WITH LEWY BODIES; F02.80 - DEMENTIA IN OTH DISEASES CLASSD ELSWHR W/O BEHAVRL DISTURB Status: Chronic Current Visit: Yes (3) Supratherapeutic INR SNOMED Code(s): 557981643 Code(s): R79.1 - ABNORMAL COAGULATION PROFILE Status: Acute Current Visit: Yes (4) Atrial fibrillation with RVR SNOMED Code(s): 557050033950515 Code(s): I48.91 - UNSPECIFIED ATRIAL FIBRILLATION Status: Acute Priority: High Current Visit: No (5) Anticoagulant long-term use SNOMED Code(s): 022298335 Code(s): Z79.01 - LONGTERM (CURRENT) USE OF ANTICOAGULANTS Status: Chronic Current Visit: No (6) Hypercholesteremia SNOMED Code(s): 36563586 Code(s): E78.0 - PURE HYPERCHOLESTEROLEMIA * DO NOT USE * Status: Chronic Current Visit: No (7) Hypothyroid SNOMED Code(s): 94096087 Code(s): E03.9 - HYPOTHYROIDISM, UNSPECIFIED Status: Chronic Current Visit: No Qualifiers: Hypothyroidism type: unspecified Qualified Code(s): E03.9 - Hypothyroidism, unspecified - Problem List Review Problem List Initiated/Reviewed/Updated: Yes - My Orders Last 24 Hours: My Active Orders 10/14/20 08:16 Magnesium Sulfate 2 GM in Water @ 50 MLS/HR(50ml) Magnesium Sulfate/Water [Magnesium Sulfate in Water Premix] 2 gm in 50 ml IV ONETIME - Plan Plan:: 69-year-old gentleman Covid positive without respiratory symptoms was admitted with pneumonia body dementia with significant decline and failure to thrive over the last 5 days. 1. A. fib: Continue Coumadin, INR supratherapeutic but has improved today after vitamin K. -Continue atenolol as well as diltiazem Continue daily INRs -Monitor and replete electrolytes as needed 2. Failure to thrive: PO intake of food and meds limited -Did discuss with NERY Ardon nephew, regarding John Paul not eating and drinking and refusing medications. We did discuss goals of care and he would like to see lucian rodriguez the next few days bring and considering palliative care at that time. 3. Covid positive: Satting 92- 93% on2Lts. - cont Levaquin for PNA, - completed Remdesivir - cont dexamethasone. - Oxygen as needed to keep o2>92 % - Tylenol for fevers. -Unable to meaningfully use I-S Acapella or prone. 4. Lewy body dementia -Continue rivastigmine as well as carbidopa levodopa VTE prophylaxis: Coumadin GI prophylaxis: Protonix Dispo: Pending placement
[2020-10-14] MEDS: Pantoprazole 40 MG in Sodium Chloride 0.9% 10 ML IV SCH (09:44)
[2020-10-14] MEDS: Atenolol 50 MG Tab PO SCH ×2 (09:45→10:59)
[2020-10-14] MEDS: Diltiazem 120 MG Cap.CD PO SCH ×2 (09:46→10:59)
[2020-10-14] MEDS: RIVASTIGMINE 3 MG PO SCH ×4 (09:47→20:57)
[2020-10-14] MEDS: Levofloxacin/Dextrose 5%-Water 750 MG in Premix Bag 1 BAG IV SCH (11:39)
[2020-10-14] MEDS ORDERED: Warfarin 2.5 MG Tab PO SCH (14:00)
[2020-10-14] MEDS: Dexamethasone 10 MG/ML SDV IVPUSH SCH (14:03)
[2020-10-14] MEDS: Melatonin 3 MG Tab PO SCH ×2 (20:24→20:58)
[2020-10-14] MEDS: Levothyroxine 25 MCG Tab PO SCH ×2 (20:25→20:58)
[2020-10-14] MEDS: Simvastatin 20 MG Tab PO SCH ×2 (20:25→20:58)
[2020-10-14] MEDS: Montelukast 10 MG Tab PO SCH ×2 (20:25→20:58)
[2020-10-15] MEDS: Phosphorus #1 250 MG Tab PO SCH ×4 (00:08→17:14)
[2020-10-15 06:40] LABS: BLOOD UREA NITROGEN,BUN 21 mg/dL (7.0-18.0); CARBON DIOXIDE,CO2 25.9 mmol/L (21.0-32.0); CHLORIDE,CL 105 mmol/L (98-107); GLUCOSE RANDOM 119 mg/dL (74-106); POTASSIUM,K 3.6 mmol/L (3.5-5.1); SODIUM,NA 140 mmol/L (136-148)
[2020-10-15] MEDS: Carbidopa/Levodopa 25-100 MG Tab PO SCH ×3 (06:56→21:47)
[2020-10-15] MEDS ORDERED: Magnesium Sulfate/Water 2 GM/50 ML BAG IV ONE (07:53)
--- NOTE | 2020-10-15 07:57 | PCM.PN ---
- General Info Date of Service: 10/15/20 Admission Dx/Problem (Free Text): Admission Diagnosis/Problem Admission Diagnosis/Problem Weakness Subjective Update: Reports he has a headache this morning and is asking for Tylenol. I attempted to talk to him about food and he said he was hungry and would like to try dry cereal with milk, any kind. I updated Nurse. he denies any chest pain or SOB. Functional Status: Denies: Pain Controlled, Tolerating Diet - Review of Systems General: Reports: Weakness, Fatigue, Malaise HEENT: Reports: Headaches Pulmonary: Reports: No Symptoms. Denies: Shortness of Breath Cardiovascular: Reports: No Symptoms. Denies: Chest Pain Gastrointestinal: Reports: No Symptoms. Denies: Abdominal Pain, Nausea, Vomiting Genitourinary: Reports: No Symptoms. Denies: Dysuria, Frequency Musculoskeletal: Reports: No Symptoms Skin: Reports: No Symptoms Neurological: Reports: No Symptoms Psychiatric: Reports: No Symptoms - Patient Data Vitals - Most Recent: Last Vital Signs Temp 97.5 F 10/15/20 04:45 Pulse 90 10/15/20 04:45 Resp 16 10/15/20 04:45 BP 113/72 10/15/20 04:45 Pulse Ox 92 L 10/15/20 04:45 Weight - Most Recent: 79.787 kg I&O - Last 24 Hours: Intake & Output 10/14/20 10/15/20 10/15/20 22:59 06:59 14:59 Intake Total 0 200 Output Total 0 1000 Balance 0 -800 Lab Results Last 24 Hours: Laboratory Results - last 24 hr 10/15/20 10/15/20 10/15/20 Range/Units 06:06 06:06 06:06 WBC 4.07 (4.0-11.0) K/uL RBC 2.59 L (4.50-5.90) M/uL Hgb 9.8 L (13.0-17.0) g/dL Hct 25.9 L (38.0-50.0) % MCV 100.0 H (80.0-98.0) fL MCH 37.8 H (27.0-32.0) pg MCHC 37.8 H (31.0-37.0) g/dL RDW Std Deviation 42.4 (28.0-62.0) fl RDW Coeff of [place] 13 (11.0-15.0) % Plt Count 280 (150-400) K/uL MPV 9.70 (7.40-12.00) fL Neut % (Auto) 93.2 H (48.0-80.0) % Lymph % (Auto) 6.4 L (16.0-40.0) % [place] % (Auto) 0.2 (0.0-15.0) % Eos % (Auto) 0.0 (0.0-7.0) % Baso % (Auto) 0.2 (0.0-1.5) % Neut # (Auto) 3.8 (1.4-5.7) K/uL Lymph # (Auto) 0.3 L (0.6-2.4) K/uL [place] # (Auto) 0.0 (0.0-0.8) K/uL Eos # (Auto) 0.0 (0.0-0.7) K/uL Baso # (Auto) 0.0 (0.0-0.1) K/uL INR 1.45 Sodium 140 (136-148) mmol/L Potassium 3.6 (3.5-5.1) mmol/L Chloride 105 (98-107) mmol/L Carbon Dioxide 25.9 (21.0-32.0) mmol/L BUN 21 H (7.0-18.0) mg/dL Creatinine 0.8 (0.8-1.3) mg/dL Est Cr Clr Drug Dosing 101.12 mL/min Estimated GFR (MDRD) > 60.0 ml/min Glucose 119 H (74-106) mg/dL Calcium 8.2 L (8.5-10.1) mg/dL Phosphorus 3.6 (2.6-4.7) mg/dL Magnesium 1.7 L (1.8-2.4) mg/dL Med Orders - Current: Current Medications Acetaminophen (Tylenol) 650 mg PO Q6H PRN PRN Reason: fever/pain Last Admin: 10/10/20 13:16 Dose: 650 mg Documented by: Atenolol (Tenormin) 50 mg PO DAILY [facility] Last Admin: 10/14/20 10:59 Dose: Not Given Documented by: Carbidopa/Levodopa (Sinemet 25-100 Mg) 1 tab PO TID [facility] Last Admin: 10/15/20 06:56 Dose: Not Given Documented by: Dexamethasone (Decadron) 6 mg IVPUSH Q24H [facility] Last Admin: 10/14/20 14:03 Dose: 6 mg Documented by: Diltiazem HCl (Diltiazem) 10 mg IVPUSH Q3H PRN PRN Reason: HR above 110 Last Admin: 10/08/20 20:33 Dose: 10 mg Documented by: Diltiazem HCl (Cardizem Cd) 120 mg PO DAILY [facility] Last Admin: 10/14/20 10:59 Dose: Not Given Documented by: Pantoprazole Sodium 40 mg/ (Sodium Chloride) 10 mls @ 300 mls/hr IV DAILY [facility] Last Admin: 10/14/20 09:44 Dose: 300 mls/hr Documented by: Levofloxacin/Dextrose 750 mg/ (Premix) 150 mls @ 100 mls/hr IV Q24H [facility] Last Admin: 10/14/20 11:39 Dose: 100 mls/hr Documented by: Magnesium Sulfate (Magnesium Sulfate In Water Premix) 2 gm in 50 mls @ 50 mls/hr IV ONETIME ONE Stop: 10/15/20 08:52 Levothyroxine Sodium (Levothyroxine) 25 mcg PO BEDTIME [facility] Last Admin: 10/14/20 20:58 Dose: Not Given Documented by: Melatonin (Melatonin) 6 mg PO BEDTIME [facility] Last Admin: 10/14/20 20:58 Dose: Not Given Documented by: Montelukast Sodium (Singulair) 10 mg PO BEDTIME [facility] Last Admin: 10/14/20 20:58 Dose: Not Given Documented by: Ondansetron HCl (Zofran Odt) 4 mg PO Q4H PRN PRN Reason: nausea, able to take PO Rivastigmine 3 Mg 1 each PO BID [facility] Last Admin: 10/14/20 20:57 Dose: Not Given Documented by: Simvastatin (Zocor) 20 mg PO BEDTIME [facility] Last Admin: 10/14/20 20:58 Dose: Not Given Documented by: Sodium Phosphate (Neutra-Phos) 250 mg PO QID [facility] Last Admin: 10/15/20 06:56 Dose: Not Given Documented by: Warfarin Sodium (Coumadin Ask) 1 each PO DAILY@1400 [facility] Last Admin: 10/14/20 14:56 Dose: Not Given Documented by: Discontinued Medications Dexamethasone (Dexamethasone) 6 mg PO DAILY [facility] Stop: 10/18/20 18:31 Last Admin: 10/12/20 09:13 Dose: Not Given Documented by: Digoxin (Lanoxin) 250 mcg IVPUSH ONETIME ONE Stop: 10/07/20 22:51 Last Admin: 10/08/20 00:31 Dose: 250 mcg Documented by: Diltiazem HCl (Diltiazem) 10 mg IVPUSH ONETIME ONE Stop: 10/07/20 21:32 Last Admin: 10/07/20 22:10 Dose: 10 mg Documented by: Diltiazem HCl (Diltiazem) 10 mg IVPUSH ONETIME ONE Stop: 10/07/20 22:51 Last Admin: 10/07/20 23:12 Dose: 10 mg Documented by: Haloperidol Lactate (Haldol) 2 mg IM ONETIME ONE Stop: 10/10/20 21:44 Last Admin: 10/10/20 22:16 Dose: 2 mg Documented by: Sodium Chloride (Normal Saline) 1,000 mls @ 999 mls/hr IV .BOLUS ONE Stop: 10/07/20 14:51 Last Admin: 10/07/20 14:12 Dose: 999 mls/hr Documented by: Sodium Chloride (Normal Saline) 1,000 mls @ 125 mls/hr IV ASDIRECTED [facility] Sodium Chloride (Normal Saline) 1,000 mls @ 150 mls/hr IV ASDIRECTED ONE Stop: 10/08/20 01:09 Last Admin: 10/07/20 18:43 Dose: 125 mls/hr Documented by: Sodium Chloride (Normal Saline) 1,000 mls @ 150 mls/hr IV ASDIRECTED [facility] Last Admin: 10/11/20 03:57 Dose: 150 mls/hr Documented by: Levofloxacin/Dextrose 750 mg/ (Premix) 150 mls @ 100 mls/hr IV Q24H [facility] Last Admin: 10/10/20 12:57 Dose: Not Given Documented by: Remdesivir 200 mg/ Sodium (Chloride) 250 mls @ 250 mls/hr IV ONETIME ONE Stop: 10/08/20 18:30 Last Admin: 10/08/20 20:50 Dose: 250 mls/hr Documented by: Remdesivir 100 mg/ Sodium (Chloride) 100 mls @ 100 mls/hr IV Q24H [facility] Stop: 10/12/20 19:29 Remdesivir 100 mg/ Sodium (Chloride) 100 mls @ 100 mls/hr IV Q24H [facility] Stop: 10/12/20 21:59 Last Admin: 10/12/20 20:29 Dose: 100 mls/hr Documented by: Magnesium Sulfate (Magnesium Sulfate In Water Premix) 2 gm in 50 mls @ 50 mls/hr IV ONETIME ONE Stop: 10/10/20 07:01 Last Admin: 10/10/20 06:37 Dose: 50 mls/hr Documented by: Potassium Phosphate 30 mmole/ (Sodium Chloride) 510 mls @ 127.5 mls/hr IV ONETIME ONE Stop: 10/10/20 11:59 Last Admin: 10/10/20 08:06 Dose: 127.5 mls/hr Documented by: Magnesium Sulfate (Magnesium Sulfate In Water Premix) 2 gm in 50 mls @ 50 mls/hr IV ONETIME ONE Stop: 10/11/20 09:12 Last Admin: 10/11/20 09:16 Dose: 50 mls/hr Documented by: Sodium Chloride (Normal Saline) 1,000 mls @ 100 mls/hr IV Q10H [facility] Last Admin: 10/13/20 12:53 Dose: 100 mls/hr Documented by: Magnesium Sulfate (Magnesium Sulfate In Water Premix) 2 gm in 50 mls @ 50 mls/hr IV ONETIME ONE Stop: 10/13/20 12:17 Last Admin: 10/13/20 11:34 Dose: 50 mls/hr Documented by: Magnesium Sulfate (Magnesium Sulfate In Water Premix) 2 gm in 50 mls @ 50 mls/hr IV ONETIME ONE Stop: 10/14/20 09:15 Last Admin: 10/14/20 09:49 Dose: 50 mls/hr Documented by: Iopamidol (Isovue Multipack-370 (76%)) 80 ml IVPUSH ONETIME [facility] Stop: 10/08/20 15:33 Last Admin: 10/08/20 15:33 Dose: 80 ml Documented by: Ketorolac Tromethamine (Toradol) 30 mg IVPUSH ONETIME ONE Stop: 10/11/20 18:20 Last Admin: 10/11/20 18:47 Dose: 30 mg Documented by: Ketorolac Tromethamine (Toradol) 15 mg IVPUSH ONETIME ONE Stop: 10/12/20 15:01 Last Admin: 10/12/20 14:10 Dose: 15 mg Documented by: Lorazepam (Ativan) 1 mg IVPUSH ONETIME ONE Stop: 10/07/20 23:20 Last Admin: 10/07/20 23:38 Dose: 1 mg Documented by: Lorazepam (Ativan) 0.5 mg IVPUSH ONETIME ONE Stop: 10/08/20 03:23 Last Admin: 10/08/20 16:27 Dose: Not Given Documented by: Lorazepam (Ativan) 2 mg IVPUSH Q6H PRN PRN Reason: Agitation Last Admin: 10/11/20 14:28 Dose: 2 mg Documented by: Lorazepam (Ativan) 1 mg IVPUSH ONETIME ONE Stop: 10/10/20 21:45 Last Admin: 10/10/20 22:16 Dose: 1 mg Documented by: Metoprolol Succinate (Toprol Xl) 50 mg PO DAILY [facility] Last Admin: 10/09/20 10:39 Dose: 50 mg Documented by: Ondansetron HCl (Zofran) 4 mg IVPUSH ONETIME ONE Stop: 10/07/20 14:23 Last Admin: 10/07/20 14:50 Dose: 4 mg Documented by: Phytonadione (Aquamephyton) 5 mg PO ONETIME ONE Stop: 10/13/20 13:53 Last Admin: 10/13/20 14:24 Dose: 5 mg Documented by: Quetiapine Fumarate (Seroquel) 25 mg PO BEDTIME [facility] Warfarin Sodium (Coumadin) 5 mg PO 10/08/20@0930 [facility] Stop: 10/08/20 09:31 Last Admin: 10/08/20 10:40 Dose: 5 mg Documented by: Warfarin Sodium (Coumadin) 1 mg PO 10/09/20@1400 [facility] Stop: 10/09/20 16:00 Last Admin: 10/09/20 15:26 Dose: 1 mg Documented by: Warfarin Sodium (Coumadin) 2.5 mg PO 10/10/20@1400 [facility] Stop: 10/10/20 15:00 Last Admin: 10/10/20 13:22 Dose: 2.5 mg Documented by: Warfarin Sodium (Coumadin) 1 mg PO 10/11/20@1400 [facility] Stop: 10/11/20 16:00 Last Admin: 10/11/20 17:55 Dose: 1 mg Documented by: Warfarin Sodium (Coumadin) 2.5 mg PO 10/14/20@1400 [facility] Stop: 10/14/20 16:00 Last Admin: 10/14/20 14:56 Dose: 2.5 mg Documented by: - Exam General: Alert, Oriented, Cooperative (Is intermittently cooperative on second rounds he did not verbally respond to Dr. Hirsch.) Lungs: Decreased Breath Sounds Cardiovascular: Regular Rate, Regular Rhythm GI/Abdominal Exam: Normal Bowel Sounds, Soft, Non-Tender Extremities: Normal Inspection, Normal Range of Motion, Non-Tender, Pedal Edema (+1 non pitting edema) Wound/Incisions: Healing Well Neurological: No New Focal Deficit Psy/Mental Status: Alert, Normal Affect, Normal Mood Sepsis Event Note - Evaluation Sepsis Screening Result: No Definite Risk - Focused Exam Vital Signs: Vital Signs Temp Pulse Pulse Resp BP Pulse Ox 10/15/20 04:45 97.5 F 90 16 113/72 92 L 10/14/20 23:27 97.6 F 99 16 136/86 93 L 10/14/20 20:26 97.5 F 103 H 20 136/76 93 L - Problem List & Annotations (1) COVID-19 SNOMED Code(s): 644625902 Code(s): U07.1 - COVID-19 Status: Acute Current Visit: Yes (2) Lewy body dementia SNOMED Code(s): 399426396 Code(s): G31.83 - DEMENTIA WITH LEWY BODIES; F02.80 - DEMENTIA IN OTH DISEASES CLASSD ELSWHR W/O BEHAVRL DISTURB Status: Chronic Current Visit: Ye s (3) Supratherapeutic INR SNOMED Code(s): 358742722 Code(s): R79.1 - ABNORMAL COAGULATION PROFILE Status: Acute Current Visit: Yes (4) Atrial fibrillation with RVR SNOMED Code(s): 299884065780598 Code(s): I48.91 - UNSPECIFIED ATRIAL FIBRILLATION Status: Acute Priority: High Current Visit: No (5) Anticoagulant long-term use SNOMED Code(s): 093437039 Code(s): Z79.01 - HALF-WAY (CURRENT) USE OF ANTICOAGULANTS Status: Chronic Current Visit: No (6) Hypercholesteremia SNOMED Code(s): 72217230 Code(s): E78.0 - PURE HYPERCHOLESTEROLEMIA * DO NOT USE * Status: Chronic Current Visit: No (7) Hypothyroid SNOMED Code(s): 83617454 Code(s): E03.9 - HYPOTHYROIDISM, UNSPECIFIED Status: Chronic Current Visit: No Qualifiers: Hypothyroidism type: unspecified Qualified Code(s): E03.9 - Hypothyroidism, unspecified - Problem List Review Problem List Initiated/Reviewed/Updated: Yes - My Orders Last 24 Hours: My Active Orders 10/14/20 15:49 Consult to Spiritual Care [CONS] Routine 10/15/20 07:53 Magnesium Sulfate/Water [Magnesium Sulfate in Water Premix] 2 gm in 50 ml IV ONETIME 10/16/20 05:11 BASIC METABOLIC PANEL,BMP [CHEM] AM CBC WITH AUTO DIFF [HEME] AM MAGNESIUM [CHEM] AM PHOSPHORUS [CHEM] AM 10/17/20 05:11 BASIC METABOLIC PANEL,BMP [CHEM] AM CBC WITH AUTO DIFF [HEME] AM MAGNESIUM [CHEM] AM PHOSPHORUS [CHEM] AM 10/18/20 05:11 BASIC METABOLIC PANEL,BMP [CHEM] AM CBC WITH AUTO DIFF [HEME] AM MAGNESIUM [CHEM] AM PHOSPHORUS [CHEM] AM 10/19/20 05:11 BASIC METABOLIC PANEL,BMP [CHEM] AM CBC WITH AUTO DIFF [HEME] AM MAGNESIUM [CHEM] AM PHOSPHORUS [CHEM] AM - Plan Plan:: 69-year-old gentleman Covid positive without respiratory symptoms was admitted with pneumonia body dementia with significant decline and failure to thrive over the last 5 days. 1. A. fib: Continue Coumadin, INR supratherapeutic but has improved today after vitamin K. -Continue atenolol as well as diltiazem Continue daily INRs -Monitor and replete electrolytes as needed -INR subtherapeutic today as patient is not taking in food or meds. Will give dose of Lovenox and monitor in a.m. 2. Failure to thrive: PO intake of food and meds limited -Did discuss with NERY Ardon nephew. Advanced directives are very clear patient does not want artificial food or water. 3. Covid positive: Satting 92- 93% on2Lts. - cont Levaquin for PNA, - completed Remdesivir - cont dexamethasone, has 3 doses left of 10-day course - Oxygen as needed to keep o2>92 % - Tylenol for fevers. -Unable to meaningfully use I-S Acapella or prone. 4. Lewy body dementia -Continue rivastigmine as well as carbidopa levodopa -Unable to take rivastigmine orally. I did discuss case with Dr. Thakkar who is his neurologist. We did discuss transitioning him to rivastigmine transdermal in attempt to help with cognition. Discussed with pharmacy they will be able to get 13.5 mg patch per [address] Thakkar is agreeable with this. VTE prophylaxis: Coumadin, SCDs GI prophylaxis: Protonix Dispo: Pending placement Did discuss care with Duglas, nephew and NERY today. He is able to be reached at [phone]. He is wanting to honor John Paul's wishes and his advance directive. We will monitor how rivastigmine patch helps with cognition over the next day or 2 otherwise we may consider transitioning to palliative care and hospice on transfer to SNF.
[2020-10-15] MEDS: Pantoprazole 40 MG in Sodium Chloride 0.9% 10 ML IV SCH (08:46)
[2020-10-15] MEDS: Atenolol 50 MG Tab PO SCH ×2 (08:50→12:54)
[2020-10-15] MEDS: Diltiazem 120 MG Cap.CD PO SCH ×2 (08:50→12:53)
[2020-10-15] MEDS: RIVASTIGMINE 3 MG PO SCH ×2 (08:50→12:54)
[2020-10-15] MEDS ORDERED: Acetaminophen 650 MG Supp RECTAL PRN (09:27)
[2020-10-15] MEDS: Warfarin 2.5 MG Tab PO SCH ×2 (12:53→13:36)
[2020-10-15] MEDS: Dexamethasone 10 MG/ML SDV IVPUSH SCH (12:54)
[2020-10-15] MEDS: Levofloxacin/Dextrose 5%-Water 750 MG in Premix Bag 1 BAG IV SCH (12:55)
[2020-10-15] MEDS ORDERED: RIVASTIGMINE 13.3 MG/24 HR PO SCH (14:00)
[2020-10-15] MEDS: Enoxaparin 40 MG/0.4 ML Syringe SUBCUT SCH (15:03)
[2020-10-15] MEDS: Levothyroxine 25 MCG Tab PO SCH (21:04)
[2020-10-15] MEDS: Simvastatin 20 MG Tab PO SCH (21:04)
[2020-10-15] MEDS: Melatonin 3 MG Tab PO SCH (21:04)
[2020-10-15] MEDS: Montelukast 10 MG Tab PO SCH (21:05)
[2020-10-16] MEDS: Phosphorus #1 250 MG Tab PO SCH ×5 (00:25→23:58)
[2020-10-16] MEDS: Carbidopa/Levodopa 25-100 MG Tab PO SCH ×3 (05:47→22:12)
[2020-10-16 07:09] LABS: BLOOD UREA NITROGEN,BUN 25 mg/dL (7.0-18.0); CARBON DIOXIDE,CO2 25.5 mmol/L (21.0-32.0); CHLORIDE,CL 104 mmol/L (98-107); GLUCOSE RANDOM 117 mg/dL (74-106); POTASSIUM,K 3.9 mmol/L (3.5-5.1); SODIUM,NA 140 mmol/L (136-148)
[2020-10-16] MEDS: Pantoprazole 40 MG in Sodium Chloride 0.9% 10 ML IV SCH (08:17)
[2020-10-16] MEDS: RIVASTIGMINE 13.3 MG/24 HR SCH (08:27)
--- NOTE | 2020-10-16 08:42 | PCM.PN ---
- General Info Date of Service: 10/16/20 Admission Dx/Problem (Free Text): Admission Diagnosis/Problem Admission Diagnosis/Problem Weakness Subjective Update: Much more alert today. Answers questions. Denies any chest pain or shortness of breath. Reports he has mild headache still 6-8 out of 10. Per nursing he has eaten more including applesauce and 50% of dry cereal with milk. I encouraged him to continue eating as this will help him gain strength. No other concerns at this time. Still hard to obtain review of systems as patient does not answer all questions. Functional Status: Reports: Tolerating Diet. Denies: Pain Controlled - Review of Systems General: Reports: Fatigue, Malaise HEENT: Denies: No Symptoms Pulmonary: Reports: No Symptoms. Denies: Shortness of Breath Cardiovascular: Reports: No Symptoms. Denies: Chest Pain Gastrointestinal: Reports: No Symptoms. Denies: Abdominal Pain, Nausea, Vomiting - Patient Data Vitals - Most Recent: Last Vital Signs Temp 97.8 F 10/16/20 08:14 Pulse 81 10/16/20 08:14 Resp 16 10/16/20 08:14 BP 128/52 L 10/16/20 08:14 Pulse Ox 91 L 10/16/20 08:14 Weight - Most Recent: 79.787 kg I&O - Last 24 Hours: Intake & Output 10/15/20 10/16/20 10/16/20 22:59 06:59 14:59 Intake Total 40 460 Output Total 350 Balance -310 460 Lab Results Last 24 Hours: Laboratory Results - last 24 hr 10/16/20 10/16/20 10/16/20 Range/Units 06:23 06:23 06:23 WBC 4.85 (4.0-11.0) K/uL RBC 2.93 L (4.50-5.90) M/uL Hgb 10.4 L (13.0-17.0) g/dL Hct 29.4 L (38.0-50.0) % MCV 100.3 H (80.0-98.0) fL MCH 35.5 H (27.0-32.0) pg MCHC 35.4 (31.0-37.0) g/dL RDW Std Deviation 50.5 (28.0-62.0) fl RDW Coeff of Dano 14 (11.0-15.0) % Plt Count 298 (150-400) K/uL MPV 9.90 (7.40-12.00) fL Neut % (Auto) 93.0 H (48.0-80.0) % Lymph % (Auto) 6.6 L (16.0-40.0) % Hudson % (Auto) 0.4 (0.0-15.0) % Eos % (Auto) 0.0 (0.0-7.0) % Baso % (Auto) 0.0 (0.0-1.5) % Neut # (Auto) 4.5 (1.4-5.7) K/uL Lymph # (Auto) 0.3 L (0.6-2.4) K/uL Hudson # (Auto) 0.0 (0.0-0.8) K/uL Eos # (Auto) 0.0 (0.0-0.7) K/uL Baso # (Auto) 0.0 (0.0-0.1) K/uL Nucleated RBC % 0.0 /100WBC Nucleated RBCs # 0 K/uL INR 1.52 Sodium 140 (136-148) mmol/L Potassium 3.9 (3.5-5.1) mmol/L Chloride 104 (98-107) mmol/L Carbon Dioxide 25.5 (21.0-32.0) mmol/L BUN 25 H (7.0-18.0) mg/dL Creatinine 0.9 (0.8-1.3) mg/dL Est Cr Clr Drug Dosing 89.88 mL/min Estimated GFR (MDRD) > 60.0 ml/min Glucose 117 H (74-106) mg/dL Calcium 8.1 L (8.5-10.1) mg/dL Phosphorus 3.4 (2.6-4.7) mg/dL Magnesium 1.8 (1.8-2.4) mg/dL Med Orders - Current: Current Medications Acetaminophen (Tylenol) 650 mg PO Q6H PRN PRN Reason: fever/pain Last Admin: 10/10/20 13:16 Dose: 650 mg Documented by: Acetaminophen (Tylenol) 650 mg RECTAL Q4H PRN PRN Reason: Pain Last Admin: 10/15/20 09:50 Dose: 650 mg Documented by: Atenolol (Tenormin) 50 mg PO DAILY [facility] Last Admin: 10/15/20 12:54 Dose: 50 mg Documented by: Carbidopa/Levodopa (Sinemet 25-100 Mg) 1 tab PO TID [facility] Last Admin: 10/16/20 05:47 Dose: 1 tab Documented by: Dexamethasone (Decadron) 6 mg IVPUSH Q24H [facility] Stop: 10/18/20 21:00 Last Admin: 10/15/20 12:54 Dose: 6 mg Documented by: Diltiazem HCl (Diltiazem) 10 mg IVPUSH Q3H PRN PRN Reason: HR above 110 Last Admin: 10/08/20 20:33 Dose: 10 mg Documented by: Diltiazem HCl (Cardizem Cd) 120 mg PO DAILY [facility] Last Admin: 10/15/20 12:53 Dose: 120 mg Documented by: Enoxaparin Sodium (Lovenox) 40 mg SUBCUT Q24H [facility] Last Admin: 10/15/20 15:03 Dose: 40 mg Documented by: Pantoprazole Sodium 40 mg/ (Sodium Chloride) 10 mls @ 300 mls/hr IV DAILY [facility] Last Admin: 10/16/20 08:17 Dose: 300 mls/hr Documented by: Levofloxacin/Dextrose 750 mg/ (Premix) 150 mls @ 100 mls/hr IV Q24H [facility] Last Admin: 10/15/20 12:55 Dose: 100 mls/hr Documented by: Levothyroxine Sodium (Levothyroxine) 25 mcg PO BEDTIME [facility] Last Admin: 10/15/20 21:04 Dose: 25 mcg Documented by: Melatonin (Melatonin) 6 mg PO BEDTIME [facility] Last Admin: 10/15/20 21:04 Dose: 6 mg Documented by: Montelukast Sodium (Singulair) 10 mg PO BEDTIME [facility] Last Admin: 10/15/20 21:05 Dose: 10 mg Documented by: Ondansetron HCl (Zofran Odt) 4 mg PO Q4H PRN PRN Reason: nausea, able to take PO Rivastigmine 13.3 Mg (/24 Hrs) 1 each .XX Q24H [facility] Last Admin: 10/16/20 08:27 Dose: 1 each Documented by: Simvastatin (Zocor) 20 mg PO BEDTIME [facility] Last Admin: 10/15/20 21:04 Dose: 20 mg Documented by: Sodium Phosphate (Neutra-Phos) 250 mg PO QID [facility] Last Admin: 10/16/20 05:47 Dose: 250 mg Documented by: Warfarin Sodium (Coumadin Ask) 1 each PO DAILY@1400 [facility] Last Admin: 10/15/20 13:37 Dose: Not Given Documented by: Warfarin Sodium (Coumadin) 2.5 mg PO 10/16/20@1400 [facility] Stop: 10/16/20 16:00 Discontinued Medications Dexamethasone (Dexamethasone) 6 mg PO DAILY [facility] Stop: 10/18/20 18:31 Last Admin: 10/12/20 09:13 Dose: Not Given Documented by: Digoxin (Lanoxin) 250 mcg IVPUSH ONETIME ONE Stop: 10/07/20 22:51 Last Admin: 10/08/20 00:31 Dose: 250 mcg Documented by: Diltiazem HCl (Diltiazem) 10 mg IVPUSH ONETIME ONE Stop: 10/07/20 21:32 Last Admin: 10/07/20 22:10 Dose: 10 mg Documented by: Diltiazem HCl (Diltiazem) 10 mg IVPUSH ONETIME ONE Stop: 10/07/20 22:51 Last Admin: 10/07/20 23:12 Dose: 10 mg Documented by: Haloperidol Lactate (Haldol) 2 mg IM ONETIME ONE Stop: 10/10/20 21:44 Last Admin: 10/10/20 22:16 Dose: 2 mg Documented by: Sodium Chloride (Normal Saline) 1,000 mls @ 999 mls/hr IV .BOLUS ONE Stop: 10/07/20 14:51 Last Admin: 10/07/20 14:12 Dose: 999 mls/hr Documented by: Sodium Chloride (Normal Saline) 1,000 mls @ 125 mls/hr IV ASDIRECTED [facility] Sodium Chloride (Normal Saline) 1,000 mls @ 150 mls/hr IV ASDIRECTED ONE Stop: 10/08/20 01:09 Last Admin: 10/07/20 18:43 Dose: 125 mls/hr Documented by: Sodium Chloride (Normal Saline) 1,000 mls @ 150 mls/hr IV ASDIRECTED [facility] Last Admin: 10/11/20 03:57 Dose: 150 mls/hr Documented by: Levofloxacin/Dextrose 750 mg/ (Premix) 150 mls @ 100 mls/hr IV Q24H [facility] Last Admin: 10/10/20 12:57 Dose: Not Given Documented by: Remdesivir 200 mg/ Sodium (Chloride) 250 mls @ 250 mls/hr IV ONETIME ONE Stop: 10/08/20 18:30 Last Admin: 10/08/20 20:50 Dose: 250 mls/hr Documented by: Remdesivir 100 mg/ Sodium (Chloride) 100 mls @ 100 mls/hr IV Q24H [facility] Stop: 10/12/20 19:29 Remdesivir 100 mg/ Sodium (Chloride) 100 mls @ 100 mls/hr IV Q24H [facility] Stop: 10/12/20 21:59 Last Admin: 10/12/20 20:29 Dose: 100 mls/hr Documented by: Magnesium Sulfate (Magnesium Sulfate In Water Premix) 2 gm in 50 mls @ 50 mls/hr IV ONETIME ONE Stop: 10/10/20 07:01 Last Admin: 10/10/20 06:37 Dose: 50 mls/hr Documented by: Potassium Phosphate 30 mmole/ (Sodium Chloride) 510 mls @ 127.5 mls/hr IV ONETIME ONE Stop: 10/10/20 11:59 Last Admin: 10/10/20 08:06 Dose: 127.5 mls/hr Documented by: Magnesium Sulfate (Magnesium Sulfate In Water Premix) 2 gm in 50 mls @ 50 mls/hr IV ONETIME ONE Stop: 10/11/20 09:12 Last Admin: 10/11/20 09:16 Dose: 50 mls/hr Documented by: Sodium Chloride (Normal Saline) 1,000 mls @ 100 mls/hr IV Q10H [facility] Last Admin: 10/13/20 12:53 Dose: 100 mls/hr Documented by: Magnesium Sulfate (Magnesium Sulfate In Water Premix) 2 gm in 50 mls @ 50 mls/hr IV ONETIME ONE Stop: 10/13/20 12:17 Last Admin: 10/13/20 11:34 Dose: 50 mls/hr Documented by: Magnesium Sulfate (Magnesium Sulfate In Water Premix) 2 gm in 50 mls @ 50 mls/hr IV ONETIME ONE Stop: 10/14/20 09:15 Last Admin: 10/14/20 09:49 Dose: 50 mls/hr Documented by: Magnesium Sulfate (Magnesium Sulfate In Water Premix) 2 gm in 50 mls @ 50 mls/hr IV ONETIME ONE Stop: 10/15/20 08:52 Last Admin: 10/15/20 08:58 Dose: 50 mls/hr Documented by: Iopamidol (Isovue Multipack-370 (76%)) 80 ml IVPUSH ONETIME ST[facility] Stop: 10/08/20 15:33 Last Admin: 10/08/20 15:33 Dose: 80 ml Documented by: Ketorolac Tromethamine (Toradol) 30 mg IVPUSH ONETIME ONE Stop: 10/11/20 18:20 Last Admin: 10/11/20 18:47 Dose: 30 mg Documented by: Ketorolac Tromethamine (Toradol) 15 mg IVPUSH ONETIME ONE Stop: 10/12/20 15:01 Last Admin: 10/12/20 14:10 Dose: 15 mg Documented by: Lorazepam (Ativan) 1 mg IVPUSH ONETIME ONE Stop: 10/07/20 23:20 Last Admin: 10/07/20 23:38 Dose: 1 mg Documented by: Lorazepam (Ativan) 0.5 mg IVPUSH ONETIME ONE Stop: 10/08/20 03:23 Last Admin: 10/08/20 16:27 Dose: Not Given Documented by: Lorazepam (Ativan) 2 mg IVPUSH Q6H PRN PRN Reason: Agitation Last Admin: 10/11/20 14:28 Dose: 2 mg Documented by: Lorazepam (Ativan) 1 mg IVPUSH ONETIME ONE Stop: 10/10/20 21:45 Last Admin: 10/10/20 22:16 Dose: 1 mg Documented by: Metoprolol Succinate (Toprol Xl) 50 mg PO DAILY [facility] Last Admin: 10/09/20 10:39 Dose: 50 mg Documented by: Ondansetron HCl (Zofran) 4 mg IVPUSH ONETIME ONE Stop: 10/07/20 14:23 Last Admin: 10/07/20 14:50 Dose: 4 mg Documented by: Rivastigmine 3 Mg 1 each PO BID [facility] Last Admin: 10/15/20 12:54 Dose: 1 each Documented by: Rivastigmine 13.3 Mg (/24 Hrs) 1 each PO Q24H [facility] Last Admin: 10/15/20 13:38 Dose: Not Given Documented by: Phytonadione (Aquamephyton) 5 mg PO ONETIME ONE Stop: 10/13/20 13:53 Last Admin: 10/13/20 14:24 Dose: 5 mg Documented by: Quetiapine Fumarate (Seroquel) 25 mg PO BEDTIME [facility] Warfarin Sodium (Coumadin) 5 mg PO 10/08/20@0930 [facility] Stop: 10/08/20 09:31 Last Admin: 10/08/20 10:40 Dose: 5 mg Documented by: Warfarin Sodium (Coumadin) 1 mg PO 10/09/20@1400 [facility] Stop: 10/09/20 16:00 Last Admin: 10/09/20 15:26 Dose: 1 mg Documented by: Warfarin Sodium (Coumadin) 2.5 mg PO 10/10/20@1400 [facility] Stop: 10/10/20 15:00 Last Admin: 10/10/20 13:22 Dose: 2.5 mg Documented by: Warfarin Sodium (Coumadin) 1 mg PO 10/11/20@1400 [facility] Stop: 10/11/20 16:00 Last Admin: 10/11/20 17:55 Dose: 1 mg Documented by: Warfarin Sodium (Coumadin) 2.5 mg PO 10/14/20@1400 [facility] Stop: 10/14/20 16:00 Last Admin: 10/14/20 14:56 Dose: 2.5 mg Documented by: Warfarin Sodium (Coumadin) 2.5 mg PO 10/15/20@1400 [facility] Stop: 10/15/20 16:00 Last Admin: 10/15/20 13:36 Dose: Not Given Documented by: - Exam Quality Assessment: DVT Prophylaxis. No: Supplemental Oxygen General: Alert, Cooperative, No Acute Distress. No: Oriented Lungs: Clear to Auscultation, Normal Respiratory Effort Cardiovascular: Regular Rate, Regular Rhythm GI/Abdominal Exam: Normal Bowel Sounds, Soft, Non-Tender Extremities: Normal Inspection, Normal Range of Motion, Non-Tender, Other (Mild puffiness noted to all extremities. No overt pitting edema) Wound/Incisions: Healing Well Neurological: No New Focal Deficit, Other (Much more alert today vocal and interacting with staff.) Psy/Mental Status: Alert, Normal Affect, Normal Mood Sepsis Event Note - Evaluation Sepsis Screening Result: No Definite Risk - Focused Exam Vital Signs: Vital Signs Temp Pulse Resp BP Pulse Ox 10/16/20 08:14 97.8 F 81 16 128/52 L 91 L 10/16/20 04:00 97.9 F 84 15 129/63 91 L 10/16/20 00:00 97.9 F 95 16 114/70 92 L - Problem List & Annotations (1) COVID-19 SNOMED Code(s): 882303567 Code(s): U07.1 - COVID-19 Status: Acute Current Visit: Yes (2) Lewy body dementia SNOMED Code(s): 931103282 Code(s): G31.83 - DEMENTIA WITH LEWY BODIES; F02.80 - DEMENTIA IN OTH DISEASES CLASSD ELSWHR W/O BEHAVRL DISTURB Status: Chronic Current Visit: Yes (3) Supratherapeutic INR SNOMED Code(s): 253212445 Code(s): R79.1 - ABNORMAL COAGULATION PROFILE Status: Acute Current Visit: Yes (4) Atrial fibrillation with RVR SNOMED Code(s): 261715511282069 Code(s): I48.91 - UNSPECIFIED ATRIAL FIBRILLATION Status: Acute Priority: High Current Visit: No (5) Anticoagulant long-term use SNOMED Code(s): 652132301 Code(s): Z79.01 - [facility] (CURRENT) USE OF ANTICOAGULANTS Status: Chronic Current Visit: No (6) Hypercholesteremia SNOMED Code(s): 99420237 Code(s): E78.0 - PURE HYPERCHOLESTEROLEMIA * DO NOT USE * Status: Chronic Current Visit: No (7) Hypothyroid SNOMED Code(s): 88113814 Code(s): E03.9 - HYPOTHYROIDISM, UNSPECIFIED Status: Chronic Current Visit: No Qualifiers: Hypothyroidism type: unspecified Qualified Code(s): E03.9 - Hypothyroidism, unspecified - Problem List Review Problem List Initiated/Reviewed/Updated: Yes - My Orders Last 24 Hours: My Active Orders 10/15/20 09:27 Acetaminophen [Tylenol] 650 mg RECTAL Q4H PRN 10/15/20 14:15 Enoxaparin [Lovenox] 40 mg SUBCUT Q24H 10/17/20 05:11 BASIC METABOLIC PANEL,BMP [CHEM] AM CBC WITH AUTO DIFF [HEME] AM MAGNESIUM [CHEM] AM PHOSPHORUS [CHEM] AM 10/18/20 05:11 BASIC METABOLIC PANEL,BMP [CHEM] AM CBC WITH AUTO DIFF [HEME] AM MAGNESIUM [CHEM] AM PHOSPHORUS [CHEM] AM 10/19/20 05:11 BASIC METABOLIC PANEL,BMP [CHEM] AM CBC WITH AUTO DIFF [HEME] AM MAGNESIUM [CHEM] AM PHOSPHORUS [CHEM] AM - Plan Plan:: 69-year-old gentleman Covid positive without respiratory symptoms was admitted with pneumonia body dementia with significant decline and failure to thrive over the last 5 days. 1. A. fib: Continue Coumadin, INR supratherapeutic but has improved today after vitamin K. -Continue atenolol as well as diltiazem Continue daily INRs -Monitor and replete electrolytes as needed -INR remains subtherapeutic today at 1.5. Continue Lovenox and monitor in a.m. 2. Failure to thrive: -Became more alert last evening eating more but still very limited amount. And has able to take p.o. meds -We will update NERY Ardon. Advanced directives are very clear patient does not want artificial food or water. 3. Covid positive: Satting 92- 93% on2Lts. - cont Levaquin for PNA, day 6 of 7 today will discontinue after seventh dose - completed Remdesivir - cont dexamethasone, has 2 doses left of 10-day course last day is 10/18/2020 - Oxygen as needed to keep o2>92 % - Tylenol for fevers. -Unable to meaningfully use I-S Acapella or prone. 4. Lewy body dementia -Continue rivastigmine as well as carbidopa levodopa -Discussed rivastigmine with Dr. Thakkar yesterday will increase dose and place 13.5 mg patch. Monitor symptoms patient is definitely more alert this morning than last previous days. VTE prophylaxis: Coumadin, SCDs GI prophylaxis: Protonix Dispo: Pending placement Did discuss care with karol Ardon and NERY today. He is able to be reached at [phone]. He is wanting to honor John Paul's wishes and his advance directive. We will monitor how rivastigmine patch helps with cognition over the next day or 2 otherwise we may consider transitioning to palliative care and hospice on transfer to SNF.
[2020-10-16] MEDS: Atenolol 50 MG Tab PO SCH (09:23)
[2020-10-16] MEDS: Acetaminophen 325 MG Tab PO PRN ×2 (09:23→18:03)
[2020-10-16] MEDS: Diltiazem 120 MG Cap.CD PO SCH (09:23)
[2020-10-16] MEDS: Levofloxacin/Dextrose 5%-Water 750 MG in Premix Bag 1 BAG IV SCH (11:35)
[2020-10-16] MEDS: Enoxaparin 40 MG/0.4 ML Syringe SUBCUT SCH (13:20)
[2020-10-16] MEDS: Dexamethasone 10 MG/ML SDV IVPUSH SCH (13:20)
[2020-10-16] MEDS ORDERED: Warfarin 2.5 MG Tab PO SCH ×2 (14:00)
[2020-10-16] MEDS: Levothyroxine 25 MCG Tab PO SCH (20:47)
[2020-10-16] MEDS: Simvastatin 20 MG Tab PO SCH (20:48)
[2020-10-16] MEDS: Montelukast 10 MG Tab PO SCH (20:48)
[2020-10-16] MEDS: Melatonin 3 MG Tab PO SCH (20:48)
[2020-10-17 05:13] LABS: BLOOD UREA NITROGEN,BUN 28 mg/dL (7.0-18.0); CARBON DIOXIDE,CO2 26.8 mmol/L (21.0-32.0); CHLORIDE,CL 104 mmol/L (98-107); GLUCOSE RANDOM 147 mg/dL (74-106); POTASSIUM,K 3.5 mmol/L (3.5-5.1); SODIUM,NA 141 mmol/L (136-148)
[2020-10-17] MEDS: Carbidopa/Levodopa 25-100 MG Tab PO SCH ×3 (05:26→21:53)
[2020-10-17] MEDS: Phosphorus #1 250 MG Tab PO SCH ×4 (05:26→23:59)
[2020-10-17] MEDS: Pantoprazole 40 MG in Sodium Chloride 0.9% 10 ML IV SCH (08:05)
[2020-10-17] MEDS: Diltiazem 120 MG Cap.CD PO SCH (08:08)
[2020-10-17] MEDS: Atenolol 50 MG Tab PO SCH (08:09)
[2020-10-17] MEDS: RIVASTIGMINE 13.3 MG/24 HR SCH (08:26)
[2020-10-17] MEDS ORDERED: Magnesium Sulfate/Water 100 ML IV ONE (08:32)
--- NOTE | 2020-10-17 09:41 | PCM.PN ---
- General Info Date of Service: 10/17/20 Admission Dx/Problem (Free Text): Admission Diagnosis/Problem Admission Diagnosis/Problem Weakness Subjective Update: Much more alert today. Answers questions. Denies any chest pain or shortness of breath. Much more alert today. Sitting up in chair eating breakfast, not happy with his cold cream of wheat. Requesting for it to be harder. Needs assistance of nurse to help with feeding. But definitely has improved over the last 24 to 48 hours. Was up ambulating short distances with nurses but definitely is deconditioned and needing significant amount of assistance. No other concerns. Functional Status: Reports: Pain Controlled - Review of Systems General: Reports: Weakness. Denies: Malaise Pulmonary: Reports: No Symptoms. Denies: Shortness of Breath Cardiovascular: Reports: No Symptoms. Denies: Chest Pain Gastrointestinal: Reports: No Symptoms. Denies: Abdominal Pain, Nausea, Vomiting Genitourinary: Reports: No Symptoms. Denies: Dysuria, Frequency Musculoskeletal: Reports: No Symptoms Skin: Reports: No Symptoms Neurological: Reports: Difficulty Walking (Deconditioning) Psychiatric: Reports: No Symptoms - Patient Data Vitals - Most Recent: Last Vital Signs Temp 97.6 F 10/17/20 08:00 Pulse 89 10/17/20 08:09 Resp 16 10/17/20 08:00 BP 109/69 10/17/20 08:09 Pulse Ox 92 L 10/17/20 08:00 Weight - Most Recent: 78.88 kg I&O - Last 24 Hours: Intake & Output 10/16/20 10/17/20 10/17/20 22:59 06:59 14:59 Intake Total 500 774 Output Total 450 400 Balance 50 374 Lab Results Last 24 Hours: Laboratory Results - last 24 hr 10/17/20 10/17/20 10/17/20 Range/Units 04:46 04:46 04:46 WBC 5.03 (4.0-11.0) K/uL RBC 2.91 L (4.50-5.90) M/uL Hgb 10.6 L (13.0-17.0) g/dL Hct 29.3 L (38.0-50.0) % MCV 100.7 H (80.0-98.0) fL MCH 36.4 H (27.0-32.0) pg MCHC 36.2 (31.0-37.0) g/dL RDW Std Deviation 50.7 (28.0-62.0) fl RDW Coeff of [place] 14 (11.0-15.0) % Plt Count 319 (150-400) K/uL MPV 9.50 (7.40-12.00) fL Neut % (Auto) 94.0 H (48.0-80.0) % Lymph % (Auto) 5.6 L (16.0-40.0) % [place] % (Auto) 0.4 (0.0-15.0) % Eos % (Auto) 0.0 (0.0-7.0) % Baso % (Auto) 0.0 (0.0-1.5) % Neut # (Auto) 4.7 (1.4-5.7) K/uL Lymph # (Auto) 0.3 L (0.6-2.4) K/uL [place] # (Auto) 0.0 (0.0-0.8) K/uL Eos # (Auto) 0.0 (0.0-0.7) K/uL Baso # (Auto) 0.0 (0.0-0.1) K/uL Nucleated RBC % 0.0 /100WBC Nucleated RBCs # 0 K/uL INR 1.65 Sodium 141 (136-148) mmol/L Potassium 3.5 (3.5-5.1) mmol/L Chloride 104 (98-107) mmol/L Carbon Dioxide 26.8 (21.0-32.0) mmol/L BUN 28 H (7.0-18.0) mg/dL Creatinine 1.0 (0.8-1.3) mg/dL Est Cr Clr Drug Dosing 79.98 mL/min Estimated GFR (MDRD) > 60.0 ml/min Glucose 147 H (74-106) mg/dL Calcium 8.1 L (8.5-10.1) mg/dL Phosphorus 3.2 (2.6-4.7) mg/dL Magnesium 1.6 L (1.8-2.4) mg/dL Yony Results Last 24 Hours: Microbiology 10/16/20 17:15 C. difficile Antigen & Toxins A,B - Final Stool / Feces Med Orders - Current: Current Medications Acetaminophen (Tylenol) 650 mg PO Q6H PRN PRN Reason: fever/pain Last Admin: 10/16/20 18:03 Dose: 650 mg Documented by: Acetaminophen (Tylenol) 650 mg RECTAL Q4H PRN PRN Reason: Pain Last Admin: 10/15/20 09:50 Dose: 650 mg Documented by: Atenolol (Tenormin) 50 mg PO DAILY [facility] Last Admin: 10/17/20 08:09 Dose: 50 mg Documented by: Carbidopa/Levodopa (Sinemet 25-100 Mg) 1 tab PO TID [facility] Last Admin: 10/17/20 05:26 Dose: 1 tab Documented by: Dexamethasone (Decadron) 6 mg IVPUSH Q24H [facility] Stop: 10/18/20 21:00 Last Admin: 10/16/20 13:20 Dose: 6 mg Documented by: Diltiazem HCl (Diltiazem) 10 mg IVPUSH Q3H PRN PRN Reason: HR above 110 Last Admin: 10/08/20 20:33 Dose: 10 mg Documented by: Diltiazem HCl (Cardizem Cd) 120 mg PO DAILY [facility] Last Admin: 10/17/20 08:08 Dose: 120 mg Documented by: Enoxaparin Sodium (Lovenox) 40 mg SUBCUT Q24H [facility] Last Admin: 10/16/20 13:20 Dose: 40 mg Documented by: Pantoprazole Sodium 40 mg/ (Sodium Chloride) 10 mls @ 300 mls/hr IV DAILY [facility] Last Admin: 10/17/20 08:05 Dose: 300 mls/hr Documented by: Magnesium Sulfate (Magnesium Sulfate In Water Premix) 100 mls @ 33.333 mls/hr IV ONETIME ONE Stop: 10/17/20 11:31 Last Admin: 10/17/20 09:13 Dose: 33.333 mls/hr Documented by: Levothyroxine Sodium (Levothyroxine) 25 mcg PO BEDTIME [facility] Last Admin: 10/16/20 20:47 Dose: 25 mcg Documented by: Melatonin (Melatonin) 6 mg PO BEDTIME [facility] Last Admin: 10/16/20 20:48 Dose: 6 mg Documented by: Montelukast Sodium (Singulair) 10 mg PO BEDTIME [facility] Last Admin: 10/16/20 20:48 Dose: 10 mg Documented by: Ondansetron HCl (Zofran Odt) 4 mg PO Q4H PRN PRN Reason: nausea, able to take PO Rivastigmine 13.3 Mg (/24 Hrs) 1 each .XX Q24H [facility] Last Admin: 10/17/20 08:26 Dose: 1 each Documented by: Simvastatin (Zocor) 20 mg PO BEDTIME [facility] Last Admin: 10/16/20 20:48 Dose: 20 mg Documented by: Sodium Phosphate (Neutra-Phos) 250 mg PO QID [facility] Last Admin: 10/17/20 05:26 Dose: 250 mg Documented by: Warfarin Sodium (Coumadin Ask) 1 each PO DAILY@1400 [facility] Last Admin: 10/16/20 13:42 Dose: Not Given Documented by: Discontinued Medications Dexamethasone (Dexamethasone) 6 mg PO DAILY [facility] Stop: 10/18/20 18:31 Last Admin: 10/12/20 09:13 Dose: Not Given Documented by: Digoxin (Lanoxin) 250 mcg IVPUSH ONETIME ONE Stop: 10/07/20 22:51 Last Admin: 10/08/20 00:31 Dose: 250 mcg Documented by: Diltiazem HCl (Diltiazem) 10 mg IVPUSH ONETIME ONE Stop: 10/07/20 21:32 Last Admin: 10/07/20 22:10 Dose: 10 mg Documented by: Diltiazem HCl (Diltiazem) 10 mg IVPUSH ONETIME ONE Stop: 10/07/20 22:51 Last Admin: 10/07/20 23:12 Dose: 10 mg Documented by: Haloperidol Lactate (Haldol) 2 mg IM ONETIME ONE Stop: 10/10/20 21:44 Last Admin: 10/10/20 22:16 Dose: 2 mg Documented by: Sodium Chloride (Normal Saline) 1,000 mls @ 999 mls/hr IV .BOLUS ONE Stop: 10/07/20 14:51 Last Admin: 10/07/20 14:12 Dose: 999 mls/hr Documented by: Sodium Chloride (Normal Saline) 1,000 mls @ 125 mls/hr IV ASDIRECTED [facility] Sodium Chloride (Normal Saline) 1,000 mls @ 150 mls/hr IV ASDIRECTED ONE Stop: 10/08/20 01:09 Last Admin: 10/07/20 18:43 Dose: 125 mls/hr Documented by: Sodium Chloride (Normal Saline) 1,000 mls @ 150 mls/hr IV ASDIRECTED [facility] Last Admin: 10/11/20 03:57 Dose: 150 mls/hr Documented by: Levofloxacin/Dextrose 750 mg/ (Premix) 150 mls @ 100 mls/hr IV Q24H [facility] Last Admin: 10/10/20 12:57 Dose: Not Given Documented by: Remdesivir 200 mg/ Sodium (Chloride) 250 mls @ 250 mls/hr IV ONETIME ONE Stop: 10/08/20 18:30 Last Admin: 10/08/20 20:50 Dose: 250 mls/hr Documented by: Remdesivir 100 mg/ Sodium (Chloride) 100 mls @ 100 mls/hr IV Q24H [facility] Stop: 10/12/20 19:29 Remdesivir 100 mg/ Sodium (Chloride) 100 mls @ 100 mls/hr IV Q24H [facility] Stop: 10/12/20 21:59 Last Admin: 10/12/20 20:29 Dose: 100 mls/hr Documented by: Magnesium Sulfate (Magnesium Sulfate In Water Premix) 2 gm in 50 mls @ 50 mls/hr IV ONETIME ONE Stop: 10/10/20 07:01 Last Admin: 10/10/20 06:37 Dose: 50 mls/hr Documented by: Potassium Phosphate 30 mmole/ (Sodium Chloride) 510 mls @ 127.5 mls/hr IV ONETIME ONE Stop: 10/10/20 11:59 Last Admin: 10/10/20 08:06 Dose: 127.5 mls/hr Documented by: Levofloxacin/Dextrose 750 mg/ (Premix) 150 mls @ 100 mls/hr IV Q24H [facility] Stop: 10/16/20 13:29 Last Admin: 10/16/20 11:35 Dose: 100 mls/hr Documented by: Magnesium Sulfate (Magnesium Sulfate In Water Premix) 2 gm in 50 mls @ 50 mls/hr IV ONETIME ONE Stop: 10/11/20 09:12 Last Admin: 10/11/20 09:16 Dose: 50 mls/hr Documented by: Sodium Chloride (Normal Saline) 1,000 mls @ 100 mls/hr IV Q10H [facility] Last Admin: 10/13/20 12:53 Dose: 100 mls/hr Documented by: Magnesium Sulfate (Magnesium Sulfate In Water Premix) 2 gm in 50 mls @ 50 mls/hr IV ONETIME ONE Stop: 10/13/20 12:17 Last Admin: 10/13/20 11:34 Dose: 50 mls/hr Documented by: Magnesium Sulfate (Magnesium Sulfate In Water Premix) 2 gm in 50 mls @ 50 mls/hr IV ONETIME ONE Stop: 10/14/20 09:15 Last Admin: 10/14/20 09:49 Dose: 50 mls/hr Documented by: Magnesium Sulfate (Magnesium Sulfate In Water Premix) 2 gm in 50 mls @ 50 mls/hr IV ONETIME ONE Stop: 10/15/20 08:52 Last Admin: 10/15/20 08:58 Dose: 50 mls/hr Documented by: Iopamidol (Isovue Multipack-370 (76%)) 80 ml IVPUSH ONETIME [facility] Stop: 10/08/20 15:33 Last Admin: 10/08/20 15:33 Dose: 80 ml Documented by: Ketorolac Tromethamine (Toradol) 30 mg IVPUSH ONETIME ONE Stop: 10/11/20 18:20 Last Admin: 10/11/20 18:47 Dose: 30 mg Documented by: Ketorolac Tromethamine (Toradol) 15 mg IVPUSH ONETIME ONE Stop: 10/12/20 15:01 Last Admin: 10/12/20 14:10 Dose: 15 mg Documented by: Lorazepam (Ativan) 1 mg IVPUSH ONETIME ONE Stop: 10/07/20 23:20 Last Admin: 10/07/20 23:38 Dose: 1 mg Documented by: Lorazepam (Ativan) 0.5 mg IVPUSH ONETIME ONE Stop: 10/08/20 03:23 Last Admin: 10/08/20 16:27 Dose: Not Given Documented by: Lorazepam (Ativan) 2 mg IVPUSH Q6H PRN PRN Reason: Agitation Last Admin: 10/11/20 14:28 Dose: 2 mg Documented by: Lorazepam (Ativan) 1 mg IVPUSH ONETIME ONE Stop: 10/10/20 21:45 Last Admin: 10/10/20 22:16 Dose: 1 mg Documented by: Metoprolol Succinate (Toprol Xl) 50 mg PO DAILY [facility] Last Admin: 10/09/20 10:39 Dose: 50 mg Documented by: Ondansetron HCl (Zofran) 4 mg IVPUSH ONETIME ONE Stop: 10/07/20 14:23 Last Admin: 10/07/20 14:50 Dose: 4 mg Documented by: Rivastigmine 3 Mg 1 each PO BID [facility] Last Admin: 10/15/20 12:54 Dose: 1 each Documented by: Rivastigmine 13.3 Mg (/24 Hrs) 1 each PO Q24H [facility] Last Admin: 10/15/20 13:38 Dose: Not Given Documented by: Phytonadione (Aquamephyton) 5 mg PO ONETIME ONE Stop: 10/13/20 13:53 Last Admin: 10/13/20 14:24 Dose: 5 mg Documented by: Quetiapine Fumarate (Seroquel) 25 mg PO BEDTIME [facility] Warfarin Sodium (Coumadin) 5 mg PO 10/08/20@0930 [facility] Stop: 10/08/20 09:31 Last Admin: 10/08/20 10:40 Dose: 5 mg Documented by: Warfarin Sodium (Coumadin) 1 mg PO 10/09/20@1400 [facility] Stop: 10/09/20 16:00 Last Admin: 10/09/20 15:26 Dose: 1 mg Documented by: Warfarin Sodium (Coumadin) 2.5 mg PO 10/10/20@1400 [facility] Stop: 10/10/20 15:00 Last Admin: 10/10/20 13:22 Dose: 2.5 mg Documented by: Warfarin Sodium (Coumadin) 1 mg PO 10/11/20@1400 [facility] Stop: 10/11/20 16:00 Last Admin: 10/11/20 17:55 Dose: 1 mg Documented by: Warfarin Sodium (Coumadin) 2.5 mg PO 10/14/20@1400 [facility] Stop: 10/14/20 16:00 Last Admin: 10/14/20 14:56 Dose: 2.5 mg Documented by: Warfarin Sodium (Coumadin) 2.5 mg PO 10/15/20@1400 [facility] Stop: 10/15/20 16:00 Last Admin: 10/15/20 13:36 Dose: Not Given Documented by: Warfarin Sodium (Coumadin) 2.5 mg PO 10/16/20@1400 [facility] Stop: 10/16/20 16:00 Warfarin Sodium (Coumadin) 2.5 mg PO 10/16/20@1400 [facility] Stop: 10/16/20 14:01 Last Admin: 10/16/20 13:37 Dose: 2.5 mg Documented by: - Exam General: Alert, Oriented (Intermittent confusion noted but otherwise much improved from previous), Cooperative, No Acute Distress Lungs: Clear to Auscultation, Normal Respiratory Effort Cardiovascular: Regular Rate, Regular Rhythm GI/Abdominal Exam: Normal Bowel Sounds, Soft, Non-Tender Back Exam: Normal Inspection, Full Range of Motion Extremities: Normal Inspection, Normal Range of Motion, Non-Tender, No Pedal Edema Skin: Ecchymosis Neurological: No New Focal Deficit Psy/Mental Status: Alert, Normal Affect, Normal Mood Sepsis Event Note - Evaluation Sepsis Screening Result: No Definite Risk - Focused Exam Vital Signs: Vital Signs Temp Pulse Pulse Resp BP BP Pulse Ox 10/17/20 08:09 89 109/69 10/17/20 08:08 89 109/69 10/17/20 08:00 97.6 F 89 16 109/69 92 L 10/17/20 06:00 10/17/20 04:00 98.2 F 90 16 101/71 92 L Pulse Ox 10/17/20 08:09 10/17/20 08:08 10/17/20 08:00 10/17/20 06:00 94 L 10/17/20 04:00 - Problem List & Annotations (1) COVID-19 SNOMED Code(s): 405554136 Code(s): U07.1 - COVID-19 Status: Acute Current Visit: Yes (2) Lewy body dementia SNOMED Code(s): 178308736 Code(s): G31.83 - DEMENTIA WITH LEWY BODIES; F02.80 - DEMENTIA IN OTH DISEASES CLASSD ELSWHR W/O BEHAVRL DISTURB Status: Chronic Current Visit: Yes (3) Supratherapeutic INR SNOMED Code(s): 348538700 Code(s): R79.1 - ABNORMAL COAGULATION PROFILE Status: Acute Current Visit: Yes (4) Atrial fibrillation with RVR SNOMED Code(s): 160130586760888 Code(s): I48.91 - UNSPECIFIED ATRIAL FIBRILLATION Status: Acute Priority: High Current Visit: No (5) Anticoagulant long-term use SNOMED Code(s): 849774870 Code(s): Z79.01 - PRISON (CURRENT) USE OF ANTICOAGULANTS Status: Chronic Current Visit: No (6) Hypercholesteremia SNOMED Code(s): 93660924 Code(s): E78.0 - PURE HYPERCHOLESTEROLEMIA * DO NOT USE * Status: Chronic Current Visit: No (7) Hypothyroid SNOMED Code(s): 10579948 Code(s): E03.9 - HYPOTHYROIDISM, UNSPECIFIED Status: Chronic Current Visit: No Qualifiers: Hypothyroidism type: unspecified Qualified Code(s): E03.9 - Hypothyroidism, unspecified - Problem List Review Problem List Initiated/Reviewed/Updated: Yes - My Orders Last 24 Hours: My Active Orders 10/16/20 11:48 Intake and Output [RC] Q12H Up to Chair [RC] ASDIRECTED 10/16/20 11:49 Positioning, Patient [RC] Q2HR 10/16/20 14:46 Consult to Workplace Trainer And Assessor [CONS] Routine 10/16/20 Dinner Regular Diet [DIET] 10/17/20 08:32 Magnesium Sulfate/Water [Magnesium Sulfate in Water Premix] 100 ml IV ONETIME 10/18/20 05:11 BASIC METABOLIC PANEL,BMP [CHEM] AM CBC WITH AUTO DIFF [HEME] AM MAGNESIUM [CHEM] AM PHOSPHORUS [CHEM] AM 10/19/20 05:11 BASIC METABOLIC PANEL,BMP [CHEM] AM CBC WITH AUTO DIFF [HEME] AM MAGNESIUM [CHEM] AM PHOSPHORUS [CHEM] AM - Plan Plan:: 69-year-old gentleman Covid positive without respiratory symptoms was admitted with pneumonia body dementia with significant decline and failure to thrive over the last 5 days. 1. A. fib: Continue Coumadin -Continue atenolol as well as diltiazem Continue daily INRs -Monitor and replete electrolytes as needed -INR remains subtherapeutic today at 1.5. Continue Lovenox and monitor in a.m. 2. Failure to thrive: -Cognition has improved significantly eating and drinking much more than previous days. -Consult dietitian for further dietary instructions. -We will update NERY Ardon nephew. Advanced directives are very clear patient does not want artificial food or water. 3. Covid positive: Satting 92- 93% on2Lts. -Completed Levaquin - completed Remdesivir - cont dexamethasone, day 9/ - Oxygen as needed to keep o2>92 % - Tylenol for fevers. -Unable to meaningfully use I-S Acapella or prone. 4. Lewy body dementia -Continue rivastigmine as well as carbidopa levodopa -D continue 13.3 mg rivastigmine patch cognition has improved -Dr. Thakkar updated on cognition VTE prophylaxis: Coumadin, SCDs GI prophylaxis: Protonix Dispo: Plan for [place] in a.m. Did discuss care with Duglas, nephen and NERY today. He is able to be reached at [phone].
[2020-10-17] MEDS ORDERED: Warfarin 2.5 MG Tab PO SCH (13:00)
[2020-10-17] MEDS: Dexamethasone 10 MG/ML SDV IVPUSH SCH (13:49)
[2020-10-17] MEDS: Enoxaparin 40 MG/0.4 ML Syringe SUBCUT SCH (13:50)
[2020-10-17] MEDS: Levothyroxine 25 MCG Tab PO SCH (20:24)
[2020-10-17] MEDS: Simvastatin 20 MG Tab PO SCH (20:24)
[2020-10-17] MEDS: Montelukast 10 MG Tab PO SCH (20:25)
[2020-10-17] MEDS: Melatonin 3 MG Tab PO SCH (20:25)
[2020-10-18] MEDS: Phosphorus #1 250 MG Tab PO SCH (05:06)
[2020-10-18] MEDS: Carbidopa/Levodopa 25-100 MG Tab PO SCH (05:06)
[2020-10-18 06:23] LABS: BLOOD UREA NITROGEN,BUN 31 mg/dL (7.0-18.0); CARBON DIOXIDE,CO2 26.7 mmol/L (21.0-32.0); CHLORIDE,CL 101 mmol/L (98-107); GLUCOSE RANDOM 155 mg/dL (74-106); POTASSIUM,K 3.7 mmol/L (3.5-5.1); SODIUM,NA 137 mmol/L (136-148)
[2020-10-18] MEDS ORDERED: Sodium Chloride 0.9% 500 ML IV SCH (08:00)
[2020-10-18] MEDS ORDERED: Sodium Chloride 0.9% 1,000 ML IV SCH (08:00)
[2020-10-18 08:04] VITALS: BP 118/78
[2020-10-18] MEDS: Atenolol 50 MG Tab PO SCH (08:04)
[2020-10-18 08:05] VITALS: PULSE 93
[2020-10-18] MEDS: Pantoprazole 40 MG in Sodium Chloride 0.9% 10 ML IV SCH (08:05)
[2020-10-18] MEDS: Diltiazem 120 MG Cap.CD PO SCH (08:05)
[2020-10-18] MEDS: RIVASTIGMINE 13.3 MG/24 HR SCH (08:05)
--- NOTE | 2020-10-18 08:53 | PCM.DCSUM1 ---
Discharge Summary - Hospital Course Diagnosis: Stroke: No - Discharge Data Discharge Date: 10/18/20 Discharge Disposition: DC/Tfer to SNF 03 Condition: Good - Referral to Home Health Primary Care Physician: Godwin Reyes MD - Discharge Diagnosis/Problem(s) (1) COVID-19 SNOMED Code(s): 617483094 ICD Code: U07.1 - COVID-19 Status: Acute (2) Lewy body dementia SNOMED Code(s): 662760874 ICD Code: G31.83 - DEMENTIA WITH LEWY BODIES; F02.80 - DEMENTIA IN OTH DISEASES CLASSD ELSWHR W/O BEHAVRL DISTURB Status: Chronic (3) Supratherapeutic INR SNOMED Code(s): 914002265 ICD Code: R79.1 - ABNORMAL COAGULATION PROFILE Status: Acute (4) Atrial fibrillation with RVR SNOMED Code(s): 659878590940150 ICD Code: I48.91 - UNSPECIFIED ATRIAL FIBRILLATION Status: Acute Priority: High (5) Anticoagulant long-term use SNOMED Code(s): 991617049 ICD Code: Z79.01 - SNF (CURRENT) USE OF ANTICOAGULANTS Status: Chronic (6) Hypercholesteremia SNOMED Code(s): 63353458 ICD Code: E78.0 - PURE HYPERCHOLESTEROLEMIA * DO NOT USE * Status: Chronic (7) Hypothyroid SNOMED Code(s): 89224401 ICD Code: E03.9 - HYPOTHYROIDISM, UNSPECIFIED Status: Chronic Qualifiers: Hypothyroidism type: unspecified Qualified Code(s): E03.9 - Hypothyroidism, unspecified - Patient Summary/Data Consults: Consultations 10/08/20 17:04 Consult to Case Management/Crime Scene Photographer [CONS] Routine 10/09/20 14:40 Consult to Speech Language Pathology [HOME CARE AIDE Evaluation and Treatment] [CONS] Routine 10/10/20 10:27 PT Evaluation and Treatment [CONS] Routine 10/14/20 15:49 Consult to Spiritual Care [CONS] Routine 10/16/20 14:46 Consult to Care Process Manager [CONS] Routine Hospital Course: Admitting diagnoses Failure to thrive COVID-19 pneumonia Discharge diagnoses: [id number] Failure to thrive-resolved A. fib with RVR, RVR resolved Other PMH: Lewy body dementia Anticoagulation Hypothyroidism John Paul was admitted secondary to several day failure to thrive decline noted at home. He was admitted and diagnosed with COVID-19 plus pneumonia but at the time had no respiratory symptoms. During his stay he did develop hypoxia and was started on COVID-19 treatment which included 10-day course of dexamethasone along with 5-day course remdesivir. He also received Levaquin for pneumonia. He was slowly weaned off oxygen and has been very stable respiratory le the last few days. His stay was complicated by a bout of A. fib with RVR. He was placed on diltiazem drip and then weaned off and continued on diltiazem 120 mg p.o. daily. 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 INR was maintained during his stay. He did have CTA which ruled out PE any right heart strain. He was continued on Levaquin for a total of 7 days. During his stay he did become very somnolent and nonverbal. He was refusing to eat or take any medications. At this time I was in contact frequently with Duglas GABRIEL, advanced directives were reviewed and we had started talking about palliative care. He was started on carbidopa-levodopa low-dose 3 times daily due to some tremors. At the same time rivastigmine was changed to transdermal patch and after this was placed and patient location moved to more very bright room patient became more alert and cognition did improve. We have kept rivastigmine patch 13.3 mg on at this time. Dr. Thakkar, his neurologist, is updated on this dose change. The last few days John Paul has been very alert conversational and has been eating very well. He has been up ambulating short distances with nursing staff but is definitely deconditioned from acute hospitalization and illness. He is unable to take care of himself at home and family is unable to provide 24-hour care. He will be discharged to [facility], John Paul is aware and agreeable at this time. I did speak with Dr. Lebron regarding transfer to [facility] and he is agreeable to seeing patient once he is at [facility]. She will be discharged home today with Coumadin 5 mg daily INR will be checked on Wednesday October 21, 2020. He will have PT OT and speech therapy to evaluate and treat when he is at [facility]. He will continue all his previous medications including atenolol and levothyroxine. TSH was checked during stay and this was 1.63. He will be discharged to [facility] today. He is to return to ER or clinic if concerns should arise. Nursing staff updated NERY Ardon regarding discharge yesterday. - Patient Instructions Diet: Regular Diet as Tolerated Activity: As Tolerated, No Strenuous Activities Driving: Do Not Drive Showering/Bathing: May Shower Notify Provider of: Fever, Increased Pain, Swelling and Redness, Drainage, Nause a and/or Vomiting Other/Special Instructions: PT/OT/ST to evaluate and treat. Monitor INR Wednesday October 21, 2020, notify physician for dose management. - Discharge Plan *PRESCRIPTION DRUG MONITORING PROGRAM REVIEWED*: Not Applicable *COPY OF PRESCRIPTION DRUG MONITORING REPORT IN PATIENT ERIKA: Not Applicable Prescriptions/Med Rec: Warfarin [Coumadin] 2.5 mg PO DAILY #30 tab Rivastigmine 13.3 mg TD DAILY #1 box Home Medications: Home Meds Levothyroxine 25 mcg PO BEDTIME 12/06/15 [History] Montelukast [Singulair] 10 mg PO BEDTIME 12/06/15 [History] Simvastatin 40 mg PO BEDTIME 12/06/15 [History] atenoloL [Atenolol] 50 mg PO DAILY 10/08/20 [History] Acetaminophen [Tylenol] 650 mg PO Q6H PRN tablet 10/16/20 [Rx] Acetaminophen [Tylenol] 650 mg RECTAL Q4H PRN supp 10/16/20 [Rx] Carbidopa/Levodopa [Carbidopa-Levodopa 25-100] 1 tab PO TID tablet 10/16/20 [Rx] Diltiazem [Cardizem CD] 120 mg PO DAILY cap.cd 10/16/20 [Rx] Melatonin 6 mg PO BEDTIME tablet 10/16/20 [Rx] Rivastigmine 13.3 mg TD DAILY #1 box 10/16/20 [Rx] Warfarin [Coumadin] 2.5 mg PO DAILY #30 tab 10/17/20 [Rx] Oxygen Therapy Mode: Room Air Patient Handouts: Bleeding Precautions When on Anticoagulant Therapy, Adult, COVID-19 Frequently Asked Questions, COVID-19, Warfarin tablets, COVID-19: How to Protect Yourself and Others - CDC, Rivastigmine skin patches, Coronavirus Information 12/18/19, Prevent the Spread of COVID-19 if You Are Sick - [facility] Referrals: Earl Lebron MD [Ordering Only Provider] - - Discharge Summary/Plan Comment DC Time >30 min.: No - Patient Data Vitals - Most Recent: Last Vital Signs Temp 98.1 F 10/18/20 08:02 Pulse 93 10/18/20 08:05 Resp 17 10/18/20 08:02 BP 118/78 10/18/20 08:05 Pulse Ox 94 L 10/18/20 08:02 Weight - Most Recent: 78.9 kg I&O - Last 24 hours: Intake & Output 10/17/20 10/18/20 10/18/20 22:59 06:59 14:59 Intake Total 640 853 Output Total 600 750 Balance 40 103 Lab Results - Last 24 hrs: Laboratory Results - last 24 hr 10/18/20 10/18/20 Range/Units 05:57 05:57 WBC 4.34 (4.0-11.0) K/uL RBC 2.82 L (4.50-5.90) M/uL Hgb 10.1 L (13.0-17.0) g/dL Hct 28.6 L (38.0-50.0) % MCV 101.4 H (80.0-98.0) fL MCH 35.8 H (27.0-32.0) pg MCHC 35.3 (31.0-37.0) g/dL RDW Std Deviation 52.3 (28.0-62.0) fl RDW Coeff of Dano 14 (11.0-15.0) % Plt Count 326 (150-400) K/uL MPV 9.60 (7.40-12.00) fL Neut % (Auto) 93.3 H (48.0-80.0) % Lymph % (Auto) 6.7 L (16.0-40.0) % Routt % (Auto) 0.0 (0.0-15.0) % Eos % (Auto) 0.0 (0.0-7.0) % Baso % (Auto) 0.0 (0.0-1.5) % Neut # (Auto) 4.1 (1.4-5.7) K/uL Lymph # (Auto) 0.3 L (0.6-2.4) K/uL Routt # (Auto) 0.0 (0.0-0.8) K/uL Eos # (Auto) 0.0 (0.0-0.7) K/uL Baso # (Auto) 0.0 (0.0-0.1) K/uL Nucleated RBC % 0.0 /100WBC Nucleated RBCs # 0 K/uL Sodium 137 (136-148) mmol/L Potassium 3.7 (3.5-5.1) mmol/L Chloride 101 (98-107) mmol/L Carbon Dioxide 26.7 (21.0-32.0) mmol/L BUN 31 H (7.0-18.0) mg/dL Creatinine 1.1 (0.8-1.3) mg/dL Est Cr Clr Drug Dosing 72.72 mL/min Estimated GFR (MDRD) > 60.0 ml/min Glucose 155 H (74-106) mg/dL Calcium 8.2 L (8.5-10.1) mg/dL Phosphorus 4.0 (2.6-4.7) mg/dL Magnesium 2.1 (1.8-2.4) mg/dL Med Orders - Current: Current Medications Acetaminophen (Tylenol) 650 mg PO Q6H PRN PRN Reason: fever/pain Last Admin: 10/16/20 18:03 Dose: 650 mg Documented by: Acetaminophen (Tylenol) 650 mg RECTAL Q4H PRN PRN Reason: Pain Last Admin: 10/15/20 09:50 Dose: 650 mg Documented by: Atenolol (Tenormin) 50 mg PO DAILY [facility] Last Admin: 10/18/20 08:04 Dose: 50 mg Documented by: Carbidopa/Levodopa (Sinemet 25-100 Mg) 1 tab PO TID [facility] Last Admin: 10/18/20 05:06 Dose: 1 tab Documented by: Dexamethasone (Decadron) 6 mg IVPUSH Q24H [facility] Stop: 10/18/20 21:00 Last Admin: 10/17/20 13:49 Dose: 6 mg Documented by: Diltiazem HCl (Diltiazem) 10 mg IVPUSH Q3H PRN PRN Reason: HR above 110 Last Admin: 10/08/20 20:33 Dose: 10 mg Documented by: Diltiazem HCl (Cardizem Cd) 120 mg PO DAILY [facility] Last Admin: 10/18/20 08:05 Dose: 120 mg Documented by: Enoxaparin Sodium (Lovenox) 40 mg SUBCUT Q24H [facility] Last Admin: 10/17/20 13:50 Dose: 40 mg Documented by: Pantoprazole Sodium 40 mg/ (Sodium Chloride) 10 mls @ 300 mls/hr IV DAILY [facility] Last Admin: 10/18/20 08:05 Dose: 300 mls/hr Documented by: Levothyroxine Sodium (Levothyroxine) 25 mcg PO BEDTIME [facility] Last Admin: 10/17/20 20:24 Dose: 25 mcg Documented by: Melatonin (Melatonin) 6 mg PO BEDTIME [facility] Last Admin: 10/17/20 20:25 Dose: 6 mg Documented by: Montelukast Sodium (Singulair) 10 mg PO BEDTIME [facility] Last Admin: 10/17/20 20:25 Dose: 10 mg Documented by: Ondansetron HCl (Zofran Odt) 4 mg PO Q4H PRN PRN Reason: nausea, able to take PO Rivastigmine 13.3 Mg (/24 Hrs) 1 each .XX Q24H [facility] Last Admin: 10/18/20 08:05 Dose: 1 each Documented by: Simvastatin (Zocor) 20 mg PO BEDTIME [facility] Last Admin: 10/17/20 20:24 Dose: 20 mg Documented by: Sodium Phosphate (Neutra-Phos) 250 mg PO QID [facility] Last Admin: 10/18/20 05:06 Dose: 250 mg Documented by: Warfarin Sodium (Coumadin Ask) 1 each PO DAILY@1400 [facility] Last Admin: 10/17/20 14:15 Dose: Not Given Documented by: Warfarin Sodium (Coumadin) 2.5 mg PO 10/18/20@1400 [facility] Stop: 10/18/20 15:00 Discontinued Medications Dexamethasone (Dexamethasone) 6 mg PO DAILY [facility] Stop: 10/18/20 18:31 Last Admin: 10/12/20 09:13 Dose: Not Given Documented by: Digoxin (Lanoxin) 250 mcg IVPUSH ONETIME ONE Stop: 10/07/20 22:51 Last Admin: 10/08/20 00:31 Dose: 250 mcg Documented by: Diltiazem HCl (Diltiazem) 10 mg IVPUSH ONETIME ONE Stop: 10/07/20 21:32 Last Admin: 10/07/20 22:10 Dose: 10 mg Documented by: Diltiazem HCl (Diltiazem) 10 mg IVPUSH ONETIME ONE Stop: 10/07/20 22:51 Last Admin: 10/07/20 23:12 Dose: 10 mg Documented by: Haloperidol Lactate (Haldol) 2 mg IM ONETIME ONE Stop: 10/10/20 21:44 Last Admin: 10/10/20 22:16 Dose: 2 mg Documented by: Sodium Chloride (Normal Saline) 1,000 mls @ 999 mls/hr IV .BOLUS ONE Stop: 10/07/20 14:51 Last Admin: 10/07/20 14:12 Dose: 999 mls/hr Documented by: Sodium Chloride (Normal Saline) 1,000 mls @ 125 mls/hr IV ASDIRECTED [facility] Sodium Chloride (Normal Saline) 1,000 mls @ 150 mls/hr IV ASDIRECTED ONE Stop: 10/08/20 01:09 Last Admin: 10/07/20 18:43 Dose: 125 mls/hr Documented by: Sodium Chloride (Normal Saline) 1,000 mls @ 150 mls/hr IV ASDIRECTED [facility] Last Admin: 10/11/20 03:57 Dose: 150 mls/hr Documented by: Levofloxacin/Dextrose 750 mg/ (Premix) 150 mls @ 100 mls/hr IV Q24H [facility] Last Admin: 10/10/20 12:57 Dose: Not Given Documented by: Remdesivir 200 mg/ Sodium (Chloride) 250 mls @ 250 mls/hr IV ONETIME ONE Stop: 10/08/20 18:30 Last Admin: 10/08/20 20:50 Dose: 250 mls/hr Documented by: Remdesivir 100 mg/ Sodium (Chloride) 100 mls @ 100 mls/hr IV Q24H [facility] Stop: 10/12/20 19:29 Remdesivir 100 mg/ Sodium (Chloride) 100 mls @ 100 mls/hr IV Q24H [facility] Stop: 10/12/20 21:59 Last Admin: 10/12/20 20:29 Dose: 100 mls/hr Documented by: Magnesium Sulfate (Magnesium Sulfate In Water Premix) 2 gm in 50 mls @ 50 mls/hr IV ONETIME ONE Stop: 10/10/20 07:01 Last Admin: 10/10/20 06:37 Dose: 50 mls/hr Documented by: Potassium Phosphate 30 mmole/ (Sodium Chloride) 510 mls @ 127.5 mls/hr IV ONETIME ONE Stop: 10/10/20 11:59 Last Admin: 10/10/20 08:06 Dose: 127.5 mls/hr Documented by: Levofloxacin/Dextrose 750 mg/ (Premix) 150 mls @ 100 mls/hr IV Q24H [facility] Stop: 10/16/20 13:29 Last Admin: 10/16/20 11:35 Dose: 100 mls/hr Documented by: Magnesium Sulfate (Magnesium Sulfate In Water Premix) 2 gm in 50 mls @ 50 mls/hr IV ONETIME ONE Stop: 10/11/20 09:12 Last Admin: 10/11/20 09:16 Dose: 50 mls/hr Documented by: Sodium Chloride (Normal Saline) 1,000 mls @ 100 mls/hr IV Q10H [facility] Last Admin: 10/13/20 12:53 Dose: 100 mls/hr Documented by: Magnesium Sulfate (Magnesium Sulfate In Water Premix) 2 gm in 50 mls @ 50 mls/hr IV ONETIME ONE Stop: 10/13/20 12:17 Last Admin: 10/13/20 11:34 Dose: 50 mls/hr Documented by: Magnesium Sulfate (Magnesium Sulfate In Water Premix) 2 gm in 50 mls @ 50 mls/hr IV ONETIME ONE Stop: 10/14/20 09:15 Last Admin: 10/14/20 09:49 Dose: 50 mls/hr Documented by: Magnesium Sulfate (Magnesium Sulfate In Water Premix) 2 gm in 50 mls @ 50 mls/hr IV ONETIME ONE Stop: 10/15/20 08:52 Last Admin: 10/15/20 08:58 Dose: 50 mls/hr Documented by: Magnesium Sulfate (Magnesium Sulfate In Water Premix) 100 mls @ 33.333 mls/hr IV ONETIME ONE Stop: 10/17/20 11:31 Last Admin: 10/17/20 09:13 Dose: 33.333 mls/hr Documented by: Sodium Chloride (Normal Saline) 1,000 mls @ 125 mls/hr IV Q8H [facility] Stop: 10/18/20 15:59 Sodium Chloride (Normal Saline) 500 mls @ 999 mls/hr IV .BOLUS [facility] Last Admin: 10/18/20 08:40 Dose: 999 mls/hr Documented by: Iopamidol (Isovue Multipack-370 (76%)) 80 ml IVPUSH ONETIME STA Stop: 10/08/20 15:33 Last Admin: 10/08/20 15:33 Dose: 80 ml Documented by: Ketorolac Tromethamine (Toradol) 30 mg IVPUSH ONETIME ONE Stop: 10/11/20 18:20 Last Admin: 10/11/20 18:47 Dose: 30 mg Documented by: Ketorolac Tromethamine (Toradol) 15 mg IVPUSH ONETIME ONE Stop: 10/12/20 15:01 Last Admin: 10/12/20 14:10 Dose: 15 mg Documented by: Lorazepam (Ativan) 1 mg IVPUSH ONETIME ONE Stop: 10/07/20 23:20 Last Admin: 10/07/20 23:38 Dose: 1 mg Documented by: Lorazepam (Ativan) 0.5 mg IVPUSH ONETIME ONE Stop: 10/08/20 03:23 Last Admin: 10/08/20 16:27 Dose: Not Given Documented by: Lorazepam (Ativan) 2 mg IVPUSH Q6H PRN PRN Reason: Agitation Last Admin: 10/11/20 14:28 Dose: 2 mg Documented by: Lorazepam (Ativan) 1 mg IVPUSH ONETIME ONE Stop: 10/10/20 21:45 Last Admin: 10/10/20 22:16 Dose: 1 mg Documented by: Metoprolol Succinate (Toprol Xl) 50 mg PO DAILY [facility] Last Admin: 10/09/20 10:39 Dose: 50 mg Documented by: Ondansetron HCl (Zofran) 4 mg IVPUSH ONETIME ONE Stop: 10/07/20 14:23 Last Admin: 10/07/20 14:50 Dose: 4 mg Documented by: Rivastigmine 3 Mg 1 each PO BID [facility] Last Admin: 10/15/20 12:54 Dose: 1 each Documented by: Rivastigmine 13.3 Mg (/24 Hrs) 1 each PO Q24H [facility] Last Admin: 10/15/20 13:38 Dose: Not Given Documented by: Phytonadione (Aquamephyton) 5 mg PO ONETIME ONE Stop: 10/13/20 13:53 Last Admin: 10/13/20 14:24 Dose: 5 mg Documented by: Quetiapine Fumarate (Seroquel) 25 mg PO BEDTIME [facility] Warfarin Sodium (Coumadin) 5 mg PO 10/08/20@0930 [facility] Stop: 10/08/20 09:31 Last Admin: 10/08/20 10:40 Dose: 5 mg Documented by: Warfarin Sodium (Coumadin) 1 mg PO 10/09/20@1400 [facility] Stop: 10/09/20 16:00 Last Admin: 10/09/20 15:26 Dose: 1 mg Documented by: Warfarin Sodium (Coumadin) 2.5 mg PO 10/10/20@1400 [facility] Stop: 10/10/20 15:00 Last Admin: 10/10/20 13:22 Dose: 2.5 mg Documented by: Warfarin Sodium (Coumadin) 1 mg PO 10/11/20@1400 [facility] Stop: 10/11/20 16:00 Last Admin: 10/11/20 17:55 Dose: 1 mg Documented by: Warfarin Sodium (Coumadin) 2.5 mg PO 10/14/20@1400 [facility] Stop: 10/14/20 16:00 Last Admin: 10/14/20 14:56 Dose: 2.5 mg Documented by: Warfarin Sodium (Coumadin) 2.5 mg PO 10/15/20@1400 [facility] Stop: 10/15/20 16:00 Last Admin: 10/15/20 13:36 Dose: Not Given Documented by: Warfarin Sodium (Coumadin) 2.5 mg PO 10/16/20@1400 [facility] Stop: 10/16/20 16:00 Warfarin Sodium (Coumadin) 2.5 mg PO 10/16/20@1400 [facility] Stop: 10/16/20 14:01 Last Admin: 10/16/20 13:37 Dose: 2.5 mg Documented by: Warfarin Sodium (Coumadin) 2.5 mg PO 10/17/20@1300 [facility] Stop: 10/17/20 13:01 Last Admin: 10/17/20 13:49 Dose: 2.5 mg Documented by: - Exam General: Reports: Alert, Oriented (X2), Cooperative, No Acute Distress Lungs: Reports: Clear to Auscultation, Normal Respiratory Effort Cardiovascular: Reports: Regular Rate, Regular Rhythm GI/Abdominal Exam: Normal Bowel Sounds, Soft, Non-Tender Skin: Reports: Warm, Dry, Ecchymosis (Large healing bruise to right hip. Multiple bruises to arms and hands due to IV pokes and lab sticks. Healing abrasions to anterior shins and legs from previous injuries at home.) Neurological: Reports: No New Focal Deficit Psy/Mental Status: Reports: Alert, Normal Affect, Normal Mood
[2020-10-18] MEDS ORDERED: Warfarin 2.5 MG Tab PO SCH (14:00)
== END 2020-10-18 10:50 | DRG 177 ==
LOC: MW.ED 13:13 → MW.MS 17:06 → MW.ICU 23:20 → MW.OB 10-09 10:23 → MW.ICU 10-09 10:31 → MW.MS 10-10 10:28 → MW.ICU 10-15 17:23
PROVIDERS: ADMIT Internal Medicine; ATTEND Internal Medicine
PROC: XW033E5 Introduction of Remdesivir Anti-infective into Peripheral Vein, Percutaneous Approach, New Technology Group 5 (ICD-10-PCS; principal; 2020-10-08)
DX: U07.1 COVID-19 (principal); J12.82 Pneumonia due to coronavirus disease 2019; E46 Unspecified protein-calorie malnutrition; N17.9 Acute kidney failure, unspecified; I48.20 Chronic atrial fibrillation, unspecified; G31.83 Neurocognitive disorder with Lewy bodies; F02.80 Dementia in other diseases classified elsewhere, unspecified severity, without behavioral disturbance, psychotic disturbance, mood disturbance, and anxiety; R79.1 Abnormal coagulation profile; E78.00 Pure hypercholesterolemia, unspecified; R53.1 Weakness; Z66 Do not resuscitate; H54.7 Unspecified visual loss; I48.91 Unspecified atrial fibrillation; I10 Essential (primary) hypertension; K21.9 Gastro-esophageal reflux disease without esophagitis; I48.92 Unspecified atrial flutter; G89.29 Other chronic pain; M54.9 Dorsalgia, unspecified; E83.42 Hypomagnesemia; E83.39 Other disorders of phosphorus metabolism; F03.90 Unspecified dementia, unspecified severity, without behavioral disturbance, psychotic disturbance, mood disturbance, and anxiety; Z88.6 Allergy status to analgesic agent; F32.9 Major depressive disorder, single episode, unspecified; E03.9 Hypothyroidism, unspecified; Z88.1 Allergy status to other antibiotic agents; Z91.02 Food additives allergy status; Z91.040 Latex allergy status; Z88.0 Allergy status to penicillin; Z88.8 Allergy status to other drugs, medicaments and biological substances; Z91.048 Other nonmedicinal substance allergy status; Z79.01 Long term (current) use of anticoagulants; Z79.890 Hormone replacement therapy; Z79.899 Other long term (current) drug therapy
CPT/HCPCS: 0240U; 36415; 36600; 51701; 70450; 71045; 71046; 71275; 73502; 74018; 80048; 80053; 81001; 82550; 82803; 83605; 83690; 83735; 84100; 84443; 85025; 85610; 85730; 87040; 87045; 87046; 87086; 87324; 87449; 87899; 92610; 96374; 97162; 97530; 99285; 99222; 99232; 99233; 99238; 99284; A9270-GY; C9113; J1100; J1160; J1630; J1650; J1885; J1956; J2060; J2405; J3430; J3475; J3490; J7030; J7040; J7050; J8540; Q9967

== ENCOUNTER 2022-03-04 12:18 | Emergency (ER) | payer MEDICARE, OTHER ==
[2022-03-04 14:12] VITALS: BP 96/62; PULSE 58
== END 2022-03-04 14:22 | disposition home or self-care (01) ==
LOC: MW.ED 12:18
DX: M54.50 Low back pain, unspecified (principal); M25.551 Pain in right hip; I48.91 Unspecified atrial fibrillation; I10 Essential (primary) hypertension; K21.9 Gastro-esophageal reflux disease without esophagitis; E03.9 Hypothyroidism, unspecified; Z88.8 Allergy status to other drugs, medicaments and biological substances; Z88.0 Allergy status to penicillin; Z91.018 Allergy to other foods; Z91.040 Latex allergy status; Z79.899 Other long term (current) drug therapy; Z79.01 Long term (current) use of anticoagulants
CPT/HCPCS: 70450; 70450-26; 72125; 72125-26; 72131; 72131-26; 72192; 72192-26; 73030-26-RT; 73030-RT; 73080-26-RT; 73080-RT; 99284-25; 99285

== ENCOUNTER 2022-06-01 18:56 | Emergency (ER) | payer MEDICARE, OTHER ==
[2022-06-01 19:48] LABS: BLOOD UREA NITROGEN,BUN 18 mg/dL (7.0-18.0); CARBON DIOXIDE,CO2 28.2 mmol/L (21.0-32.0); CHLORIDE,CL 104 mmol/L (98-107); GLUCOSE RANDOM 112 mg/dL (74-106); POTASSIUM,K 4.4 mmol/L (3.5-5.1); SODIUM,NA 140 mmol/L (136-148)
[2022-06-01 19:49] LABS: ESTIMATED GFR 59 mL/min (>60)
[2022-06-01] MEDS ORDERED: Morphine 4 MG/ML VIAL IVPUSH STA ×2 (20:40→23:38)
[2022-06-01 23:54] VITALS: BP 116/68; PULSE 117
== END 2022-06-02 00:19 ==
LOC: MW.ED 18:56
DX: S72.041A Displaced fracture of base of neck of right femur, initial encounter for closed fracture (principal); S00.81XA Abrasion of other part of head, initial encounter; E03.9 Hypothyroidism, unspecified; I10 Essential (primary) hypertension; Z88.8 Allergy status to other drugs, medicaments and biological substances; Z88.6 Allergy status to analgesic agent; Z91.018 Allergy to other foods; Z88.1 Allergy status to other antibiotic agents; Z91.040 Latex allergy status; Z88.0 Allergy status to penicillin; Z79.899 Other long term (current) drug therapy; Z79.01 Long term (current) use of anticoagulants; Z20.822 Contact with and (suspected) exposure to COVID-19; W01.10XA Fall on same level from slipping, tripping and stumbling with subsequent striking against unspecified object, initial encounter
CPT/HCPCS: 29505; 36415; 70450; 71045; 72125; 73502; 73552; 80053; 83735; 85025; 85610; 93005; 96374; 96376; 99291; J2270; U0002; 93010

== ENCOUNTER 2023-03-02 20:37 | Emergency (ER) | payer MEDICARE, OTHER ==
[2023-03-02] MEDS ORDERED: Acetaminophen 500 MG Tab PO ONE (20:47)
[2023-03-02 20:56] LABS: HEMATOCRIT 31.3 % (38.0-50.0); HEMOGLOBIN 11.4 g/dL (13.0-17.0); MEAN CORPUSCULAR HEMOGLOBIN 40.7 pg (27.0-32.0); MEAN CORPUSCULAR HGB CONC 36.4 g/dL (31.0-37.0); MEAN CORPUSCULAR VOLUME 111.8 fL (80.0-98.0); WHITE BLOOD CELL COUNT,WBC 1.32 K/uL (4.0-11.0)
[2023-03-02] MEDS ORDERED: Ketorolac 30 MG/ML SDV IVPUSH ONE (20:56)
[2023-03-02 21:23] LABS: A/G RATIO 0.9 (0.9-1.6); ALANINE AMINOTRANSFERASE,ALT 18 IU/L (14-63); ALBUMIN 3.4 g/dL (3.4-5.0); ALKALINE PHOSPHATASE 81 U/L (46-116); ASPARTATE AMNIOTRANSFERASE,AST 18 IU/L (15-37); BILIRUBIN TOTAL 1.1 mg/dL (0.2-1.0); BLOOD UREA NITROGEN,BUN 18 mg/dL (7.0-18.0); CALCIUM 8.5 mg/dL (8.5-10.1); CARBON DIOXIDE,CO2 26.5 mmol/L (21.0-32.0); CHLORIDE,CL 104 mmol/L (98-107); CREATININE 1.2 mg/dL (0.8-1.3); GLUCOSE RANDOM 125 mg/dL (74-106); MAGNESIUM 1.7 mg/dL (1.8-2.4); POTASSIUM,K 4.5 mmol/L (3.5-5.1); PROTEIN TOTAL,TP 7.1 g/dL (6.4-8.2); SODIUM,NA 139 mmol/L (136-148)
[2023-03-02 21:26] LABS: INR 1.15 (0.86-1.11); PTT,PARTIAL THROMBOPLSTIN TIME 26.6 SEC (23.9-30.7)
[2023-03-02 21:30] LABS: ESTIMATED GFR 65 mL/min (>60)
[2023-03-02 21:39] LABS: PLATELET COUNT,PLT 135 K/uL (150-400)
[2023-03-02 21:40] LABS: BAND ABSOLUTE MAN 0.1; BAND PERCENT MAN 4 %; LYMPHOCYTES ABSOLUTE MAN 0.8 (0.6-2.4); LYMPHOCYTES PERCENT MAN 57 % (16.0-40.0); SEG NEUTROPHILS ABSOLUTE MAN 0.5 (1.4-5.7); SEG NEUTROPHILS PERCENT MAN 39 % (48.0-80.0)
[2023-03-02 22:32] LABS: BILIRUBIN,URINE NEGATIVE (NEGATIVE); COLOR,URINE DARK YELLOW; GLUCOSE,URINE NEGATIVE (NEGATIVE); KETONES,URINE 15 mg/dL (NEGATIVE); LEUKOCYTE ESTERASE,URINE NEGATIVE (NEGATIVE); NITRITE,URINE NEGATIVE (NEGATIVE); OCCULT BLOOD,URINE TRACE-INTACT (NEGATIVE); PROTEIN,URINE 30 mg/dL (NEGATIVE); UROBILINOGEN,URINE 0.2 EU/dL (<2.0)
[2023-03-02 22:39] LABS: APPEARANCE,URINE CLEAR
[2023-03-02 22:40] LABS: BACTERIA,URINE FEW (NEGATIVE); EPITHELIAL CELLS,URINE RARE (NONE-FEW); MUCUS,URINE FEW (NONE-MOD); RBC,URINE 0-2 (0-2/HPF); WBC,URINE 0-3 (0-5/HPF)
[2023-03-02] MEDS ORDERED: Sodium Chloride 0.9% 1,000 ML IV ONE ×2 (22:40→23:58)
[2023-03-02] MEDS ORDERED: Iopamidol 755 MG/ML 500 ML Multipack Bottle IVPUSH STA (23:16)
[2023-03-02] MEDS ORDERED: Metoprolol Tartrate 5 MG/5 ML SDV IVPUSH ONE (23:45)
[2023-03-03] MEDS ORDERED: Diltiazem IR 60 MG Tab PO ONE (00:21)
[2023-03-03 01:25] VITALS: BP 125/78; PULSE 98
== END 2023-03-03 01:25 ==
LOC: MW.ED 20:37
DX: U07.1 COVID-19 (principal); I48.91 Unspecified atrial fibrillation; I10 Essential (primary) hypertension; E03.9 Hypothyroidism, unspecified; Z79.01 Long term (current) use of anticoagulants; Z86.16 Personal history of COVID-19; Z88.8 Allergy status to other drugs, medicaments and biological substances; Z91.040 Latex allergy status; Z88.0 Allergy status to penicillin; Z91.018 Allergy to other foods; Z79.899 Other long term (current) drug therapy
CPT/HCPCS: 36415; 71045; 71275; 80053; 81001; 83735; 84484; 85025; 85610; 85730; 96361; 96374; 96375; 99285; A9270; J1885; J3490; J7030; Q9967; 93010; 99284